=== PATIENT | female | born 1945 | race Caucasian/White ===

== ENCOUNTER 2021-03-10 14:08 | Outpatient (CLI) | payer MEDICARE, SELFPAY | END 2021-03-10 14:09 | disposition home or self-care (01) | LOC: ANHCOVIDVC 14:08 | PROVIDERS: PCP Family Medicine | DX: Z23 Encounter for immunization (principal) | CPT/HCPCS: 0001A; 91300 ==

== ENCOUNTER 2021-03-31 13:50 | Outpatient (CLI) | payer MEDICARE, SELFPAY | END 2021-03-31 13:51 | disposition home or self-care (01) | LOC: ANHCOVIDVC 13:50 | PROVIDERS: PCP Family Medicine | DX: Z23 Encounter for immunization (principal) | CPT/HCPCS: 0002A; 91300 ==

== ENCOUNTER 2021-06-11 07:30 | Outpatient (RCR) | payer MEDICARE, SELFPAY ==
--- NOTE | 2021-03-08 09:16 | PCWOUND ---
Wocn NOte Left messages on three separate days no answer from patient, left message with provider unable to schedule patent at this time.
[2021-04-09 13:43] VITALS: BMI 31.7
--- NOTE | 2021-05-07 12:21 | PCWOUND ---
WOCN NOTE patient unable to make appointment due to no transportation. Rescheduled for next Monday05/14/21 at 1300.
== END 2021-06-28 08:16 | disposition home or self-care (01) ==
LOC: ANHWOC 07:30
PROVIDERS: PCP Nurse Practitioner; Visit Provider Plastic Surgery
DX: L02.211 Cutaneous abscess of abdominal wall (principal)
CPT/HCPCS: 99211; 99212; G0463

== ENCOUNTER 2021-07-11 13:20 | Emergency (ER) | payer MEDICARE, SELFPAY ==
--- NOTE | ~2021-07-11 | CT_ITS ---
EXAMINATION: CT abdomen pelvis wo con DATE: 07/11/2021 14:33 INDICATION: Right flank pain TECHNIQUE: Computed tomography (CT) of the abdomen and pelvis was performed without intravenous contr ast. Automated exposure control and iterative reconstruction technique were employed. The dose-length product was 362.95 mGy-cm. COMPARISON: None FINDINGS: Lung bases are clear. Visualized inferior heart is normal. Atherosclerotic coronary artery calcific l esion. No pericardial or pleural effusion. There are few prominent paraesophageal lymph nodes near th e thoracic hiatus the largest measuring 8 mm in maximal short axis diameter. Cholecystectomy clips th e gallbladder fossa. Liver, spleen, pancreas and bilateral adrenal glands are normal. 1 mm nonobstruc ting stones at the lower pole of the left kidney and at the interpolar region of the right kidney. Un changed pattern of phleboliths and atherosclerotic calcific lesions the pelvis. No ureteral stones or hydronephrosis. Bowels including the appendix are normal. The uterus and bilateral ovaries are not i dentified and have likely been surgically resected a few surgical clips in the left and right pelvis which could be related to associated lymph node dissections. No free intraperitoneal gas or fluid. No pathologically enlarged abdominal or pelvic lymphadenopathy. Moderate to severe lower lumbar spondyl osis. IMPRESSION: 1. A couple bilateral obstructing 1 mm renal stones. No ureteral stones or hydronephrosis. Reviewed, dictated and finalized at location A. IMPRESSION: 1. A couple bilateral obstructing 1 mm renal stones. No ureteral stones or hydr onephrosis.
[2021-07-11 13:22] VITALS: BP 167/71; PULSE 78; RESP 17; TEMP 36.7; O2SAT 99
[2021-07-11 14:05] LABS: Basophils Percent Auto 0.4 % (0.2-1.2); Eosinophils Absolute Auto 0.1 K/mm3 (0-0.3); Eosinophils Percent Auto 0.9 % (0-4.4); Hematocrit 40.9 % (37.0-47.0); Hemoglobin 13.7 g/dL (12.0-15.0); Immature Granulocyte Absolute 0.04 K/mm3 (0.00-0.031); Immature Granulocyte Percent A 0.5 % (0-0.5); Lymphocytes Absolute Auto 0.92 K/mm3 (0.9-3.2); Lymphocytes Percent Auto 10.8 % (18.3-44.2); Mean Corpuscular HGB Conc 33.5 g/dl (32-36); Mean Corpuscular Volume 86.5 fl (80-100); Mean Platelet Volume 9.5 fl (7.4-10.4); Monocytes Absolute Auto 0.5 K/mm3 (0.1-0.6); Monocytes Percent Auto 6.1 % (2.6-8.5); Neutrophils Absolute Auto 6.9 K/mm3 (1.3-6.7); Neutrophils Percent Auto 81.3 % (45.5-73.1); Platelet Count Result 268 k/mm3 (150-375); Red Blood Count 4.73 M/mm3 (4.2-5.4); Red Cell Distribution Width 12.9 % (11.5-14.5); White Blood Count 8.5 K/mm3 (4.5-10.0)
[2021-07-11 14:14] LABS: Anion Gap 4 mmol/L (8-16); Blood Urea Nitrogen 16 mg/dL (7-17); Calcium 9.5 mg/dL (8.4-10.2); Carbon Dioxide 28 mmol/L (22-30); Chloride 102 mmol/L (98-107); Estimated CRCL calculation 71 ml/min; Estimated Glomerular Filt Rate > 60; Glucose 269 mg/dL (65-110); Potassium 4.1 mmol/L (3.4-5.0); Sodium 134 mmol/L (137-145)
[2021-07-11 16:08] VITALS: BP 145/73; PULSE 82; RESP 18; TEMP 36.9; O2SAT 99
--- NOTE | 2021-07-11 19:31 | ED.GENADULT ---
HPI - General Adult General Chief complaint: Urogenital-Female Stated complaint: right flank pain/ abd pain Time Seen by Provider: 07/11/21 18:19 Source: patient Mode of arrival: ambulatory Limitations: no limitations History of Present Illness HPI narrative: Patient presents for evaluation of right-sided abdominal pain intermittently for the last 2 days. Pain has been intermittent, occurring approximately 4 times per day lasting up to 8 hours at a time, although duration of episodes is variable. She states the pain is sharp, rated 6 out of 10 in severity. She has experienced nausea without vomiting. No fever, chills, change in bowel pattern. Last bowel movement was yesterday, solid, without the presence of blood or mucus in the stool. She denies any urinary symptoms on my initial interview but later states she has not urinated since last night. Surgical history positive for total hysterectomy. She does not consume ETOH. Denies additional complaints or concerns. Related Data Home Medications Medication Instructions Recorded Confirmed ferrous sulfate 325 mg (65 mg 325 mg PO DAILY 10/11/19 04/09/21 iron) tablet Allergies Allergy/AdvReac Type Severity Reaction Status Date / Time insulin glargine Allergy Unknown Unknown Verified 03/01/21 15:19 morphine Allergy Unknown Unknown Verified 03/01/21 15:19 Review of Systems Review of Systems: CONSTITUTIONAL: Denies fever, chills, or sweats. EYES: Denies visual changes, redness, or discharge. ENT: Denies rhinorrhea, congestion, sore throat, or otalgia. CARDIOVASCULAR: Denies chest pain, palpitations, or edema. RESPIRATORY: Denies cough or dyspnea. GASTROINTESTINAL: Reports right-sided abdominal pain with nausea but no vomiting. Denies constipation or diarrhea GENITOURINARY: Denies urinary frequency, dysuria, hematuria SKIN: Denies rash or itching. MUSCULOSKELETAL: Denies back pain, joint pain, or myalgia. NEUROLOGIC: Denies headache, numbness, dizziness, or weakness. PSYCHIATRIC: Denies anxiety or depression. [facility] Past Medical History Medical History (Updated 07/11/21 @ 20:31 by Efren Rider, [facility], ) CVA, old, hemiparesis Essential (primary) hypertension Hyperlipidemia, unspecified Major depressive disorder, single episode, unspecified Type 2 diabetes, uncontrolled, with neuropathy Surgical History Surgical History History of hysterectomy Family History Family History Father Family history of malignant neoplasm Hypertension Carcinoma of colon Family history of diabetes mellitus in first degree relative Mother Hypertension Cerebrovascular accident Sibling Hypertension Family history of diabetes mellitus in first degree relative Other Diabetes mellitus Family history of cardiovascular disease Social History Social History Smoking status: Never smoker Alcohol intake: never Gender identity (if verbalized by the patient): Female Exam Narrative: GENERAL: Well-appearing, well-nourished, and in no acute distress. HEAD: Normocephalic, atraumatic. EYES: PERRLA and EOMI. ENT: Nares clear, no rhinorrhea or epistaxis. Mucous membranes moist. Oropharynx without tonsillar hypertrophy exudate or other lesions. Bilateral TMs pearly márquez nonbulging NECK: Supple. No adenopathy or masses. No carotid bruits or JVD CHEST: Clear to auscultation. No respiratory distress. No wheezes rales or rhonchi HEART: Regular rate and rhythm. No murmur heard. Normal peripheral pulses. ABDOMEN: Soft, tender to right upper quadrant right lower quadrant and suprapubic region without rebound or guarding. Abdomen is nondistended, normal active bowel sounds. EXTREMITIES: Normal range of motion. No edema. SKIN: Warm, dry, no rash. NEURO: No focal deficits. Alert and oriented x3. PSYCH: No
[2021-07-11 20:03] LABS: Add Urine Microscopic? YES; Appearance Urine Clear (Clear); Bacteria Urine Trace /hpf; Bilirubin Urine Negative (Negative); Blood Urine 1+ (Negative); Color Urine Yellow (Yellow); Glucose Urine UA 3+ mg/dL (Negative); Ketones Urine Trace mg/dL (Negative); Leukocyte Esterase Ur Trace LEU/UL (Negative); Mucus Urine Rare /lpf; Nitrate Urine Negative (Negative); Protein Urine 2+ mg/dL (Negative); RBC Urine 0-2 /hpf (0-2); Specific Grav Ur 1.018 (1.001-1.035); Squamous Epithelial Cell Urine Few /hpf (Few); WBC Urine 0-3 /hpf
[2021-07-11] MEDS: KETOROLAC 30 MG/ML VIAL (*BKC) IM (20:16)
[2021-07-11 20:19] VITALS: BP 174/82; PULSE 73; RESP 22; O2SAT 100
[2021-07-11 20:55] LABS: Alanine Aminotransferase 22 U/L (4-35); Albumin Level 4.1 g/dL (3.5-5.1); Alkaline Phosphatase 69 U/L (38-126); Aspartate Amino Transferase 45 U/L (14-36); Bilirubin,Total 0.8 mg/dL (0.2-1.3); Lipase 141 U/L (23-300)
[2021-07-11 21:55] VITALS: BP 149/86; PULSE 84; RESP 17; O2SAT 97
== END 2021-07-11 21:56 | disposition home or self-care (01) ==
PROVIDERS: Emergency Medicine; Emergency Provider Nurse Practitioner; PCP Nurse Practitioner
DX: N20.0 Calculus of kidney (principal); I25.2 Old myocardial infarction; I10 Essential (primary) hypertension; E78.5 Hyperlipidemia, unspecified; F32.9 Major depressive disorder, single episode, unspecified; E11.9 Type 2 diabetes mellitus without complications
CPT/HCPCS: 36415; 74176; 80048; 80076; 81001; 83690; 85025; 96372; 99284; J1885

== ENCOUNTER 2022-01-26 17:30 | Outpatient (CLI) | payer MEDICARE, SELFPAY ==
--- NOTE | ~2022-01-26 | XR_ITS ---
XR hip LT min 3V w AP pelvis 01/26/2022 18:26 Indication: Left hip pain Procedure: AP pelvis and 3 views left Comparison: No prior studies for comparison. Findings: There is anatomic alignment. Pelvic rings are intact. No acute fracture or traumatic malali gnment. No significant soft tissue abnormality. No foreign bodies. There is lower lumbar spondylosis. Impression: 1: No acute bone or joint abnormality. Reviewed, dictated and finalized at location A. ORK STRATEGIST Impression: 1: No acute bone or joint abnormality.
--- NOTE | ~2022-01-26 | XR_ITS ---
XR knee RT 3V 01/26/2022 18:26 Indication: Right knee pain Procedure: 3 views right knee Comparison: 08/31/2010 Findings: There is a right total knee arthroplasty. There is a joint effusion. Prosthesis well seated . No fracture, subluxation or dislocation. There are loose bodies adjacent to the joint space. Impression: 1: No acute fracture. 2: Small joint effusion. Reviewed, dictated and finalized at location A. LE LIP TURNER Impression: 1: No acute fracture. 2: Small joint effusion.
== END 2022-01-26 17:31 | disposition home or self-care (01) ==
PROVIDERS: PCP Nurse Practitioner; Visit Provider Nurse Practitioner
DX: M25.561 Pain in right knee (principal); M25.559 Pain in unspecified hip; R26.81 Unsteadiness on feet; M25.461 Effusion, right knee
CPT/HCPCS: 73502; 73562

== ENCOUNTER 2022-01-26 18:19 | Emergency (ER) | payer MEDICARE, SELFPAY ==
[2022-01-26 18:28] VITALS: BP 146/67; PULSE 83; RESP 16; TEMP 36.6; O2SAT 100
--- NOTE | 2022-01-26 18:33 | ECG_ITS ---
Measurements Intervals [place] Rate: 73 P: 32 CT: 128 QRS: 15 QRSD: 84 T: 64 QT: 378 QTc: 418 Interpretive Statements SINUS RHYTHM NONSPECIFIC ST & T-WAVE ABNORMALITY ABNORMAL ECG NO PREVIOUS ECG AVAILABLE FOR COMPARISON Electronically Signed On 01-27-2022 9:45:20 LINEN ROOM ATTENDANT by Efren Sellers M.D.
[2022-01-26 18:56] LABS: Basophils Absolute Auto 0.1 K/mm3 (0.0-0.1); Basophils Percent Auto 0.5 % (0.2-1.2); Eosinophils Absolute Auto 0.1 K/mm3 (0-0.3); Eosinophils Percent Auto 0.6 % (0-4.4); Hematocrit 40.9 % (37.0-47.0); Hemoglobin 13.6 g/dL (12.0-15.0); Immature Granulocyte Absolute 0.05 K/mm3 (0.00-0.031); Immature Granulocyte Percent A 0.5 % (0-0.5); Lymphocytes Absolute Auto 1.73 K/mm3 (0.9-3.2); Lymphocytes Percent Auto 16.3 % (18.3-44.2); Mean Corpuscular HGB Conc 33.3 g/dl (32-36); Mean Corpuscular Hemoglobin 29.6 pg (26-34); Mean Corpuscular Volume 88.9 fl (80-100); Mean Platelet Volume 9.5 fl (7.4-10.4); Monocytes Absolute Auto 0.6 K/mm3 (0.1-0.6); Neutrophils Absolute Auto 8.1 K/mm3 (1.3-6.7); Neutrophils Percent Auto 76.1 % (45.5-73.1); Platelet Count Result 269 k/mm3 (150-375); White Blood Count 10.6 K/mm3 (4.5-10.0)
[2022-01-26 19:05] LABS: Alanine Aminotransferase 21 U/L (4-35); Albumin Level 4.4 g/dL (3.5-5.1); Alkaline Phosphatase 96 U/L (38-126); Anion Gap 9 mmol/L (8-16); Aspartate Amino Transferase 51 U/L (14-36); Bilirubin,Total 0.5 mg/dL (0.2-1.3); Blood Urea Nitrogen 15 mg/dL (7-17); Calcium 9.6 mg/dL (8.4-10.2); Carbon Dioxide 26 mmol/L (22-30); Chloride 105 mmol/L (98-107); Estimated CRCL calculation 64 ml/min; Estimated Glomerular Filt Rate > 60; Glucose 162 mg/dL (65-110); Potassium 4.3 mmol/L (3.4-5.0); Sodium 140 mmol/L (137-145)
[2022-01-26] MEDS: MECLIZINE HCL 25 MG TABLET PO (19:08)
--- NOTE | 2022-01-26 19:40 | ED.GENADULT ---
HPI - General Adult General Chief complaint: Recheck/Abnormal Lab/Rx Stated complaint: HTN, NAUSEA/DIZZY Time Seen by Provider: 01/26/22 18:40 History of Present Illness HPI narrative: Patient is a 76-year-old female who presents ER with complaint of high blood pressure. Patient saw her PCP today for myriad of issues. She was in outpatient imaging when she got dizzy. It was then found that her systolic blood pressure was in the 200s. Patient reports has been having intermittent dizziness for 2 weeks. Worse with leaning forward and turning her head. Occasionally associated with nausea but no vomiting. Has history of vertigo but does not take medication for it. No chest pain or chest pressure. No focal weakness in arm or leg. No slurred speech. Related Data Home Medications Medication Instructions Recorded Confirmed ferrous sulfate 325 mg (65 mg 325 mg PO DAILY 10/11/19 01/26/22 iron) tablet [id number]-tfj-zcvp-FA-lutein 1 tablet PO DAILY 11/25/21 01/26/22 [Centrum Silver Women] aspirin [Adult Low Dose Aspirin] 81 mg PO DAILY 12/16/21 01/26/22 Allergies Allergy/AdvReac Type Severity Reaction Status Date / Time morphine AdvReac Unknown Nausea and Verified 01/26/22 20:02 Vomiting Review of Systems Review of Systems: All systems reviewed & are unremarkable except as noted in HPI and below Constitutional: Constitutional: Denies chills, Denies fever(s) and Denies weakness ENT: Reports dizziness, Denies nasal congestion and Denies sore throat Cardiovascular: Cardiovascular: Denies chest pain, Denies rapid heart rate and Denies radiating jaw, neck or arm pain Respiratory: Respiratory: Denies cough, Denies dyspnea and Denies wheezing Gastrointestinal: Gastrointestinal: Denies abdominal pain, Reports nausea and Denies vomiting Comments: Dark stools PMFSH Past Medical History Medical History CVA, old, hemiparesis Essential (primary) hypertension Hyperlipidemia, unspecified Major depressive disorder, single episode, unspecified Renal and ureteric calculus (06/2021) Type 2 diabetes, uncontrolled, with neuropathy Surgical History Surgical History History of hysterectomy Family History Family History Father Family history of malignant neoplasm Hypertension Carcinoma of colon Family history of diabetes mellitus in first degree relative Mother Hypertension Cerebrovascular accident Sibling Hypertension Family history of diabetes mellitus in first degree relative Other Diabetes mellitus Family history of cardiovascular disease Social History Social History Smoking status: Never smoker Alcohol intake: never Substance use: never Substance use type: does not use Gender identity (if verbalized by the patient): Female Sexual Orientation (if Verbalized by the Patient): Straight or Heterosexual Spiritual care concerns: No Exam Narrative: GENERAL: Well-appearing, well-nourished, and in no acute distress. HEAD: Normocephalic, atraumatic. EYES: PERRL and EOMI. left gaze nystagmus. ENT: Mucous membranes moist. CHEST: Clear to auscultation. No respiratory distress. HEART: Regular rate and rhythm. Normal peripheral pulses. ABDOMEN: Soft, nontender, nondistended. EXTREMITIES: Chronic left sided weakness. Right side with normal strength. No deformity. SKIN: Warm, dry, no rash. NEURO: Chronic weakness left sided extremity from previous stroke. Otherwise no acute neurologic deficit. Alert and oriented x3. PSYCH: Normal mood and affect. Course Course Emergency Course: Patient's dizziness improved with meclizine. Discharge home. Vital Signs Vital signs: Vital Signs Temperature 97.8 F 01/26/22 18:28 Pulse Rate 83 01/26/22 18:28 Respiratory Rate 16 01/26/22 18:28
[2022-01-26] MEDS: SODIUM CHLORIDE 0.9% IV 500 ML 999 ML IV CONT (20:02)
[2022-01-26] MEDS: ONDANSETRON INJ 4 MG/2 ML VIAL IV PUSH (20:06)
--- NOTE | 2022-01-26 21:45 | PC.NURSE ---
Patient still experiencing symptoms of dizziness and Nausea. EDP aware. Patient was a 2 assist to the car and was extremely dizzy while transferring to the car.
[2022-01-26 21:52] VITALS: BP 150/75; PULSE 78; RESP 18; O2SAT 99
== END 2022-01-26 21:57 | disposition home or self-care (01) ==
PROVIDERS: Emergency Provider Emergency Medicine; PCP Nurse Practitioner
DX: H81.10 Benign paroxysmal vertigo, unspecified ear (principal); I10 Essential (primary) hypertension; E78.5 Hyperlipidemia, unspecified; E11.40 Type 2 diabetes mellitus with diabetic neuropathy, unspecified; I69.959 Hemiplegia and hemiparesis following unspecified cerebrovascular disease affecting unspecified side; F32.9 Major depressive disorder, single episode, unspecified; Z87.442 Personal history of urinary calculi; Z79.82 Long term (current) use of aspirin; Z79.4 Long term (current) use of insulin; R94.31 Abnormal electrocardiogram [ECG] [EKG]
CPT/HCPCS: 36415; 73502; 73562; 80053; 85025; 93005; 96361; 96374; 99284; A9270; J2405; J7040

== ENCOUNTER 2022-02-01 14:30 | Outpatient (CLI) | payer MEDICARE, SELFPAY ==
--- NOTE | ~2022-02-01 | US_ITS ---
EXAMINATION: US carotid duplex BI EXAM DATE: 02/01/2022 15:41 INDICATION: R42 - Dizziness and giddiness. TECHNIQUE: Grayscale, color and pulsed Doppler images of the cervical carotid arteries were obtained . The degree of vessel stenosis is placed in one of the following categories: normal, <50% stenosis, 50-69% stenosis, >=70% stenosis but less than near-occlusion, near-occlusion, or occlusion. Note that percent stenosis relative to normal distal artery lumen diameter is indirectly measured from velocit y measurements as described by Jose Martin, et al. Radiology 2003; [id number]:[id number]. Comparison is made to prior examination from 01/24/2018. FINDINGS: RIGHT SIDE: Right common carotid artery peak systolic velocity (PSV in cm/s): 85 Right bulb/internal carotid artery peak systolic velocity (PSV in cm/s): 100 Right internal carotid artery end diastolic velocity (EDV in cm/s): 18 Right ICA/CCA peak systolic ratio: 1.2 Right external carotid artery peak systolic velocity (PSV in cm/s): 53 Right vertebral artery antegrade flow: yes There is mild carotid bulb plaque. Velocity and Doppler waveforms in the common and internal carotid arteries is normal. LEFT SIDE: Left common carotid artery peak systolic velocity (PSV in cm/s): 87 Left bulb/internal carotid artery peak systolic velocity (PSV in cm/s): 45 Left internal carotid artery end diastolic velocity (EDV in cm/s): 13.5 Left ICA/CCA peak systolic ratio: 0.5 Left external carotid artery peak systolic velocity (PSV in cm/s): 45 Left vertebral artery antegrade flow: yes There is mild carotid bulb plaque. Velocity and Doppler waveforms in the common and internal carotid arteries is normal. IMPRESSION: 1. Less than 50 percent stenosis in the right internal carotid artery. 2. Less than 50 percent stenosis in the left internal carotid artery. > Reviewed, dictated and finalized at location A. [facility]
== END 2022-02-01 14:31 | disposition home or self-care (01) ==
LOC: ANHIMG 14:31
PROVIDERS: PCP Nurse Practitioner; Visit Provider Nurse Practitioner
DX: I65.23 Occlusion and stenosis of bilateral carotid arteries (principal); R42 Dizziness and giddiness; R06.02 Shortness of breath
CPT/HCPCS: 93880

== ENCOUNTER 2022-11-02 14:34 | Outpatient (NON) | payer MEDICARE, SELFPAY ==
[2022-11-02 19:51] LABS: Creatinine Urine 70.2 mg/dL
[2022-11-02 19:56] LABS: MALB Creatinine Ratio 121.7 mg/g (0-30); Microalbumin Urine Random 85.4 mg/L (0-16.7)
== END 2022-11-02 14:35 | disposition home or self-care (01) ==
LOC: ANHGOSHLAB 14:38
PROVIDERS: PCP Family Medicine; Visit Provider Nurse Practitioner
DX: E11.9 Type 2 diabetes mellitus without complications (principal)
CPT/HCPCS: 82043

== ENCOUNTER 2022-11-03 10:38 | Outpatient (CLI) | payer MEDICARE, SELFPAY ==
[2022-11-03 19:17] LABS: Basophils Percent Auto 0.3 % (0.2-1.2); Eosinophils Absolute Auto 0.1 K/mm3 (0-0.3); Eosinophils Percent Auto 1.2 % (0-4.4); Hematocrit 41.1 % (37.0-47.0); Hemoglobin 12.9 g/dL (12.0-15.0); Immature Granulocyte Absolute 0.04 K/mm3 (0.00-0.031); Immature Granulocyte Percent A 0.4 % (0-0.5); Lymphocytes Absolute Auto 1.41 K/mm3 (0.9-3.2); Lymphocytes Percent Auto 13.4 % (18.3-44.2); Mean Corpuscular HGB Conc 31.4 g/dl (32-36); Mean Corpuscular Volume 92.4 fl (80-100); Mean Platelet Volume 10.1 fl (7.4-10.4); Monocytes Absolute Auto 0.7 K/mm3 (0.1-0.6); Monocytes Percent Auto 6.5 % (2.6-8.5); Neutrophils Absolute Auto 8.3 K/mm3 (1.3-6.7); Neutrophils Percent Auto 78.2 % (45.5-73.1); Platelet Count Result 306 k/mm3 (150-375); Red Blood Count 4.45 M/mm3 (4.2-5.4); Red Cell Distribution Width 13.8 % (11.5-14.5); White Blood Count 10.6 K/mm3 (4.5-10.0)
[2022-11-03 19:47] LABS: Hemoglobin A1C 7.7 % (<5.7)
[2022-11-03 20:09] LABS: Alanine Aminotransferase 31 U/L (6-35); Albumin Level 4.4 g/dL (3.5-5.1); Alkaline Phosphatase 92 U/L (38-126); Anion Gap 7 mmol/L (8-16); Aspartate Amino Transferase 54 U/L (14-36); Bilirubin,Total 0.4 mg/dL (0.2-1.3); Blood Urea Nitrogen 18 mg/dL (7-17); Calcium 9.3 mg/dL (8.4-10.2); Carbon Dioxide 28 mmol/L (22-30); Chloride 108 mmol/L (98-107); Cholesterol 154 mg/dL (0-200); Estimated Glomerular Filt Rate > 60; Glucose 147 mg/dL (65-110); HDL Direct 49 mg/dL; Potassium 4.6 mmol/L (3.4-5.0); Sodium 143 mmol/L (137-145); Triglycerides 101 mg/dL (<150)
[2022-11-03 20:20] LABS: LDL Cholesterol Direct 76 mg/dL
== END 2022-11-03 10:39 | disposition home or self-care (01) ==
LOC: ANHGOSHLAB 10:41
PROVIDERS: PCP Family Medicine; Visit Provider Nurse Practitioner
DX: E78.5 Hyperlipidemia, unspecified (principal); I10 Essential (primary) hypertension; E11.9 Type 2 diabetes mellitus without complications
CPT/HCPCS: 36415; 80053; 80061; 83036; 85025

== ENCOUNTER 2023-05-22 14:54 | Outpatient (CLI) | payer MEDICARE, SELFPAY ==
[2023-05-22 19:19] LABS: Alanine Aminotransferase 31 U/L (6-35); Albumin Level 4.2 g/dL (3.5-5.1); Alkaline Phosphatase 72 U/L (38-126); Anion Gap 7 mmol/L (8-16); Aspartate Amino Transferase 55 U/L (14-36); Bilirubin,Total 0.7 mg/dL (0.2-1.3); Blood Urea Nitrogen 19 mg/dL (7-17); Calcium 9.6 mg/dL (8.4-10.2); Carbon Dioxide 31 mmol/L (22-30); Chloride 103 mmol/L (98-107); Estimated Glomerular Filt Rate > 60; Glucose 149 mg/dL (65-110); Potassium 4.5 mmol/L (3.4-5.0); Sodium 141 mmol/L (137-145)
[2023-05-22 19:37] LABS: Vitamin D 25 Hydroxy 29.9 ng/mL
== END 2023-05-22 14:55 | disposition home or self-care (01) ==
LOC: ANHGOSHLAB 14:55
PROVIDERS: PCP Family Medicine; Visit Provider Family Medicine
DX: E11.9 Type 2 diabetes mellitus without complications (principal); I10 Essential (primary) hypertension; E78.5 Hyperlipidemia, unspecified; E55.9 Vitamin D deficiency, unspecified
CPT/HCPCS: 36415; 80053; 82306; 83036; 84443

== ENCOUNTER 2023-09-26 15:52 | Outpatient (CLI) | payer MEDICARE, SELFPAY ==
[2023-09-26 18:46] LABS: Alanine Aminotransferase 38 U/L (6-35); Albumin Level 4.7 g/dL (3.5-5.1); Alkaline Phosphatase 79 U/L (38-126); Anion Gap 7 mmol/L (8-16); Aspartate Amino Transferase 54 U/L (14-36); Bilirubin,Total 0.6 mg/dL (0.2-1.3); Blood Urea Nitrogen 22 mg/dL (7-17); Calcium 10.2 mg/dL (8.4-10.2); Carbon Dioxide 31 mmol/L (22-30); Chloride 101 mmol/L (98-107); Cholesterol 197 mg/dL (0-200); Estimated Glomerular Filt Rate > 60; Glucose 152 mg/dL (65-110); HDL Direct 54 mg/dL; Potassium 4.3 mmol/L (3.4-5.0); Sodium 139 mmol/L (137-145); Triglycerides 91 mg/dL (<150)
[2023-09-26 18:58] LABS: LDL Cholesterol Direct 107 mg/dL
[2023-09-26 19:04] LABS: Creatinine Urine 46.5 mg/dL
[2023-09-26 19:34] LABS: Vitamin D 25 Hydroxy 61.9 ng/mL
[2023-09-26 19:56] LABS: Basophils Percent Auto 0.4 % (0.2-1.2); Eosinophils Absolute Auto 0.2 K/mm3 (0-0.3); Hematocrit 42.9 % (37.0-47.0); Hemoglobin 13.8 g/dL (12.0-15.0); Immature Granulocyte Absolute 0.06 K/mm3 (0.00-0.031); Immature Granulocyte Percent A 0.6 % (0-0.5); Lymphocytes Absolute Auto 1.77 K/mm3 (0.9-3.2); Lymphocytes Percent Auto 17.3 % (18.3-44.2); Mean Corpuscular HGB Conc 32.2 g/dl (32-36); Mean Corpuscular Hemoglobin 29.6 pg (26-34); Mean Corpuscular Volume 91.9 fl (80-100); Mean Platelet Volume 10.5 fl (7.4-10.4); Monocytes Absolute Auto 0.8 K/mm3 (0.1-0.6); Monocytes Percent Auto 7.4 % (2.6-8.5); Neutrophils Absolute Auto 7.4 K/mm3 (1.3-6.7); Neutrophils Percent Auto 72.3 % (45.5-73.1); Platelet Count Result 269 k/mm3 (150-375); Red Blood Count 4.67 M/mm3 (4.2-5.4); Red Cell Distribution Width 13.8 % (11.5-14.5); White Blood Count 10.2 K/mm3 (4.5-10.0)
[2023-09-27] LABS: Hemoglobin A1C 8.1 % (<5.7)
== END 2023-09-26 15:53 | disposition home or self-care (01) ==
LOC: ANHGOSHLAB 15:54
PROVIDERS: PCP Family Medicine; Visit Provider Family Medicine
DX: F32.0 Major depressive disorder, single episode, mild (principal); E11.9 Type 2 diabetes mellitus without complications; E55.9 Vitamin D deficiency, unspecified; I10 Essential (primary) hypertension; E53.8 Deficiency of other specified B group vitamins; E78.5 Hyperlipidemia, unspecified
CPT/HCPCS: 36415; 80053; 80061; 82043; 82306; 82607; 83036; 84443; 85025

== ENCOUNTER 2024-04-02 16:39 | Inpatient (IN) | payer MEDICARE, SELFPAY ==
[2024-04-02] VITALS (29 sets, daily range): BP systolic 100–135; BP diastolic 35–84; PULSE 68–87; RESP 13–30; TEMP 35.8–36.8; O2SAT 96–100
--- NOTE | ~2024-04-02 | XR_ITS ---
EXAMINATION: XR chest 1V portable Exam Date/Time: 04/02/2024 20:45 CDT HISTORY: sepsis w/u Comparison: 01/23/2018. RESULT: Lines, tubes, and devices: Cholecystectomy clips. Lungs and pleura: Clear. Cardiomediastinal silhouette: Stable. Other: No acute osseous or upper abdominal finding. IMPRESSION: No acute cardiopulmonary process. Reviewed, dictated and finalized at location K.
--- NOTE | ~2024-04-02 | CT_ITS ---
EXAMINATION: CT abdomen pelvis wo con DATE: 04/02/2024 20:04 INDICATION: n/v/d, melena, gib TECHNIQUE: Computed tomography (CT) of the abdomen and pelvis was performed without intravenous contr ast. Automated exposure control and iterative reconstruction technique were employed. The dose-length product was 512.71 mGy-cm. COMPARISON: 07/11/2021. FINDINGS: Motion limited examination. Lower thorax: Coronary artery calcifications. Liver: Normal. Biliary/Gallbladder: Gallbladder is absent. No bile duct dilation. Pancreas: No mass or duct dilation. Spleen: Normal. Adrenals:No mass. Kidneys: No suspicious mass, obstructing stone, or hydronephrosis. Punctate nonobstructing bilateral calculi. GI tract: No small or large bowel dilation. Normal appendix. Mesentery/Peritoneum: No ascites, mass, or free air. Retroperitoneum: No mass. Atherosclerotic abdominal aortic and/or arterial calcifications. Pelvis: Normal urinary bladder. Absent uterus. Bilateral ovaries not visualized. Suggestion of an ankur/rectal mass measuring 4.7 cm. Soft Tissues: Soft tissues and body wall unremarkable. Bones: No acute osseous finding. IMPRESSION: 4.7 cm anal/rectal mass, correlate with physical exam and RAMONE findings. Consider referral for proctos copy. Reviewed, dictated and finalized at location K. IMPRESSION: 4.7 cm anal/rectal mass, correlate with physical exam and RAMONE findings. Conside r referral for proctoscopy.
[2024-04-02] MEDS: SODIUM CHLORIDE 0.9% IV 1,000 ML 999 ML IV CONT ×2 (17:07→18:07)
--- NOTE | 2024-04-02 17:53 | ED.GIBLEED ---
HPI - GI Bleed General Chief complaint: GI Bleed Stated complaint: gi bleed Time Seen by Provider: 04/02/24 16:58 Source: patient and family Mode of arrival: EMS Limitations: no limitations History of Present Illness HPI Narrative: Patient is a 78 y/o female, with PMH of CVA, who presents to the ED via EMS with report of weakness, abdominal pain, possible GI bleeding. Patient is a poor historian. Family at bedside assisted in providing information. Patient reports she has been feeling ill, weak, and fatigued for the past 2 days. C/o N/V/D. Family noted patient to have profuse diarrhea today, that was dark in color. They state she was very lethargic and frail today so EMS was called. Patient reportedly had a large episode of dark brown emesis upon EMS's arrival. Patient also c/o mid abdominal pain. Denies fevers, cough, cold sx's, focal weakness, numbness. Patient is typically independent with ADLs/medications. Nephew lives downstairs and helps when needed. Did not take her insulin today. BG in the 400s per EMS. Patient does take naproxen several times per week. Related Data Home Medications Medication Instructions Recorded Confirmed ferrous sulfate 325 mg (65 mg 325 mg PO DAILY 10/11/19 09/26/23 iron) tablet hxgtimep-jusi-ahgy 8 mg-folic 400 1 tablet PO DAILY 11/25/21 09/26/23 mcg-K 50 mcg-lutein 300 mcg tablet (Centrum Silver Women) aspirin 81 mg tablet 81 mg PO DAILY 12/16/21 09/26/23 ascorbic acid (vitamin C) 1,000 mg 1 g PO DAILY 09/26/23 09/26/23 capsule Allergies Allergy/AdvReac Type Severity Reaction Status Date / Time morphine AdvReac Unknown Nausea and Verified 09/26/23 14:54 Vomiting Review of Systems Review of Systems: CONSTITUTIONAL: Denies fever, chills, or sweats. CARDIOVASCULAR: Denies chest pain. RESPIRATORY: Denies cough or dyspnea. GASTROINTESTINAL: See HPI. GENITOURINARY: Denies dysuria or hematuria. NEUROLOGIC: Denies headache, dizziness, numbness, or weakness. All systems reviewed & are unremarkable except as noted in HPI and below PMFSH Past Medical History Medical History Arthritis CVA, old, hemiparesis Essential (primary) hypertension Family history of colon cancer in father History of stroke with residual deficit (~01/2018) left sided weakness Hyperlipidemia, unspecified Major depressive disorder, single episode, unspecified Renal and ureteric calculus (06/2021) Type 2 diabetes, uncontrolled, with neuropathy Vertigo Vitamin D deficiency Surgical History Surgical History History of hysterectomy Family History Family History Father Family history of malignant neoplasm Hypertension Carcinoma of colon Family history of diabetes mellitus in first degree relative Mother Hypertension Cerebrovascular accident Sibling Hypertension Family history of diabetes mellitus in first degree relative Other Diabetes mellitus Family history of cardiovascular disease Social History Social History Smoking status: Never smoker Alcohol intake: never Substance use: never Substance use type: does not use Lack of Transportation: No Lack of Food: Never True Current Housing: I Have Housing Concerned About Future Housing: No Difficulty Paying Gas/Electric Bills: No Difficulty Paying for Meds: No Currently Unemployed: No Education: High School Diploma/GED Difficulty w/ Childcare or Family Care: No Living arrangements: with family Gender identity (if verbalized by the patient): Female Sexual Orientation (if Verbalized by the Patient): Straight or Heterosexual Spiritual care concerns: No Exam Narrative: GENERAL: Ill/pale-appearing, toxic, actively vomiting on exam. HEAD: Normocephalic, atraumati
[2024-04-02] MEDS: PANTOPRAZOLE SODIUM IV 40 MG VIAL IV PUSH (18:07)
[2024-04-02 18:16] LABS: Glucose Point of Care 382 mg/dl (65-105)
--- NOTE | 2024-04-02 18:36 | PC.NURSE ---
unable to get blood work on patient. Ama Heller Hannah, and Elizabeth attempted to get blood. phlebotomy was called for assistance. urine sample delayed while attempting to get blood samples
[2024-04-02] MEDS: ONDANSETRON INJ 4 MG/2 ML VIAL IV PUSH ×2 (19:08→21:54)
[2024-04-02 19:13] LABS: INR 1.3; Prothrombin Time 16.5 Seconds (11.1-14.7)
[2024-04-02 19:14] LABS: Partial Thromboplastin Time 24.2 Seconds (22.3-36.8)
[2024-04-02 19:26] LABS: Alanine Aminotransferase 27 U/L (6-35); Albumin Level 3.5 g/dL (3.5-5.1); Alkaline Phosphatase 73 U/L (38-126); Anion Gap 13 mmol/L (4-12); Aspartate Amino Transferase 40 U/L (14-36); Bilirubin,Total 0.5 mg/dL (0.2-1.3); Blood Urea Nitrogen 82 mg/dL (7-17); Calcium 8.8 mg/dL (8.4-10.2); Carbon Dioxide 16 mmol/L (22-30); Chloride 106 mmol/L (98-107); Estimated CRCL calculation 20 ml/min; Estimated Glomerular Filt Rate 26; Glucose 392 mg/dL (65-110); Lactic Acid Reflex 3.1 mmol/L (0.7-2.0); Potassium 5.8 mmol/L (3.4-5.0); Sodium 135 mmol/L (137-145)
--- NOTE | 2024-04-02 19:37 | ECG_ITS ---
SEE SCANNED COPY FOR CONFIRMED REPORT MTDD
[2024-04-02] MEDS: SODIUM BICARBONATE 8.4% 50 MEQ/50 ML SYRINGE IV PUSH (19:43)
[2024-04-02] MEDS: INSULIN HUMAN REGULAR (*BKC) 100 UNITS/ML 6 UNITS IV PUSH (19:43)
[2024-04-02 19:45] LABS: Alveolar/Arterial O2 Gradient 23.6 mmHg; Base Excess ABG -5.3 mEq/l (+/-2.0); Carboxyhemoglobin 0.1 % THb (0-2.0); Fractional Inspired Oxygen 21 %; HCO3 ABG 18.6 mEq/l (22.0-26.0); Methemoglobin ABG 0.5 %THb (0-1.5); Oxygen Content ABG 7.9 %vol (16.0-22.0); Oxygen Saturation ABG 97.3 % (95.0-100.0); Oxyhemoglobin 94.8 % THb (90.0-100.0); PCO2 ABG 28.8 mmHg (35.0-45.0); PO2 ABG 91.6 mmHg (80.0-100.0); PO2 FiO2 Ratio Arterial Blood 4.36 %; Reduced Hemoglobin 4.6 %THb (0-5.0); pH ABG 7.428 (7.350-7.450)
[2024-04-02 19:46] LABS: Device ROOM AIR; Modified Allen's Test Pass; Site Drawn RIGHT RADIAL; Total Hemoglobin 5.8 g/dL (12.0-18.0)
[2024-04-02 19:46] LABS: Basophils Absolute Auto 0.1 K/mm3 (0.0-0.1); Basophils Percent Auto 0.2 % (0.2-1.2); Immature Granulocyte Absolute 1.21 K/mm3 (0.00-0.031); Immature Granulocyte Percent A 4.1 % (0-0.5); Lymphocytes Absolute Auto 1.84 K/mm3 (0.9-3.2); Lymphocytes Percent Auto 6.3 % (18.3-44.2); Mean Corpuscular HGB Conc 30.9 g/dl (32-36); Mean Corpuscular Hemoglobin 27.9 pg (26-34); Mean Platelet Volume 10.1 fl (7.4-10.4); Monocytes Absolute Auto 0.9 K/mm3 (0.1-0.6); Monocytes Percent Auto 3.1 % (2.6-8.5); Neutrophils Absolute Auto 25.3 K/mm3 (1.3-6.7); Neutrophils Percent Auto 86.3 % (45.5-73.1); Platelet Count Result 443 k/mm3 (150-375); Red Blood Count 2.01 M/mm3 (4.2-5.4); Red Cell Distribution Width 14.8 % (11.5-14.5); White Blood Count 29.3 K/mm3 (4.5-10.0)
[2024-04-02 19:56] LABS: Hematocrit 18.1 % (37.0-47.0); Hemoglobin 5.6 g/dL (12.0-15.0)
[2024-04-02 20:05] LABS: Beta-Hydroxybutyrate/Acetoacetate 0.79 mmol/L (0.02-0.27)
[2024-04-02] MEDS: CALCIUM GLUC 1,000 MG/NS 50 ML 1,000 MG/50 ML BAG 100 MG IVPB (20:05)
[2024-04-02 20:07] LABS: Appearance Urine Turbid (Clear); Bacteria Urine 4+ /hpf; Bilirubin Urine Negative (Negative); Blood Urine 2+ (Negative); Color Urine Yellow (Yellow); Glucose Urine UA 1+ mg/dL (Negative); Ketones Urine Negative (Negative); Leukocyte Esterase Ur 3+ LEU/UL (Negative); Need Manual Microscopic Reviewed; Nitrate Urine Negative (Negative); Non Pathogenic Casts >20; Protein Urine 2+ mg/dL (Negative); RBC Urine 0-2 /hpf (0-2); Specific Grav Ur 1.012 (1.001-1.035); Squamous Epithelial Cell Urine Occasional /hpf (Few); WBC Urine >100 /hpf (0-3); pH Urine 5.5 (5.0-9.0)
[2024-04-02 20:08] LABS: Add Urine Microscopic? YES
[2024-04-02 20:25] LABS: CRP 2.8 mg/dL (<1.0)
[2024-04-02 20:37] LABS: Glucose Point of Care 304 mg/dl (65-105)
[2024-04-02 20:42] LABS: Procalcitonin 0.8 ng/mL
[2024-04-02] MEDS: CEFEPIME 2 GM/NS 50 ML 2 GM/50 ML BAG IVPB (20:59)
[2024-04-02] MEDS: VANCOMYCIN 1,000 MG/NS 250 ML 1,000 MG/250 ML BAG 250 MG IVPB (21:02)
[2024-04-02] MEDS: TUBING, BLOOD PLUM PUMP TUBING 1 EACH XX (21:04)
[2024-04-02] MEDS: TUBING, BLOOD SET 1 EACH XX (21:04)
[2024-04-02] MEDS: SODIUM CHLORIDE 0.9% IV 250 ML 30 ML IV CONT (21:13)
--- NOTE | 2024-04-02 21:18 | PC.NURSE ---
while changing patients depends, a bed sore on coccyx was noted in early stages. provider notified
[2024-04-02 21:32] LABS: Troponin I < 0.012 ng/mL (0.000-0.034)
[2024-04-02 21:58] LABS: Reflex Lactic Acid Yes or No Add Lactic
[2024-04-02 22:33] LABS: Lactic Acid 2.5 mmol/L (0.7-2.0)
[2024-04-02] MEDS: SODIUM CHLORIDE 0.9% IV 250 ML (23:08)
--- NOTE | 2024-04-02 23:08 | PC.NURSE ---
250ml NS 0.9% VORB for blood transfusions.
--- NOTE | 2024-04-02 23:09 | PC.NURSE ---
care and report given to TISHA Barrera. all questions answered.
[2024-04-03] VITALS (15 sets, daily range): BP systolic 87–143; BP diastolic 35–94; PULSE 66–85; RESP 15–20; TEMP 36.2–36.9; O2SAT 95–100; BMI 28.5
[2024-04-03 02:23] LABS: Hematocrit 25.7 % (37.0-47.0); Hemoglobin 8.4 g/dL (12.0-15.0)
[2024-04-03 02:35] LABS: Anion Gap 11 mmol/L (4-12); Blood Urea Nitrogen 72 mg/dL (7-17); Calcium 9.2 mg/dL (8.4-10.2); Carbon Dioxide 20 mmol/L (22-30); Chloride 108 mmol/L (98-107); Estimated CRCL calculation 23 ml/min; Estimated Glomerular Filt Rate 29; Glucose 309 mg/dL (65-110); Potassium 4.9 mmol/L (3.4-5.0); Sodium 139 mmol/L (137-145)
[2024-04-03 03:24] LABS: Glucose Point of Care 293 mg/dl (65-105)
[2024-04-03] MEDS: INSULIN ASPART (*BKC) 100 UNITS/ML SUB-Q ×3 (03:35→16:25)
--- NOTE | 2024-04-03 06:30 | ADMGEN ---
This patient, Florence Barba, was admitted to Intensive Care Unit-1. Patient/family oriented to hospital policies and general routines including ID bracelet, bed and alarms, visiting hours, pain management, procedures, bathroom and other care routines, personal items, smoking policy, room service/diet, and visiting hours. Information on how to activate the Rapid Response Team has been discussed. Patient/Family are encouraged to report perceived risks to care and to ask questions if they do not understand what they are told or what they should do.
--- NOTE | 2024-04-03 06:30 | PM.IMHP ---
H&P: HPI History of Present Illness Date/Time: 04/03/24 06:30 Chief Complaint: Vomiting coffee-ground, dark stools Narrative: 78-year-old female with a past medical history of essential hypertension, type 2 diabetes mellitus, hyperlipidemia, gastritis, chronic low back pain with naproxen use who presented to the ER with coffee-ground emesis and dark stools. In the ER rectal exam was performed which demonstrated frankly melenic stools. Patient is alert oriented to person place and time but is a poor historian. When asked how long she has been in the hospital she states that she has been in the hospital for 6 or 7 days. The patient had just been admitted just prior to midnight. The patient states that she has been taking naproxen on a daily basis just but every night due to headaches. She states that the naproxen does not really help her headaches. She does have frequent heartburn symptoms and indicates that she frequently has discomfort in her epigastric region. She denied actually having any vomiting but on exam patient has evidence of recent coffee-ground emesis on her mucous membranes. Patient denied having diarrheal stools but patient had already had 2 melenic stools in the ER and had another melenic stool on arrival to the ICU. She denies any chest pain or shortness of breath. She denied ever having prior GI bleed, colonoscopy or EGD. She does not have history of chronic kidney disease but creatinine in the ER was elevated to 1.9 from baseline of 0.6. BUN was elevated to 82. Hemoglobin was markedly low at 5.6. The patient usually has a relative elevated serum bicarb above 30 but is currently around 16. White count was also acutely elevated at 29,000. 2 units of packed red blood cells was ordered in the ER and GI was consulted. Patient was started on Protonix and admitted for evaluation of GI bleed. She reports symptoms of peripheral neuropathy. He has cloudy vision with cataracts noted. She does snore but has never been tested for sleep apnea. Review of Systems Review of Systems: 12 systems were reviewed with pertinent positives and negatives per HPI. Except as documented in the HPI, all other systems were reviewed and are negative. [facility] Past Medical History Medical History (Updated 04/03/24 @ 21:43 by Misty Clayton DO) Arthritis Diabetic peripheral neuropathy Essential (primary) hypertension Family history of colon cancer in father History of stroke with residual deficit (~01/2018) left sided weakness Hyperlipidemia, unspecified Major depressive disorder, single episode, unspecified NSAID long-term use Renal and ureteric calculus (06/2021) Type 2 diabetes, uncontrolled, with neuropathy With A1c 04/03/2024 7.5% Vertigo Vitamin D deficiency Surgical History Surgical History (Updated 04/03/24 @ 21:43 by Misty Clayton DO) History of hysterectomy History of total right knee replacement Family History Family History (Updated 04/03/24 @ 21:44 by Misty Clayton DO) Father Family history of malignant neoplasm Hypertension Carcinoma of colon Family history of diabetes mellitus in first degree relative Mother Hypertension Cerebrovascular accident Sibling Hypertension Diabetes mellitus Cerebrovascular accident Other Family history of cardiovascular disease Social History Social History (Updated 04/03/24 @ 21:46 by Misty Clayton DO) Social History: The patient lives at home with a nephew and his girlfriend. She is a lifelong nonsmoker and does not drink alcohol or use illicit substances. She had 1 son who an accidental . Code status: Full code Surrogate decision maker: Katie Rodriguez (sister) Smoking status: Never smoker Alcohol intake: never Substance use: never Substance use type: does not use Do You Feel Safe in your Home?: Yes Lack of Transportation: No Lack of Food: Never True Current Housing: I Have Housing Concerned About Future H
[2024-04-03 06:45] LABS: Glucose Point of Care 267 mg/dl (65-105)
[2024-04-03] MEDS: PANTOPRAZOLE SODIUM IV 40 MG VIAL IV PUSH ×2 (08:20→20:53)
[2024-04-03] MEDS: SODIUM CHLORIDE 0.9% IV 1,000 ML 70 ML IV CONT (08:20)
[2024-04-03] MEDS: INSULIN GLARGINE (*BKC) 100 UNITS/ML 10 UNITS SUB-Q (08:20)
[2024-04-03 08:42] LABS: Basophils Absolute Auto 0.1 K/mm3 (0.0-0.1); Basophils Percent Auto 0.3 % (0.2-1.2); Hematocrit 27.1 % (37.0-47.0); Hemoglobin 8.6 g/dL (12.0-15.0); Lymphocytes Absolute Auto 1.49 K/mm3 (0.9-3.2); Lymphocytes Percent Auto 4.9 % (18.3-44.2); Mean Corpuscular HGB Conc 31.7 g/dl (32-36); Mean Corpuscular Hemoglobin 28.5 pg (26-34); Mean Corpuscular Volume 89.7 fl (80-100); Mean Platelet Volume 9.9 fl (7.4-10.4); Monocytes Absolute Auto 1.3 K/mm3 (0.1-0.6); Monocytes Percent Auto 4.3 % (2.6-8.5); Neutrophils Absolute Auto 26.1 K/mm3 (1.3-6.7); Neutrophils Percent Auto 86.5 % (45.5-73.1); Platelet Count Result 420 k/mm3 (150-375); Red Blood Count 3.02 M/mm3 (4.2-5.4); Red Cell Distribution Width 15.2 % (11.5-14.5); White Blood Count 30.2 K/mm3 (4.5-10.0)
[2024-04-03 08:43] LABS: Hematocrit 26.6 % (37.0-47.0); Hemoglobin 8.7 g/dL (12.0-15.0)
[2024-04-03 09:43] LABS: Hemoglobin A1C 7.5 % (<5.7)
[2024-04-03] MEDS: ONDANSETRON INJ 4 MG/2 ML VIAL IV PUSH (11:09)
[2024-04-03 12:41] LABS: Glucose Point of Care 180 mg/dl (65-105)
--- NOTE | 2024-04-03 13:50 | PC.NURSE ---
To GI Lab per [keyurer ], IV [ fluids paused by GI nurse]. Report given to [TISHA Quick ].
[2024-04-03] MEDS: LACTATED RINGERS 1,000 ML 150 ML IV CONT (14:02)
[2024-04-03 14:04] LABS: Glucose Point of Care 187 mg/dl (65-105)
[2024-04-03] MEDS: metroNIDAZOLE 500 MG/ISO 100ML 500 MG/100 ML BAG 100 MG IVPB (14:15)
[2024-04-03 14:18] LABS: Hemoglobin 8.9 g/dL (12.0-15.0)
--- NOTE | 2024-04-03 14:22 | WPDANESEPPF ---
Anes - Initial Pre Proc Eval Procedure: Operation Date: 04/03/24 15:45 Proposed Procedures p Esophagogastroduodenoscopy - Pedro Austin MD Date/Time: 04/03/24 14:22 Surgeon: Misty Clayton DO Pre Op Diagnosis: UGIB, Anemia, UTI, Sepsis, ARF, Hyperkalemia Patient Data Age: 78 Gender: F Height: 1.61 m Weight: 74.3 kg Last Vital Signs Temp 97.1 F L 04/03/24 13:55 Pulse 80 04/03/24 13:55 Resp 18 04/03/24 13:55 BP 137/56 L 04/03/24 13:55 Pulse Ox 100 04/03/24 13:55 O2 Del Method Room Air 04/03/24 13:55 Allergies Allergy/AdvReac Type Severity Reaction Status Date / Time morphine AdvReac Unknown Nausea and Verified 04/03/24 13:52 Vomiting Home Medications Medication Instructions Recorded Confirmed Type ferrous sulfate 325 mg (65 mg 325 mg PO DAILY 10/11/19 04/03/24 History iron) tablet iykhzlwe-[id number]-[id number] 8 mg-folic 400 1 tablet PO DAILY 11/25/21 04/03/24 History mcg-K 50 mcg-lutein 300 mcg tablet (Centrum Silver Women) aspirin 81 mg tablet 81 mg PO DAILY 12/16/21 04/03/24 History ascorbic acid (vitamin C) 1,000 mg 1 g PO DAILY 09/26/23 04/03/24 History capsule hydroxyzine HCl 10 mg tablet 10 mg PO QHS PRN insomnia #30 tabs 09/26/23 04/03/24 Rx atorvastatin 40 mg tablet 40 mg PO QHS #90 tabs 11/02/23 04/03/24 Rx lisinopril 40 mg tablet 40 mg PO DAILY #90 tabs 11/02/23 04/03/24 Rx insulin lispro 100 unit/mL 5 unit (0.05 mL) subcut TIDWMEAL 11/30/23 04/03/24 Rx subcutaneous pen (Humalog KwikPen #15 mL (U-100) Insulin) fluoxetine 20 mg capsule 20 mg PO DAILY #90 caps 03/20/24 04/03/24 Rx fluoxetine 40 mg capsule 40 mg PO DAILY #90 caps 04/24/24 05/08/24 Rx amlodipine 10 mg tablet 10 mg PO DAILY #90 tabs 03/27/24 04/03/24 Rx cholecalciferol (vitamin D3) 125 125 mcg PO DAILY 04/03/24 04/03/24 History mcg (5,000 unit) capsule insulin degludec 100 unit/mL (3 15 unit subcut Q12H 04/03/24 04/03/24 History mL) subcutaneous pen (Tresiba FlexTouch U-100 insulin) insulin glargine 100 unit/mL (3 15 unit subcut HS 04/03/24 04/03/24 History mL) subcutaneous pen (Basaglar KwikPen U-100 Insulin) naproxen sodium 220 mg capsule 220 mg PO Q8H PRN Pain 04/03/24 04/03/24 History (Aleve) Laboratory Tests 04/02/24 04/02/24 04/02/24 18:11 18:37 18:49 WBC RBC Hgb Hct MCV MCH MCHC RDW Plt Count MPV Immature Gran % (Auto) Neut % (Auto) Lymph % (Auto) [place] % (Auto) Eos % (Auto) Baso % (Auto) Lymph # (Auto) [place] # (Auto) Eos # (Auto) Baso # (Auto) Abs Immat Gran (auto) Absolute Neuts (auto) Absolute Nucleated RBC Nucleated RBC % PT 16.5 H Seconds (11.1-14.7) INR 1.3 APTT 24.2 Seconds (22.3-36.8) Puncture Site ABG pH ABG pCO2 ABG pO2 ABG PO2/FiO2 Ratio ABG HCO3 ABG O2 Saturation ABG O2 Content ABG Base Excess A-a Gradient Oxyhemoglobin Carboxyhemoglobin Methemoglobin Reduced Hemoglobin Total Hemoglobin O2 Delivery Device O2 Liters/Min FiO2 Sodium 135 L mmol/L (137-145) Potassium 5.8 H mmol/L (3.4-5.0) Chloride 106 mmol/L (98-107) Carbon Dioxide 16 L mmol/L (22-30) Anion Gap 13 H mmol/L (4-12) BUN 82 H D mg/dL (7-17) Creatinine 1.90 H mg/dL (0.7-1.0) Estim Creat Clear Calc 20 ml/min Estimated GFR 26 L (59 - ) Glucose 392 H mg/dL (65-110) POC Capillary Glucose 382 H mg/dl
--- NOTE | 2024-04-03 14:28 | WPDGICN ---
Assessment and Plan Assessment and plan (1) Acute upper GI bleed: Code(s): K92.2 - Gastrointestinal hemorrhage, unspecified Status: Acute Assessment and Plan: will proceed with urgent EGD, it seems that if upper gi source (melena, elevated bun, patient required blood transfusion) possible ulcer iv protonix stop using nsaid's (noted naproxen as home medication) (2) ARF (acute renal failure): Qualifiers: Acute renal failure type: unspecified Qualified Code(s): N17.9 - Acute kidney failure, unspecified Code(s): N17.9 - Acute kidney failure, unspecified Status: Acute Assessment and Plan: on treatment (3) Acute blood loss anemia: Code(s): D62 - Acute posthemorrhagic anemia Status: Acute Assessment and Plan: keep hgb>7 s/p blood tranfusion (4) Sepsis: Qualifiers: Sepsis acute organ dysfunction status: unspecified Sepsis type: sepsis due to unspecified organism Qualified Code(s): A41.9 - Sepsis, unspecified organism Code(s): A41.9 - Sepsis, unspecified organism Status: Acute Assessment and Plan: high wbc, on iv abx, cultures pending (5) Abnormal CT scan, colon: Code(s): R93.3 - Abnormal findings on diagnostic imaging of other parts of digestive tract Status: Acute Assessment and Plan: will also proceed with sigmoidoscopy to assess if mass (CT scan reviewed, ? 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) use of non-steroidal anti-inflammatories (NSAID) Status: Acute GI Consult Note Consult date/time: 04/03/24 14:28 Reason for consult: melena, acute blood loss anemia HPI: Florence Barba is a 78 year old female with past medical history of essential hypertension, type 2 diabetes mellitus, chronic low back pain with naproxen use, cva who presented to the ER with coffee-ground emesis and dark stools.?Patient is a poor historian (she told me that she is confused right now), family earlier talked to other medical staff and related that patient has been feeling ill, weak, and fatigued for the past 2 days. They noted dark tarry stool and also had coffee ground emesis. In the ER rectal exam was performed which demonstrated frankly melenic stools. CT scan reviewed and showed 4.7 cm anal/rectal mass. She presented with acute anemia hgb 5.6 and required blood transfusion repeat 8.5, BUN 80, also renal failure and admitted to ICU, given iv protonix. She is hemodynamically stable now. Review of Systems Constitutional: Constitutional: Reports fatigue and Reports weakness Eyes: Eyes: Denies blurry vision ENT: Reports Normal hearing present Cardiovascular: Cardiovascular: Reports palpitations Respiratory: Respiratory: Reports dyspnea on exertion Gastrointestinal: Gastrointestinal: Reports melena and Reports diarrhea Genitourinary: Genitourinary: Denies dysuria Musculoskeletal: Musculoskeletal: Denies neck pain Integumentary/Breasts: Skin/Breast: Denies rash Neurologic: Reports confusion Psychiatric: Psychiatric: Denies behavioral changes [facility] Past Medical History Medical History (Updated 04/03/24 @ 15:23 by Pedro Austin MD) Abnormal CT scan, colon Acute blood loss anemia Arthritis CVA, old, hemiparesis Essential (primary) hypertension Family history of colon cancer in father History of stroke with residual deficit (~01/2018) left sided weakness Hyperlipidemia, unspecified Leukocytosis Major depressive disorder, single episode, unspecified NSAID long-term use Renal and ureteric calculus (06/2021) Type 2 diabetes, u
--- NOTE | 2024-04-03 15:20 | SUR.OPER ---
EGD START 1459, END 1502 FLEX SIGMOIDOSCOPY START 1507, END 1511
[2024-04-03 15:38] LABS: Glucose Point of Care 190 mg/dl (65-105)
--- NOTE | 2024-04-03 15:53 | PC.NURSE ---
Returned from GI Lab.
--- NOTE | 2024-04-03 15:56 | PM.IMPN ---
Progress Note: A&P Assessment and Plan (1) Acute upper GI bleed: Code(s): K92.2 - Gastrointestinal hemorrhage, unspecified Status: Acute Assessment and Plan: Patient presents with complaints of coffee-ground emesis and dark stools. She had frankly melanotic stools in the emergency room. Hemoglobin 5.6. She was transfused 2 units of packed red blood cells and hemoglobin has climbed to the 8 range. Hemoglobin remaining stable. GI consulted and EGD performed showing reflux esophagitis grade 1, two cratered benign gastric ulcers, and mild patchy gastritis. It was felt that the upper GI bleed will was related to gastric ulcers. Continue Protonix. Avoid NSAIDs. Follow H&H. Transfuse as necessary (2) Acute blood loss anemia: Code(s): D62 - Acute posthemorrhagic anemia Status: Acute Assessment and Plan: Patient with acute blood loss anemia with hemoglobin of 5.6. She received 2 units of packed red blood cells tolerated this well. Serial hemoglobin now in the 8 range and stable. Patient has a normal baseline hemoglobin. Continue to follow and transfuse as necessary. (3) Gastric ulcer: Code(s): K25.9 - Gastric ulcer, unspecified as acute or chronic, without hemorrhage or perforation Status: Acute Assessment and Plan: Patient was found to have 2 benign-appearing gastric ulcers. There were clean based without signs of bleeding so no intervention was performed. Continue PPI therapy. (4) Sepsis: Qualifiers: Sepsis acute organ dysfunction status: unspecified Sepsis type: sepsis due to unspecified organism Qualified Code(s): A41.9 - Sepsis, unspecified organism Code(s): A41.9 - Sepsis, unspecified organism Status: Acute Assessment and Plan: Patient presents with nausea, vomiting with evidence of upper GI bleed. Also noted to have sepsis with acute kidney injury, a lactic acidosis of 3.1 and leukocytosis the 30 K. Urinalysis collected and was consistent with UTI. Urine culture pending. Blood cultures collected on are no growth to date. She was started on broad-spectrum IV antibiotics. Flagyl was added given the evidence of a possible rectal mass. Follow-up on culture results. Narrow antibiotics when able. Monitor WBC (5) ARF (acute renal failure): Qualifiers: Acute renal failure type: unspecified Qualified Code(s): N17.9 - Acute kidney failure, unspecified Code(s): N17.9 - Acute kidney failure, unspecified Status: Acute Assessment and Plan: Patient has a normal baseline creatinine. Creatinine on admission however was 1.9. Suspect acute kidney injury related to the anemia and sepsis. Creatinine is better today 1.7. Urine output is not been calculated. Potassium is better. Metabolic acidosis also improved Monitor urine output. Monitor renal function. Contnue IV fluids (6) Hyperkalemia: Code(s): E87.5 - Hyperkalemia Status: Acute Assessment and Plan: Potassium was 5.8 on admission and this was treated appropriately. Hyperkalemia related to acute kidney injury. Repeat potassium normal now. Continue to follow. (7) UTI (urinary tract infection): Qualifiers: Hematuria presence: without hematuria Urinary tract infection type: acute cystitis Qualified Code(s): N30.00 - Acute cystitis without hematuria Code(s): N39.0 - Urinary tract infection, site not specified Status: Acute Assessment and Plan: UA is consistent with UTI. UCx collected. Antibiotics started. UCx pending. Follow up on UCx results. (8) Abnormal CT scan, colon: Code(s): R93.3 - Abnormal findings on diagnostic imaging of other parts of digestive tract Status: Acute Assessment and Plan: CT of the abdomen and pelvis showed a 4.7 cm anal/rectal mass. Sigmoidoscopy to 25 cm from the anal verge showed normal colonic mucosa and no lesions. It was a poor prep overal
--- NOTE | 2024-04-03 16:04 | SUR.PHASEII ---
DR. Andrews notified of positive H pylori result
[2024-04-03 16:27] LABS: Glucose Point of Care 202 mg/dl (65-105)
[2024-04-03] MEDS: CEFEPIME 2 GM/NS 50 ML 2 GM/50 ML BAG IVPB (20:52)
[2024-04-03] MEDS: AMOXICILLIN 500 MG CAPSULE PO (20:54)
[2024-04-03 21:09] LABS: Glucose Point of Care 144 mg/dl (65-105)
[2024-04-03 21:16] LABS: Hematocrit 23.2 % (37.0-47.0); Hemoglobin 7.6 g/dL (12.0-15.0)
[2024-04-04] VITALS (12 sets, daily range): BP systolic 127–140; BP diastolic 55–77; PULSE 53–77; RESP 13–20; TEMP 32.2–37.1; O2SAT 91–99; BMI 28.9
[2024-04-04] MEDS: SODIUM CHLORIDE 0.9% IV 1,000 ML 70 ML IV CONT ×2 (00:46→15:50)
[2024-04-04 06:42] LABS: Basophils Absolute Auto 0.1 K/mm3 (0.0-0.1); Basophils Percent Auto 0.2 % (0.2-1.2); Hematocrit 26.6 % (37.0-47.0); Hemoglobin 8.4 g/dL (12.0-15.0); Immature Granulocyte Absolute 0.89 K/mm3 (0.00-0.031); Immature Granulocyte Percent A 4.2 % (0-0.5); Lymphocytes Absolute Auto 1.54 K/mm3 (0.9-3.2); Lymphocytes Percent Auto 7.3 % (18.3-44.2); Mean Corpuscular HGB Conc 31.6 g/dl (32-36); Mean Corpuscular Hemoglobin 28.7 pg (26-34); Mean Corpuscular Volume 90.8 fl (80-100); Mean Platelet Volume 9.2 fl (7.4-10.4); Monocytes Absolute Auto 1.1 K/mm3 (0.1-0.6); Neutrophils Absolute Auto 17.7 K/mm3 (1.3-6.7); Neutrophils Percent Auto 83.3 % (45.5-73.1); Nucleated Red Blood Cells Perc 0.1 % (0.0-0.2); Platelet Count Result 377 k/mm3 (150-375); Red Blood Count 2.93 M/mm3 (4.2-5.4); Red Cell Distribution Width 15.6 % (11.5-14.5); White Blood Count 21.2 K/mm3 (4.5-10.0)
[2024-04-04 06:57] LABS: Alanine Aminotransferase 25 U/L (6-35); Albumin Level 3.4 g/dL (3.5-5.1); Alkaline Phosphatase 69 U/L (38-126); Anion Gap 5 mmol/L (4-12); Aspartate Amino Transferase 38 U/L (14-36); Bilirubin,Total 0.5 mg/dL (0.2-1.3); Blood Urea Nitrogen 36 mg/dL (7-17); Calcium 8.9 mg/dL (8.4-10.2); Carbon Dioxide 27 mmol/L (22-30); Chloride 105 mmol/L (98-107); Estimated CRCL calculation 32 ml/min; Estimated Glomerular Filt Rate 40; Glucose 124 mg/dL (65-110); Potassium 4.4 mmol/L (3.4-5.0); Sodium 137 mmol/L (137-145)
[2024-04-04 07:53] LABS: Glucose Point of Care 108 mg/dl (65-105)
[2024-04-04] MEDS: INSULIN GLARGINE (*BKC) 100 UNITS/ML 10 UNITS SUB-Q (08:32)
[2024-04-04] MEDS: FLUoxetine HCL 20 MG CAPSULE 60 MG PO (08:33)
[2024-04-04] MEDS: ASCORBIC ACID 500 MG TABLET PO (08:34)
[2024-04-04] MEDS: FERROUS SULFATE 325 MG TABLET DR BY MOUTH (08:34)
[2024-04-04] MEDS: THERAPEUTIC MULTIVITAMINS/MINERALS TAB (*BKC) 1 TABLET PO (08:34)
[2024-04-04] MEDS: AMOXICILLIN 500 MG CAPSULE PO ×2 (08:35→20:08)
[2024-04-04] MEDS: CHOLECALCIFEROL 1,000 UNITS TABLET 5000 UNITS PO (08:35)
[2024-04-04] MEDS: PANTOPRAZOLE SODIUM IV 40 MG VIAL IV PUSH ×2 (08:35→20:08)
[2024-04-04 11:29] LABS: Glucose Point of Care 181 mg/dl (65-105)
--- NOTE | 2024-04-04 12:35 | WPDANESPN ---
Anes - Prog Note Post-Op Date/Time: 04/04/24 12:35 Cardiovascular status: other (anemia) Respiratory status: normal Airway patency: baseline Mental status: baseline Post-Op hydration status: normal Vital Signs: Last Vital Signs Temp 97.4 F L 04/04/24 12:00 Pulse 65 04/04/24 12:00 Resp 13 04/04/24 12:00 BP 127/59 L 04/04/24 12:00 Pulse Ox 99 04/04/24 12:00 O2 Del Method Room Air 04/04/24 12:00 Pain Score (VAS): 0/10 I/O: Intake & Output 04/03/24 04/04/24 04/04/24 23:59 07:59 15:59 Intake Total 840 1465 240 Output Total 1000 800 Balance -160 665 240 Laboratory Tests 04/04/24 06:38 04/04/24 06:38 04/03/24 04/03/24 04/03/24 12:01 14:00 14:09 WBC RBC Hgb 8.9 L Hct 28.0 L MCV MCH MCHC RDW Plt Count MPV Immature Gran % (Auto) Neut % (Auto) Lymph % (Auto) [place] % (Auto) Eos % (Auto) Baso % (Auto) Lymph # (Auto) [place] # (Auto) Eos # (Auto) Baso # (Auto) Abs Immat Gran (auto) Absolute Neuts (auto) Absolute Nucleated RBC Nucleated RBC % Sodium Potassium Chloride Carbon Dioxide Anion Gap BUN Creatinine Estim Creat Clear Calc Estimated GFR Glucose POC Capillary Glucose 180 H 187 H Calcium Magnesium Total Bilirubin AST ALT Alkaline Phosphatase Total Protein Albumin 04/03/24 04/03/24 04/03/24 15:34 16:08 20:36 WBC RBC Hgb 7.6 L Hct 23.2 L MCV MCH MCHC RDW Plt Count MPV Immature Gran % (Auto) Neut % (Auto) Lymph % (Auto) [place] % (Auto) Eos % (Auto) Baso % (Auto) Lymph # (Auto) [place] # (Auto) Eos # (Auto) Baso # (Auto) Abs Immat Gran (auto) Absolute Neuts (auto) Absolute Nucleated RBC Nucleated RBC % Sodium Potassium Chloride Carbon Dioxide Anion Gap BUN Creatinine Estim Creat Clear Calc Estimated GFR Glucose POC Capillary Glucose 190 H 202 H Calcium Magnesium Total Bilirubin AST ALT Alkaline Phosphatase Total Protein Albumin 04/03/24 04/04/24 04/04/24 21:05 06:38 07:27 WBC 21.2 H RBC 2.93 L Hgb 8.4 L Hct 26.6 L MCV 90.8 MCH 28.7 MCHC 31.6 L RDW 15.6 H Plt Count 377 H MPV 9.2 Immature Gran % (Auto) 4.2 H Neut % (Auto) 83.3 H Lymph % (Auto) 7.3 L [place] % (Auto) 5.0 Eos % (Auto) 0.0 Baso % (Auto) 0.2 Lymph # (Auto) 1.54 [place] # (Auto) 1.1 H Eos # (Auto) 0.0 Baso # (Auto) 0.1 Abs Immat Gran (auto) 0.89 H Absolute Neuts (auto) 17.7 H Absolute Nucleated RBC 0.020 H Nucleated RBC % 0.1 Sodium 137 Potassium 4.4 Chloride 105 Carbon Dioxide 27 Anion Gap 5 BUN 36 H D Creatinine 1.30 H Estim Creat Clear Calc 32 Estimated GFR 40 L Glucose 124 H POC Capillary Glucose 144 H 108 H Calcium 8.9 Magnesium 2.0 Total Bilirubin 0.5 AST 38 H ALT 25 Alkaline Phosphatase 69 Total Protein 7.0 Albumin 3.4 L 04/04/24 11:13 WBC RBC Hgb Hct MCV MCH MCHC RDW Plt Count MPV Immature Gran % (Auto) Neut % (Auto) Lymph % (Auto) [place] % (Auto) Eos % (Auto) Baso % (Auto) Lymph # (Auto) [place] # (Auto) Eos # (Auto) Baso # (Auto) Abs Immat Gran (auto) Absolute Neuts (auto) Absolute Nucleated RBC Nucleated RBC % Sodium Potassium Chloride Carbon Dioxide Anion Gap BUN Creatinine Estim Creat Clear Calc Estimated GFR Glucose POC Capillary Glucose 181 H Calcium Magnesium Total Bilirubin AST ALT Alkaline Phosphatase Total Protein Albumin Microbiology 04/02/24 19:29 Urine Clean Catch Urine Culture - Preliminary Gram negative bacilli isolated 04/02/24 20:43 Blood Blood Culture - Preliminary 04/02/24 20:43 Blood Blood Culture - Preliminary Post-proced
--- NOTE | 2024-04-04 13:41 | PM.IMPN ---
Progress Note: A&P Assessment and Plan (1) Acute upper GI bleed: Code(s): K92.2 - Gastrointestinal hemorrhage, unspecified Status: Acute Assessment and Plan: Patient presents with complaints of coffee-ground emesis and dark stools. She had frankly melanotic stools in the emergency room. Hemoglobin 5.6. She was transfused 2 units of packed red blood cells and hemoglobin has climbed to the 8 range. Hemoglobin remaining stable. GI consulted and EGD performed showing reflux esophagitis grade 1, two cratered benign gastric ulcers, and mild patchy gastritis. It was felt that the upper GI bleed was related to gastric ulcers. Continue Protonix. Avoid NSAIDs. Follow H&H. Transfuse as necessary (2) Acute blood loss anemia: Code(s): D62 - Acute posthemorrhagic anemia Status: Acute Assessment and Plan: Patient with acute blood loss anemia with hemoglobin of 5.6. She received 2 units of packed red blood cells tolerated this well. Serial hemoglobin now in the 8 range and stable. Patient has a normal baseline hemoglobin. Continue to follow and transfuse as necessary. (3) Gastric ulcer: Code(s): K25.9 - Gastric ulcer, unspecified as acute or chronic, without hemorrhage or perforation Status: Acute Assessment and Plan: Patient was found to have 2 benign-appearing gastric ulcers. There were clean based without signs of bleeding so no intervention was performed. Patient started on Amox and Biaxin for Hpylori Continue PPI therapy. (4) Helicobacter pylori gastritis: Code(s): K29.70 - Gastritis, unspecified, without bleeding; B96.81 - Helicobacter pylori [H. pylori] as the cause of diseases classified elsewhere Status: Acute Assessment and Plan: As above (5) Sepsis: Qualifiers: Sepsis acute organ dysfunction status: unspecified Sepsis type: sepsis due to unspecified organism Qualified Code(s): A41.9 - Sepsis, unspecified organism Code(s): A41.9 - Sepsis, unspecified organism Status: Acute Assessment and Plan: Patient presents with nausea, vomiting with evidence of upper GI bleed. Also noted to have sepsis with acute kidney injury, a lactic acidosis of 3.1 and leukocytosis the 30 K. Urinalysis collected and was consistent with UTI. Urine culture growing GNB. Blood cultures no growth to date. She was started on broad-spectrum IV antibiotics. Flagyl was added given the evidence of a possible rectal mass but now stopped (see below). WBC trending down Follow-up on culture results. Narrow antibiotics when able. Monitor WBC (6) ARF (acute renal failure): Qualifiers: Acute renal failure type: unspecified Qualified Code(s): N17.9 - Acute kidney failure, unspecified Code(s): N17.9 - Acute kidney failure, unspecified Status: Acute Assessment and Plan: Patient has a normal baseline creatinine. Creatinine on admission however was 1.9. Suspect acute kidney injury related to the anemia and sepsis. Creatinine is better today 1.3. Urine output is not been calculated. Potassium is normal. Metabolic acidosis resolved Monitor urine output. Monitor renal function. Stop IV fluids (7) Hyperkalemia: Code(s): E87.5 - Hyperkalemia Status: Acute Assessment and Plan: Potassium was 5.8 on admission and this was treated appropriately. Hyperkalemia related to acute kidney injury. Repeat potassium normal now. Continue to follow. (8) UTI (urinary tract infection): Qualifiers: Hematuria presence: without hematuria Urinary tract infection type: acute cystitis Qualified Code(s): N30.00 - Acute cystitis without hematuria Code(s): N39.0 - Urinary tract infection, site not specified Status: Acute Assessment and Plan: UA is consistent with UTI. UCx collected. Antibiotics started. UCx growing GNB. Follow up on UCx results. (9) Abnormal CT scan, co
--- NOTE | 2024-04-04 15:14 | WPDGIPROGNO ---
Progress Note: A&P Assessment and Plan (1) Gastric ulcer: Code(s): K25.9 - Gastric ulcer, unspecified as acute or chronic, without hemorrhage or perforation Status: Acute Assessment and Plan: H pylori positive started on treatment no more bleeding continue with ppi (2) Helicobacter pylori gastritis: Code(s): K29.70 - Gastritis, unspecified, without bleeding; B96.81 - Helicobacter pylori [H. 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 non-steroidal anti-inflammatories (NSAID) Status: Acute Assessment and Plan: nsaid's also discontinued (5) Leukocytosis: Code(s): D72.829 - Elevated white blood cell count, unspecified Status: Acute Assessment and Plan: trending down uti on treatment (6) Sepsis: Qualifiers: Sepsis acute organ dysfunction status: unspecified Sepsis type: sepsis due to unspecified organism Qualified Code(s): A41.9 - Sepsis, unspecified organism Code(s): A41.9 - Sepsis, unspecified organism Status: Acute (7) UTI (urinary tract infection): Qualifiers: Hematuria presence: without hematuria Urinary tract infection type: acute cystitis Qualified Code(s): N30.00 - Acute cystitis without hematuria Code(s): N39.0 - Urinary tract infection, site not specified Status: Acute (8) ARF (acute renal failure): Qualifiers: Acute renal failure type: unspecified Qualified Code(s): N17.9 - Acute kidney failure, unspecified Code(s): N17.9 - Acute kidney failure, unspecified Status: Acute Assessment and Plan: improving (9) Type 2 diabetes mellitus with hyperglycemia, with long-term current use of insulin: Code(s): E11.65 - Type 2 diabetes mellitus with hyperglycemia; Z79.4 - penitentiary (current) use of insulin Status: Acute Subjective Date/time seen: 04/04/24 15:14 Interval history: no more bleeding, doing ok egd yesterday with gastric ulcers, + H pylori sigmoidoscopy without rectal mass Review of Systems Review of Systems: All systems reviewed & are unremarkable except as noted in HPI and below Exam Const: General: comfortable Other: pale HENMT: Face/Nose/Sinus: Normal nares present Eyes: Sclera: sclerae normal Neck: Neck: supple Resp: Effort & Inspection: normal respiratory effort Cardio: Rate: regular rate GI: GI Palp: Yes Soft to palpation and No Tenderness to palpation present (GI) Auscultation: normal bowel sounds Skin: General skin exam: no rashes or lesions noted Other: pallor Neuro: Speech: normal speech Other: awake and alert, residual weakness left side Extrem: General: normal to inspection Psych: Other: slightly confused Objective Data Vital Signs Vital Signs: Vital Signs - 24 hr 04/03/24 15:15 04/03/24 15:25 04/03/24 15:35 Temperature Pulse Rate 68 66 72 Respiratory Rate 15 16 16 Blood Pressure 87/35 L 129/49 L 143/56 H Pulse Oximetry 100 100 99 Oxygen Delivery Room Air Room Air Room Air 04/03/24 16:00 04/03/24 16:00 04/03/24 16:00 Temperature 97.5 F L Pulse Rate 72 81 Respiratory Rate 15 Blood Pressure 137/79 Pulse Oximetry 97 Oxygen Delivery Room Air 04/03/24 17:51 04/03/24 20:00 04/03/24 20:00 Temperature 97.9 F Pulse Rate 72 68 68 Respiratory Rate 20 Blood Pressure 114/55 L Pulse Oximetry 95 Oxygen Delivery 04/03/24 20:00 04/03/24 22:00 04/04/24 00:00 Temperature Pulse Rate 69 61 Respiratory Rate Blood Pressure Pulse Oximetry Oxygen Delivery Room Air 04/04/24 00:00 04/04/24 00:
[2024-04-04 16:11] LABS: Glucose Point of Care 118 mg/dl (65-105)
[2024-04-04] MEDS: ATORVASTATIN 40 MG TABLET PO (20:08)
[2024-04-04] MEDS: CEFEPIME 2 GM/NS 50 ML 2 GM/50 ML BAG IVPB (20:09)
[2024-04-05 03:52] LABS: Basophils Absolute Auto 0.1 K/mm3 (0.0-0.1); Basophils Percent Auto 0.5 % (0.2-1.2); Eosinophils Percent Auto 0.3 % (0-4.4); Hematocrit 26.7 % (37.0-47.0); Hemoglobin 8.2 g/dL (12.0-15.0); Immature Granulocyte Absolute 0.69 K/mm3 (0.00-0.031); Immature Granulocyte Percent A 5.3 % (0-0.5); Lymphocytes Absolute Auto 1.62 K/mm3 (0.9-3.2); Lymphocytes Percent Auto 12.5 % (18.3-44.2); Mean Corpuscular HGB Conc 30.7 g/dl (32-36); Mean Corpuscular Hemoglobin 28.5 pg (26-34); Mean Corpuscular Volume 92.7 fl (80-100); Mean Platelet Volume 9.4 fl (7.4-10.4); Monocytes Absolute Auto 0.8 K/mm3 (0.1-0.6); Monocytes Percent Auto 6.2 % (2.6-8.5); Neutrophils Absolute Auto 9.8 K/mm3 (1.3-6.7); Neutrophils Percent Auto 75.2 % (45.5-73.1); Platelet Count Result 368 k/mm3 (150-375); Red Blood Count 2.88 M/mm3 (4.2-5.4); Red Cell Distribution Width 15.7 % (11.5-14.5)
[2024-04-05 04:05] LABS: Albumin Level 3.1 g/dL (3.5-5.1); Anion Gap 4 mmol/L (4-12); Blood Urea Nitrogen 26 mg/dL (7-17); Carbon Dioxide 27 mmol/L (22-30); Chloride 110 mmol/L (98-107); Estimated CRCL calculation 32 ml/min; Estimated Glomerular Filt Rate 40; Glucose 81 mg/dL (65-110); Phosphorus 2.5 mg/dL (2.5-4.5); Potassium 4.1 mmol/L (3.4-5.0); Sodium 141 mmol/L (137-145)
[2024-04-05 05:00] VITALS: BP 120/67; PULSE 78; RESP 16; TEMP 36.6; O2SAT 97
--- NOTE | 2024-04-05 06:31 | PC.NURSE ---
Patient transferred from ICU1 this AM at 0600. Report received from Karsten GILES.
[2024-04-05 07:31] LABS: Glucose Point of Care 78 mg/dl (65-105)
[2024-04-05 08:00] VITALS: BP 137/49; PULSE 62; RESP 18; TEMP 36; O2SAT 99
[2024-04-05] MEDS: PANTOPRAZOLE SODIUM IV 40 MG VIAL IV PUSH ×2 (09:31→21:01)
[2024-04-05] MEDS: THERAPEUTIC MULTIVITAMINS/MINERALS TAB (*BKC) 1 TABLET PO (09:31)
[2024-04-05] MEDS: CHOLECALCIFEROL 1,000 UNITS TABLET 5000 UNITS PO (09:31)
[2024-04-05] MEDS: FLUoxetine HCL 20 MG CAPSULE 60 MG PO (09:31)
[2024-04-05] MEDS: FERROUS SULFATE 325 MG TABLET DR BY MOUTH (09:32)
[2024-04-05] MEDS: AMOXICILLIN 500 MG CAPSULE PO ×2 (09:32→21:00)
[2024-04-05] MEDS: INSULIN GLARGINE (*BKC) 100 UNITS/ML 7 UNITS SUB-Q (10:31)
[2024-04-05 11:11] LABS: Glucose Point of Care 164 mg/dl (65-105)
[2024-04-05] MEDS: ASCORBIC ACID 500 MG TABLET 1000 MG PO (12:23)
--- NOTE | 2024-04-05 15:45 | WPDGIPROGNO ---
Progress Note: A&P Assessment and Plan (1) Gastric ulcer: Code(s): K25.9 - Gastric ulcer, unspecified as acute or chronic, without hemorrhage or perforation Status: Acute Assessment and Plan: H pylori positive started on treatment no more bleeding continue with ppi (2) Helicobacter pylori gastritis: Code(s): K29.70 - Gastritis, unspecified, without bleeding; B96.81 - Helicobacter pylori [H. 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) use of non-steroidal anti-inflammatories (NSAID) Status: Acute Assessment and Plan: nsaid's also discontinued (5) Leukocytosis: Code(s): D72.829 - Elevated white blood cell count, unspecified Status: Acute Assessment and Plan: trending down uti on treatment (6) Sepsis: Qualifiers: Sepsis acute organ dysfunction status: unspecified Sepsis type: sepsis due to unspecified organism Qualified Code(s): A41.9 - Sepsis, unspecified organism Code(s): A41.9 - Sepsis, unspecified organism Status: Acute Assessment and Plan: resolved (7) UTI (urinary tract infection): Qualifiers: Hematuria presence: without hematuria Urinary tract infection type: acute cystitis Qualified Code(s): N30.00 - Acute cystitis without hematuria Code(s): N39.0 - Urinary tract infection, site not specified Status: Acute Subjective Date/time seen: 04/05/24 15:45 Interval history: doing better, she is now in regular floor no more signs of gib Review of Systems Review of Systems: All systems reviewed & are unremarkable except as noted in HPI and below Exam Const: General: comfortable Other: pale HENMT: Face/Nose/Sinus: Normal nares present Eyes: Sclera: sclerae normal Neck: Neck: supple Resp: Effort & Inspection: normal respiratory effort Cardio: Rate: regular rate GI: GI Palp: Yes Soft to palpation and No Tenderness to palpation present (GI) Auscultation: normal bowel sounds Skin: General skin exam: no rashes or lesions noted Neuro: Speech: normal speech Other: awake and alert, residual weakness left side Extrem: General: normal to inspection Psych: Other: slightly confused Objective Data Vital Signs Vital Signs: Vital Signs - 24 hr 04/04/24 16:00 04/04/24 19:48 04/04/24 23:54 Temperature 98.7 F Pulse Rate 60 60 68 Respiratory Rate 13 20 Blood Pressure 136/55 L Pulse Oximetry 97 97 Oxygen Delivery Room Air 04/04/24 21:20 04/05/24 05:00 04/05/24 08:00 Temperature 97.8 F 96.8 F L Pulse Rate 78 62 Respiratory Rate 16 18 Blood Pressure 120/67 137/49 L Pulse Oximetry 97 97 99 Oxygen Delivery Room Air 04/05/24 08:00 Temperature Pulse Rate Respiratory Rate Blood Pressure Pulse Oximetry Oxygen Delivery Room Air Intake/Output Intake/Output: Intake & Output 04/02/24 04/03/24 04/04/24 04/05/24 23:59 23:59 23:59 23:59 Intake Total 2700 2175 3804 200 Output Total 300 1000 2600 1000 Balance 2400 1175 1204 -800 Meds/Results Medications: Active Medications Generic Name Dose Route Start Last Admin Trade Name Freq PRN Reason Stop Dose Admin Acetaminophen 650 mg 04/02/24 21:25 Acetaminophen 325 Mg Tablet PO Q4H PRN Mild Pain (1-3) or Fever Amoxicillin 500 mg 04/03/24 21:00 04/05/24 09:32 Amoxicillin 500 Mg Capsule PO 04/17/24 20:59 500 mg Q12HR RYAN Administration Ascorbic Acid 1,000 mg 04/05/24 09:00 04/05/24 12:23 Ascorbic Acid 500 Mg Tablet PO 1,000 mg QAM RYAN Administration Atorvastatin Calcium 40 mg 04/04
[2024-04-05 16:00] VITALS: BP 140/64; PULSE 66; RESP 17; TEMP 36.6; O2SAT 98
--- NOTE | 2024-04-05 16:07 | PM.DS ---
DS: Admitting Diagnosis Discharge Date 04/05/24 Admitting Diagnosis Coffee-ground emesis and dark stools DS: Discharge Diagnosis Discharge Diagnosis (1) Acute upper GI bleed: Code(s): K92.2 - Gastrointestinal hemorrhage, unspecified Status: Acute (2) Acute blood loss anemia: Code(s): D62 - Acute posthemorrhagic anemia Status: Acute (3) Gastric ulcer: Code(s): K25.9 - Gastric ulcer, unspecified as acute or chronic, without hemorrhage or perforation Status: Acute (4) Helicobacter pylori gastritis: Code(s): K29.70 - Gastritis, unspecified, without bleeding; B96.81 - Helicobacter pylori [H. pylori] as the cause of diseases classified elsewhere Status: Acute (5) Sepsis: Qualifiers: Sepsis acute organ dysfunction status: unspecified Sepsis type: sepsis due to unspecified organism Qualified Code(s): A41.9 - Sepsis, unspecified organism Code(s): A41.9 - Sepsis, unspecified organism Status: Acute (6) ARF (acute renal failure): Qualifiers: Acute renal failure type: unspecified Qualified Code(s): N17.9 - Acute kidney failure, unspecified Code(s): N17.9 - Acute kidney failure, unspecified Status: Acute (7) Hyperkalemia: Code(s): E87.5 - Hyperkalemia Status: Acute (8) UTI (urinary tract infection): Qualifiers: Hematuria presence: without hematuria Urinary tract infection type: acute cystitis Qualified Code(s): N30.00 - Acute cystitis without hematuria Code(s): N39.0 - Urinary tract infection, site not specified Status: Acute (9) Abnormal CT scan, colon: Code(s): R93.3 - Abnormal findings on diagnostic imaging of other parts of digestive tract Status: Acute (10) NSAID long-term use: Code(s): Z79.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 In the ER rectal exam with frankly melenic stools. Please see H&P for details. Hospital Course: Patient presents with complaints of coffee-ground emesis and dark stools.? She had frankly melanotic stools in the emergency room.? Hemoglobin 5.6.? She was transfused 2 units of packed red blood cells and hemoglobin has climbed to the 8 range.? Hemoglobin remaining stable. GI was consulted and EGD performed showing reflux esophagitis grade 1, two cratered benign gastric ulcers, and mild patchy gastritis. There were clean based without signs of bleeding so no intervention was performed.?It was felt that the upper GI bleed was related to gastric ulcers. Patient also with Helicobacter pylori gastritis and started on Amoxicillin and Biaxin. She was started on Protonix and this was continued. Patient presented with nausea, vomiting with evidence of upper GI bleed.? Also noted to have sepsis with acute kidney injury, a lactic acidosis of 3.1 and leukocytosis the 30K. Urinalysis collected and was consistent with UTI.?Urine culture growing EColi that was faye-sensitive.? Blood cultures no growth to date.? She was started on broad-spectrum IV antibiotics and Flagyl was added given the evidence of a possible rectal mass but now stopped (see below). WBC trended down. Patient has a normal baseline creatinine.? Creatinine on admission however was 1.9.? Suspect acute kidney injury related to the anemia and sepsis. Creatinine is better today 1.3.? Potassium was 5.8 on admission and this was treated appropriately.? Hyperkalemia related to acute kidney injury. Metabolic acidosis resolved. CT of the a
[2024-04-05 16:28] LABS: Glucose Point of Care 151 mg/dl (65-105)
[2024-04-05] MEDS: ATORVASTATIN 40 MG TABLET PO (21:00)
[2024-04-05] MEDS: CEFEPIME 2 GM/NS 50 ML 2 GM/50 ML BAG IVPB (21:00)
== END 2024-04-05 16:40 | DRG 871 ==
LOC: ANHED 21:28 → ANHIMU 22:10 → ANHICU 04-03 05:18 → ANH3MEDSUR 04-05 06:01
PROVIDERS: Internal Medicine Gastroenterology; Student in an Organized Health Care Education/Training Program; Admitting Provider Internal Medicine; Emergency Provider Physician Assistant; PCP Family Medicine; Visit Provider Internal Medicine
PROC: 0DJ08ZZ Inspection of Upper Intestinal Tract, Via Natural or Artificial Opening Endoscopic (ICD-10-PCS; CPT 43235; principal; 2024-04-03 15:45)
PROC: 0DJD8ZZ Inspection of Lower Intestinal Tract, Via Natural or Artificial Opening Endoscopic (ICD-10-PCS; CPT 45330; 2024-04-03 15:45)
DX: A41.9 Sepsis, unspecified organism (principal); K25.4 Chronic or unspecified gastric ulcer with hemorrhage; D62 Acute posthemorrhagic anemia; I69.354 Hemiplegia and hemiparesis following cerebral infarction affecting left non-dominant side; N17.9 Acute kidney failure, unspecified; N39.0 Urinary tract infection, site not specified; K21.00 Gastro-esophageal reflux disease with esophagitis, without bleeding; K29.60 Other gastritis without bleeding; K64.8 Other hemorrhoids; I10 Essential (primary) hypertension; E78.5 Hyperlipidemia, unspecified; E55.9 Vitamin D deficiency, unspecified; E11.65 Type 2 diabetes mellitus with hyperglycemia; E11.40 Type 2 diabetes mellitus with diabetic neuropathy, unspecified; E87.5 Hyperkalemia; B96.20 Unspecified Escherichia coli [E. coli] as the cause of diseases classified elsewhere; B96.81 Helicobacter pylori [H. pylori] as the cause of diseases classified elsewhere; M19.90 Unspecified osteoarthritis, unspecified site; M54.50 Low back pain, unspecified; G89.29 Other chronic pain; F32.9 Major depressive disorder, single episode, unspecified; Z96.651 Presence of right artificial knee joint; Z79.4 Long term (current) use of insulin; Z79.82 Long term (current) use of aspirin; Z79.1 Long term (current) use of non-steroidal anti-inflammatories (NSAID); Z87.442 Personal history of urinary calculi; Z80.0 Family history of malignant neoplasm of digestive organs
CPT/HCPCS: 36415; 36430; 36600; 71045; 74176; 80048; 80053; 80069; 81001; 82010; 82375; 82805; 82948; 83036; 83050; 83605; 83735; 84145; 84484; 85014; 85018; 85025; 85610; 85730; 86140; 86850; 86900; 86901; 86920; 87040; 87077; 87081; 87086; 87088; 87186; 88305; 88342; 93005; 94762; 96361; 96365; 96367; 96375; 97110; 97161; 97166; 97530; 97535; 99285; A9270; C9113; J0612; J0692; J1815; J1836; J2405; J2704; J3370; J7030; J7050; J7120; P9016

== ENCOUNTER 2024-05-08 15:05 | Outpatient (CLI) | payer MEDICARE, SELFPAY ==
--- NOTE | ~2024-05-08 | US_ITS ---
EXAMINATION: US venous doppler [facility] DATE: 05/08/2024 15:57 INDICATION: Left lower limb pain TECHNIQUE: Grayscale ultrasound images without and with compression and Doppler ultrasound images of the left lower extremity veins were obtained. COMPARISON: None. FINDINGS: The visualized portions of left common femoral vein, profunda (deep) femoral vein, femoral vein, popl iteal vein, peroneal veins, posterior tibial veins and greater saphenous vein outflow are patent. IMPRESSION: 1. No deep venous thrombosis in the left lower limb. Reviewed, dictated and finalized at location A.
[2024-05-08 16:26] LABS: Hematocrit 36.8 % (37.0-47.0); Hemoglobin 12.1 g/dL (12.0-15.0); Mean Corpuscular HGB Conc 32.9 g/dl (32-36); Mean Corpuscular Hemoglobin 29.9 pg (26-34); Mean Corpuscular Volume 90.9 fl (80-100); Mean Platelet Volume 9.1 fl (7.4-10.4); Platelet Count Result 290 k/mm3 (150-375); Red Blood Count 4.05 M/mm3 (4.2-5.4); Red Cell Distribution Width 14.3 % (11.5-14.5); White Blood Count 10.6 K/mm3 (4.5-10.0)
[2024-05-08 16:37] LABS: Alanine Aminotransferase 22 U/L (6-35); Albumin Level 4.5 g/dL (3.5-5.1); Alkaline Phosphatase 80 U/L (38-126); Anion Gap 9 mmol/L (4-12); Aspartate Amino Transferase 46 U/L (14-36); Bilirubin,Total 0.7 mg/dL (0.2-1.3); Blood Urea Nitrogen 24 mg/dL (7-17); Calcium 9.7 mg/dL (8.4-10.2); Carbon Dioxide 26 mmol/L (22-30); Chloride 104 mmol/L (98-107); Estimated Glomerular Filt Rate 43; Glucose 149 mg/dL (65-110); Potassium 4.7 mmol/L (3.4-5.0); Sodium 139 mmol/L (137-145)
== END 2024-05-08 15:06 | disposition home or self-care (01) ==
LOC: ANHIMG 15:08
PROVIDERS: PCP Family Medicine; Visit Provider Nurse Practitioner
DX: D62 Acute posthemorrhagic anemia (principal); E08.40 Diabetes mellitus due to underlying condition with diabetic neuropathy, unspecified; M79.605 Pain in left leg
CPT/HCPCS: 36415; 80053; 85027; 93971

== ENCOUNTER 2024-09-05 09:38 | Outpatient (CLI) | payer MEDICARE, SELFPAY ==
[2024-09-05 14:51] LABS: Basophils Percent Auto 0.3 % (0.2-1.2); Eosinophils Absolute Auto 0.1 K/mm3 (0-0.3); Eosinophils Percent Auto 1.3 % (0-4.4); Hematocrit 41.8 % (37.0-47.0); Hemoglobin 13.2 g/dL (12.0-15.0); Immature Granulocyte Absolute 0.04 K/mm3 (0.00-0.031); Immature Granulocyte Percent A 0.4 % (0-0.5); Lymphocytes Absolute Auto 1.56 K/mm3 (0.9-3.2); Lymphocytes Percent Auto 15.6 % (18.3-44.2); Mean Corpuscular HGB Conc 31.6 g/dl (32-36); Mean Corpuscular Hemoglobin 28.9 pg (26-34); Mean Corpuscular Volume 91.5 fl (80-100); Mean Platelet Volume 10.3 fl (7.4-10.4); Monocytes Absolute Auto 0.5 K/mm3 (0.1-0.6); Monocytes Percent Auto 5.1 % (2.6-8.5); Neutrophils Absolute Auto 7.7 K/mm3 (1.3-6.7); Neutrophils Percent Auto 77.3 % (45.5-73.1); Platelet Count Result 341 k/mm3 (150-375); Red Blood Count 4.57 M/mm3 (4.2-5.4); Red Cell Distribution Width 15.3 % (11.5-14.5)
[2024-09-05 14:58] LABS: Hemoglobin A1C 7.1 % (<5.7)
[2024-09-05 17:51] LABS: Alanine Aminotransferase 29 U/L (6-35); Albumin Level 4.7 g/dL (3.5-5.1); Alkaline Phosphatase 93 U/L (38-126); Anion Gap 10 mmol/L (4-12); Aspartate Amino Transferase 66 U/L (14-36); Bilirubin,Total 0.4 mg/dL (0.2-1.3); Blood Urea Nitrogen 41 mg/dL (7-17); Calcium 9.7 mg/dL (8.4-10.2); Carbon Dioxide 25 mmol/L (22-30); Chloride 105 mmol/L (98-107); Cholesterol 161 mg/dL (0-200); Estimated Glomerular Filt Rate 48; Glucose 116 mg/dL (65-110); HDL Direct 48 mg/dL; Potassium 4.5 mmol/L (3.4-5.0); Sodium 140 mmol/L (137-145); Triglycerides 87 mg/dL (<150)
[2024-09-05 18:02] LABS: LDL Cholesterol Direct 75 mg/dL
[2024-09-05 19:46] LABS: Vitamin D 25 Hydroxy 47.5 ng/mL
[2024-09-05 22:49] LABS: Total Triiodothyronine (T3) 1.52 NG/ML (0.97-1.69)
== END 2024-09-05 09:39 | disposition home or self-care (01) ==
LOC: ANHGOSHLAB 09:40
PROVIDERS: PCP Family Medicine; Visit Provider Family Medicine
DX: E78.5 Hyperlipidemia, unspecified (principal); E11.9 Type 2 diabetes mellitus without complications; E53.8 Deficiency of other specified B group vitamins; E55.9 Vitamin D deficiency, unspecified; I10 Essential (primary) hypertension; R19.8 Other specified symptoms and signs involving the digestive system and abdomen
CPT/HCPCS: 36415; 80053; 80061; 82306; 82607; 83036; 84439; 84443; 84480; 85025

== ENCOUNTER 2024-10-09 07:50 | Inpatient (IN) | payer MEDICARE, SELFPAY ==
[2024-10-09] VITALS (15 sets, daily range): BP systolic 88–150; BP diastolic 43–71; PULSE 82–96; RESP 22–36; TEMP 36.4–36.8; O2SAT 94–100; BMI 27.1
--- NOTE | ~2024-10-09 | XR_ITS ---
INTRAOPERATIVE FLUOROSCOPY: CLINICAL HISTORY: 79 years old Female; BILATERAL RETROGRADES PROCEDURE COMMENTS: Limited intraoperative fluoroscopy of the lower abdomen and pelvis was performed. CUMULATIVE DOSE: 14 mGy FLUOROSCOPY TIME: 38 seconds FINDINGS/IMPRESSION: Intraoperative fluoroscopic views demonstrate contrast opacifying the bilateral ureters into the bila teral kidneys. No contrast is visualized distending the bladder. Please refer to operative note for further details. Reviewed, dictated and finalized at location A. ER SERVICE SUPERVISOR
--- NOTE | ~2024-10-09 | CT_ITS ---
CLINICAL INDICATION: Nausea and vomiting COMPARISON: 10/09/2024 and 04/02/2024. TECHNIQUE: Multiple contiguous axial images of the abdomen and pelvis were performed without the admi nistration of intravenous contrast The dose-length product (DLP) was 1187.87 mGy-cm. Automated exposure control and iterative reconstruction technique were employed. FINDINGS/OBSERVATIONS: Visualized lower thorax: Large left and small right-sided pleural effusion. Consolidation of the left lung base is noted. The heart remains U no internal enlarged, with a small pericardial effusion. Small hiatal hernia is present. Liver: The liver demonstrates homogeneous attenuation and is not enlarged measuring 15 cm in longitudinal di mension. Interval development of a small amount of perihepatic fluid. Gallbladder and biliary system: Surgically absent Pancreas: Limited evaluation of the pancreas secondary to the lack of intravenous contrast. Spleen: The spleen demonstrates homogeneous attenuation and is not enlarged measuring 7.3 cm in longitudinal dimension. Kidneys: Redemonstration of left-sided hydroureteronephrosis, increased from prior examination. Mild right-mare ed hydroureteronephrosis is now detected. Multiple nonobstructing stones within the bilateral kidneys. No obstructing ureteral calculus is detected bilaterally. Adrenal glands: The bilateral adrenal glands are thickened, unchanged from prior Gastrointestinal tract: Extraluminal air is identified within the deep pelvis, an interval change from previous examination d ated 10/09/2014. Free fluid is identified within the pelvis surrounding this area of extraluminal air, likely a contai joan perforation. This focus is intimately associated with the dome of the bladder (without a intervening fat plane) fo r which an enterovesicular fistula is suspected (likely the source of Escherichia coli in patient's u rine). This finding is best visualized on axial slices, images 147 through 153. Appendix: The air-filled appendix is of normal caliber (axial series, images 104-106) Vasculature: Densely calcified atherosclerotic disease Lymph nodes: Scattered lymph nodes are identified within the retroperitoneum, in the para-aortic position, and ext ending into the deep pelvis. Pelvic structures: The bladder contains a Clements catheter, with a significant amount of air as well as moderately thicken ed soni. The uterus is surgically absent. Body wall and musculoskeletal: Small fat-containing periumbilical hernia. Increased anasarca when compared with previous examination. Significant degenerative disease within the lower thoracic and lumbosacral spines with osteophyte for mation, disc space narrowing, endplate changes and vacuum phenomenon. This is most prominent at the l evels of L4/L5. IMPRESSION: Extraluminal air is identified within the deep pelvis, an interval change from previous examination. Free fluid is now identified within the pelvis surrounding this area of extraluminal air, for which a contained perforation is suspected. This focus is intimately associated with the dome of the bladder (without a intervening fat plane) for which an enterovesicular fistula is suspected (likely the sour ce of Escherichia coli in patient's urine). These findings were discussed with Dr. Brown at 4:55 PM on 10/14/2024 CT cystogram may elucidate these findings clearer, if the patient is clinically able. Reviewed, dictated and finalized at location A. LAY PLASTICIAN IMPRESSION: Extraluminal air is identified within the deep pelvis, an interval change from previous examination. Free fluid is now identified within the pelvis surrounding this area of extralu violeta air, for which a contained perforation is suspected. This focus is intima tely associated with the dome of the bladder (without a intervening fat plane) for which an enterovesicular fistula is suspected (likely the source of Escheri amaris coli in patient's urine). These findings were discussed with Dr. Brown at 4:55 PM on 10/14/2024 CT cystogram may elucidate these findings clearer, if the patient is clinically able.
--- NOTE | ~2024-10-09 | CT_ITS ---
CLINICAL INDICATION: Possible colovesicular fistula. COMPARISON: CT examination of the abdomen and pelvis performed most recently on 10/14/2024 and dating back to 10/09/2024.. TECHNIQUE: Computed tomography (CT) of the pelvis was performed without intravenous contrast. The dos e-length product was 482.84 mGy-cm. FINDINGS/OBSERVATIONS: Undiluted contrast distends the bladder from retrograde pyelogram performed 2 hours earlier, renderin g detection of a fistulous tract markedly limited. Streak artifact from the full strength contrast within the bladder precludes adequate evaluation of t he surrounding structures. Fecal stasis of increased attenuation is identified within the colon, although its origin is uncertai n. IMPRESSION: Fecal stasis of increased attenuation within the rectosigmoid colon. Streak artifact from the full strength contrast within the bladder precludes adequate evaluation of t he surrounding structures. Given retrograde pyelogram 2 hours earlier, likely direct visual inspection of the bladder for the pr esence or absence of an enterovesicular fistula was performed at that time. Reviewed, dictated and finalized at location A. R TENDER IMPRESSION: Fecal stasis of increased attenuation within the rectosigmoid colon. Streak artifact from the full strength contrast within the bladder precludes ad equate evaluation of the surrounding structures. Given retrograde pyelogram 2 hours earlier, likely direct visual inspection of the bladder for the presence or absence of an enterovesicular fistula was perfo rmed at that time.
--- NOTE | ~2024-10-09 | XR_ITS ---
EXAMINATION: XR chest 2V DATE: 10/09/2024 09:12 INDICATION: Shortness of breath and weakness TECHNIQUE: frontal and lateral views of the chest were obtained. COMPARISON: Chest radiograph and CT abdomen pelvis dated 04/02/2024 FINDINGS: Mild opacities at the left lung base including blunting at the left posterior sulcus consistent with a small left pleural effusion. Right lung is clear. No pneumothorax or right-sided pleural effusion. The cardiomediastinal silhouette is normal. Cholecystectomy clips in right upper quadrant. IMPRESSION: 1. Small left pleural effusion with mild left basilar opacities which could represent associated atel ectasis or pneumonia. Reviewed, dictated and finalized at location B. CAL REIMBURSEMENT SPECIALIST IMPRESSION: 1. Small left pleural effusion with mild left basilar opacities which could rep resent associated atelectasis or pneumonia.
--- NOTE | ~2024-10-09 | US_ITS ---
EXAMINATION: US renal BI DATE: 10/09/2024 14:26 INDICATION: Abdominal pain. Acute kidney injury. TECHNIQUE: Multiple ultrasound grayscale images of the kidneys were obtained. COMPARISON: CT abdomen and pelvis 04/05/2024 FINDINGS: The right kidney measures 9.5 x 4.8 x 4.8 cm. The left kidney measures 11.3 x 6.5 x 5.9 cm. The kidne ys demonstrate normal parenchymal echogenicity. There is mild left hydronephrosis. The bladder is nor mal. IMPRESSION: 1. Mild left hydronephrosis. Reviewed, dictated and finalized at location A. NCE AGENT
--- NOTE | ~2024-10-09 | CT_ITS ---
CLINICAL INDICATION: Diarrhea, lower abdominal pain and leukocytosis. COMPARISON: 04/02/2024 and 07/11/2021. TECHNIQUE: Multiple contiguous axial images of the abdomen and pelvis were performed without the admi nistration of intravenous contrast The dose-length product (DLP) was 857.51 mGy-cm. Automated exposure control and iterative reconstruction technique were employed. FINDINGS/OBSERVATIONS: Visualized lower thorax: Consolidation is identified within the left lung base with adjacent pleural effusion. Trace atelectas is within the right lung base. The heart is enlarged, without pericardial effusion. Liver: The liver demonstrates homogeneous attenuation and is not enlarged measuring 15 cm in longitudinal di mension. Gallbladder and biliary system: The gallbladder is surgically absent. Pancreas: Limited evaluation of the pancreas secondary to the lack of intravenous contrast. Spleen: The spleen demonstrates homogeneous attenuation and is not enlarged measuring 9 cm in longitudinal di mension. Kidneys: Redemonstration of left-sided hydroureteronephrosis The right kidney demonstrates mild hydronephrosis only, without hydroureter. As described on today's renal ultrasound examination (performed 6 hours earlier). No obstructing stone is identified along the course of the left ureter. Adrenal glands: Increased caliber globally of the bilateral adrenal glands. Gastrointestinal tract: Colonic diverticulosis without surrounding inflammatory change. Fecal stasis within the colon. Appendix: The air-filled appendix is of normal caliber (axial series, images 99-102). Vasculature: Unremarkable. Lymph nodes: No pathologically enlarged or morphologically suspicious lymph nodes within the retroperitoneum or at the root of the mesentery. Pelvic structures: The bladder is largely decompressed with a Clements catheter. Significantly thickened soni as well as gas detected in the bladder wall and lumen, findings consist ent with emphysematous cystitis. The uterus is surgically absent. Body wall and musculoskeletal: Moderate degenerative disease within the lower thoracic and lumbosacral spines with osteophyte format ion, disc space narrowing, endplate changes and vacuum phenomena. This is most prominent at the level of L4/L5. IMPRESSION: Left-sided hydroureteronephrosis without a clear source of obstruction. Additional findings consistent with emphysematous cystitis. Reviewed, dictated and finalized at location A. ING SUPERVISOR
--- NOTE | 2024-10-09 08:16 | ECG_ITS ---
Test Date: 2024-10-09 08:10:29 Measurements Intervals [place] Rate: 90 P: 47 GA: 118 QRS: 40 QRSD: 97 T: 62 QT: 324 QTc: 397 Interpretive Statements SINUS RHYTHM BASELINE ARTIFACT- I, II, III, AVR, AVF NORMAL ECG No previous ECG available for comparison Electronically Signed On 10-09-2024 09:36:06 TECHNICAL MARKETING ENGINEER by Stehpane Calderon D.O.
--- NOTE | 2024-10-09 08:40 | ED.GENADULT ---
HPI - General Adult General Chief complaint: Weakness Stated complaint: weak, nausea Time Seen by Provider: 10/09/24 08:17 History of Present Illness HPI narrative: 79-year-old female presented to the emergency department for evaluation for increased generalized weakness nausea vomiting and abdominal cramping. patient does have prior history of CVA. Patient does live at home and is cared for by her family members. Patient arrived to the emergency department unkempt with dried feces on her lower extremities. Related Data Home Medications Medication Instructions Recorded Confirmed ferrous sulfate 325 mg (65 mg 325 mg PO DAILY 10/11/19 10/09/24 iron) tablet [id number]-[id number] 8 mg-folic 400 1 tablet PO DAILY 11/25/21 10/09/24 mcg-K 50 mcg-lutein 300 mcg tablet (Centrum Silver Women) aspirin 81 mg tablet 81 mg PO DAILY 12/16/21 10/09/24 cholecalciferol (vitamin D3) 125 125 mcg PO DAILY 04/03/24 10/09/24 mcg (5,000 unit) capsule fluoxetine 40 mg capsule 40 mg PO DAILY 07/23/24 10/09/24 lisinopril 40 mg tablet 40 mg PO DAILY 07/23/24 10/09/24 insulin glargine 100 unit/mL (3 15 unit subcut QHS 10/09/24 10/09/24 mL) subcutaneous pen (Basaglar KwikPen U-100 Insulin) insulin lispro 100 unit/mL 3 unit subcut TIDWM 10/09/24 10/09/24 subcutaneous solution Allergies Allergy/AdvReac Type Severity Reaction Status Date / Time morphine AdvReac Unknown Nausea and Verified 07/23/24 14:51 Vomiting Review of Systems Review of Systems: All systems reviewed & are unremarkable except as noted in HPI and below [facility] Past Medical History Medical History Anxiety and depression Arthritis Debility Diabetic neuropathy associated with diabetes mellitus due to underlying condition with A1C 7.5% 04/03/2024 Diabetic peripheral neuropathy Endometrial cancer (2009) s/p hysterectomy and radiation Essential (primary) hypertension Family history of colon cancer in father Foot drop, left Gastric ulcer Helicobacter pylori gastritis History of stroke with residual deficit (~01/2018) left sided weakness Hyperlipidemia, unspecified Ileus, postoperative Major depressive disorder, single episode, unspecified NSAID long-term use Renal and ureteric calculus (06/2021) Type 2 diabetes, uncontrolled, with neuropathy With A1c 04/03/2024 7.5% Vertigo Vitamin D deficiency Surgical History Surgical History History of cholecystectomy History of hysterectomy History of total right knee replacement (2009) Family History Family History Father Family history of malignant neoplasm Hypertension Carcinoma of colon Family history of diabetes mellitus in first degree relative Mother Hypertension Cerebrovascular accident Sibling Hypertension Diabetes mellitus Cerebrovascular accident Other Family history of cardiovascular disease Social History Social History Social History: The patient lives at home with a nephew and his girlfriend. She is a lifelong nonsmoker and does not drink alcohol or use illicit substances. She had 1 son who an accidental . Code status: Full code Surrogate decision maker: Katiegill Rodriguez (sister) Smoking status: Never smoker Alcohol intake: never Substance use: never Substance use type: does not use Do You Feel Safe in your Home?: Yes Lack of Transportation: No Lack of Food: Never True Current Housing: I Have Housing Concerned About Future Housing: No Difficulty Paying Gas/Electric Bills: No Difficulty Paying for Meds: No Currently Unemployed: No Education: High School Diploma/GED Difficulty w/ Childcare or Family Care: No Living arrangements: with family Gender identity (if verbalized by the patient): Female Sexual Orientation (if Verbalized by the Patient): Straight or Heterosexual Spiritual care concerns: No Exam Narrative: APPEARANCE: Ill-appearing HEAD: normocephalic, atraumatic. EYES: PERRLA/EOMI, conjunctivae clear. NOSE: Normal no drainage EARS:TMS clear with good light reflex. THROAT: Pharynx clear, no exudate. NECK: Supple. No adenopathy, no masses. RESPIRATORY: Airway patent, respirations nonlabored. Clear to auscultation bilaterally, no rales, rhonchi, wheezing. CARDIOVASCULAR: Regular rate and rhythm without murmurs rubs or gallops. ABDOMINAL: diffuse abdominal tenderness to palpation MUSCULOSKELETAL: Moves all extremities. Strength/ROM intact, No edema, No calf tenderness. NEURO: Alert. 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 Normal Color Course Vital Signs Vital signs: Vital Signs Temperature 97.7 F 10/09/24 07:46 Pulse Rate 91 10/09/24 07:46 Respiratory Rate 28 H 10/09/24 07:46 Blood Pressure 88/43 L 10/09/24 07:46 Pulse Oximetry 95 10/09/24 07:46 Oxygen Delivery Room Air 10/09/24 07:46 Temperature 97.6 F 10/09/24 15:42 Pulse Rate 88 10/09/24 18:00 Respiratory Rate 36 H 10/09/24 15:42 Blood Pressure 137/65 10/09/24 15:42 Pulse Oximetry 97 10/09/24 15:42 Oxygen Delivery Room Air 10/09/24 07:46 Medical Decision Making MDM Narrative Medical decision making narrative: 71-year-old female presents emergency department for evaluation for nausea vomiting increased generalized weakness. patient was afebrile but does have a significantly elevated white blood cell count of 37.2 hemoglobin 11.9. Patient does have acute kidney injury with a creatinine of 3.5 with a typical baseline of 1.1. Patient's initial lactic acid was elevated at 2.2 and patient was treated adequate sepsis fluid bolus. Urinary analysis was significant for infection. Patient was negative for influenza RSV and for COVID. Differential Diagnosis Differential Diagnosis: Colitis, diverticulitis, influenza, RSV, pneumonia, UTI, failure to thrive Vital Signs Vital Signs: Vital Signs Temperature 97.7 F 10/09/24 07:46 Pulse Rate 91 10/09/24 07:46 Respiratory Rate 28 H 10/09/24 07:46 Blood Pressure 88/43 L 10/09/24 07:46 Pulse Oximetry 95 10/09/24 07:46 Oxygen Delivery Room Air 10/09/24 07:46 Temperature 97.6 F 10/09/24 15:42 Pulse Rate 88 10/09/24 18:00 Respiratory Rate 36 H 10/09/24 15:42 Blood Pressure 137/65 10/09/24 15:42 Pulse Oximetry 97 10/09/24 15:42 Oxygen Delivery Room Air 10/09/24 07:46 Lab Data Lab results reviewed: Yes I reviewed the patient's lab results. 10/09/24 08:33 10/09/24 08:33 Labs: Lab Results 10/09/24 10/09/24 Range/Units 08:33 12:14 WBC 37.2 H (4.5-10.0) K/mm3 RBC 3.97 L (4.2-5.4) M/mm3 Hgb 11.9 L (12.0-15.0) g/dL Hct 35.2 L (37.0-47.0) % MCV 88.7 (80-100) fl MCH 30.0 (26-34) pg MCHC 33.8 (32-36) g/dl RDW 15.6 H (11.5-14.5) % Plt Count 138 L D (150-375) k/mm3 MPV 11.2 H (7.4-10.4) fl Immature Gran % (Auto) Not Reportable Neut % (Auto) Not Reportable Lymph % (Auto) Not Reportable [place] % (Auto) Not Reportable Eos % (Auto) Not Reportable Baso % (Auto) Not Reportable Lymph # (Auto) Not Reportable [place] # (Auto) Not Reportable Eos # (Auto) Not Reportable Baso # (Auto) Not Reportable Abs Immat Gran (auto) Not Reportable Absolute Neuts (auto) Not Reportable Absolute Nucleated RBC Not Reportable Total Counted 100 Neutrophils % (Manual) 81 H (46-73) % Band Neutrophils % 11 H (0-6) % Lymphocytes % (Manual) 2.0 L (18-44) % Monocytes % (Manual) 6 (3-9) % Nucleated RBC % Not Reportable Abs Neuts (Manual) 34.22 H (1.7-7.2) K/mm3 Abs Lymphs (Manual) 0.74 L (1.1-4.5) K/mm3 Abs Monocytes (Manual) 2.23 H (0.1-0.90) K/mm3 Platelet Estimate Slightly decreased (Adequate) Schistocytes None seen PT 17.7 H (11.1-14.7) Seconds INR 1.4 APTT 31.4 (22.3-36.8) Seconds Sodium 138 (137-145) mmol/L Potassium 4.5 (3.4-5.0) mmol/L Chloride 102 (98-107) mmol/L Carbon Dioxide 17 L (22-30) mmol/L Anion Gap 19 H (4-12) mmol/L BUN 87 H D (7-17) mg/dL Creatinine 3.50 H (0.7-1.0) mg/dL Estim Creat Clear Calc 11 ml/min Estimated GFR 13 L (59 - ) Glucose 118 H (65-110) mg/dL Lactic Acid 3.4 H 2.2 H (0.7-2.0) mmol/L Calcium 9.2 (8.4-10.2) mg/dL Total Bilirubin 0.9 (0.2-1.3) mg/dL AST 140 H (14-36) U/L ALT 93 H (6-35) U/L Alkaline Phosphatase 101 (38-126) U/L C-Reactive Protein 41.9 H (<1.0) mg/dL Total Protein 7.0 (6.3-8.2) g/dL Albumin 3.7 (3.5-5.1) g/dL Urine Color Yellow (Yellow) Urine Appearance Turbid H (Clear) Urine pH 5.5 (5.0-9.0) Ur Specific [place] 1.013 (1.001-1.035) Urine Protein 2+ H (Negative) mg/dL Urine Glucose (UA) Negative (Negative) mg/dL Urine Ketones Negative (Negative) mg/dL Ur Blood (Man) 3+ H (Negative) Urine Nitrate Negative (Negative) Urine Bilirubin Negative (Negative) Urine Urobilinogen 0.2 (<2.0) mg/dL Add Ur Microanalysis Reviewed Leukocyte Esterase Rfl 3+ H (Negative) MITZI/UL Urine RBC 6-10 H (0-2) /hpf Urine WBC >100 H (0-3) /hpf Ur Squamous Epith Cells Moderate (Few) /hpf Urine Bacteria 4+ H /hpf Urine Casts >20 Influenza A (RT-PCR) Negative (Negative) Influenza B (RT-PCR) Negative (Negative) RSV (RT-PCR) Negative (Negative) SARS-CoV-2 RNA (RT-PCR) Negative (Negative) Imaging Data Radiologist's impression: Impressions Chest X-Ray 10/09/24 09:14 IMPRESSION: 1. Small left pleural effusion with mild left basilar opacities which could represent associated atelectasis or pneumonia. Discharge Plan Discharge Clinical Impression: JEFFERY (acute kidney injury), Acute UTI, Weakness Patient Disposition: Still a Patient Condition: Serious
[2024-10-09 08:47] LABS: Hematocrit 35.2 % (37.0-47.0); Hemoglobin 11.9 g/dL (12.0-15.0); Mean Corpuscular HGB Conc 33.8 g/dl (32-36); Mean Corpuscular Volume 88.7 fl (80-100); Mean Platelet Volume 11.2 fl (7.4-10.4); Platelet Count Result 138 k/mm3 (150-375); Red Blood Count 3.97 M/mm3 (4.2-5.4); Red Cell Distribution Width 15.6 % (11.5-14.5); White Blood Count 37.2 K/mm3 (4.5-10.0)
[2024-10-09 09:00] LABS: INR 1.4; Partial Thromboplastin Time 31.4 Seconds (22.3-36.8); Prothrombin Time 17.7 Seconds (11.1-14.7)
[2024-10-09 09:02] LABS: Lactic Acid Reflex 3.4 mmol/L (0.7-2.0)
--- NOTE | 2024-10-09 09:17 | PC.NURSE ---
pt receiving the rest of IV NS from ems per Dr. Montano. ALEKSEY. pt has received a total of 1L of NS.
[2024-10-09 09:22] LABS: Alanine Aminotransferase 93 U/L (6-35); Albumin Level 3.7 g/dL (3.5-5.1); Alkaline Phosphatase 101 U/L (38-126); Anion Gap 19 mmol/L (4-12); Aspartate Amino Transferase 140 U/L (14-36); Bilirubin,Total 0.9 mg/dL (0.2-1.3); Blood Urea Nitrogen 87 mg/dL (7-17); Calcium 9.2 mg/dL (8.4-10.2); Carbon Dioxide 17 mmol/L (22-30); Chloride 102 mmol/L (98-107); Estimated CRCL calculation 11 ml/min; Estimated Glomerular Filt Rate 13; Glucose 118 mg/dL (65-110); Potassium 4.5 mmol/L (3.4-5.0); Sodium 138 mmol/L (137-145)
[2024-10-09 09:28] LABS: Influenza A QL RT-PCR Negative (Negative); Influenza B QL RT-PCR Negative (Negative); RSV RNA, RT-PCR Negative (Negative); SARS-CoV-2 RNA PCR Negative (Negative)
[2024-10-09 09:33] LABS: Add Urine Microscopic? YES; Appearance Urine Turbid (Clear); Bacteria Urine 4+ /hpf; Bilirubin Urine Negative (Negative); Blood Urine 3+ (Negative); Color Urine Yellow (Yellow); Glucose Urine UA Negative (Negative); Ketones Urine Negative (Negative); Leukocyte Esterase Ur 3+ LEU/UL (Negative); Need Manual Microscopic Reviewed; Nitrate Urine Negative (Negative); Non Pathogenic Casts >20; Protein Urine 2+ mg/dL (Negative); Specific Grav Ur 1.013 (1.001-1.035); Squamous Epithelial Cell Urine Moderate /hpf (Few); Urobilinogen Urine 0.2 mg/dL (<2.0); WBC Urine >100 /hpf (0-3); pH Urine 5.5 (5.0-9.0)
[2024-10-09 09:37] LABS: CRP 41.9 mg/dL (<1.0)
[2024-10-09] MEDS: SODIUM CHLORIDE 0.9% IV 2,000 ML/1,000 ML BAG 999 ML IV CONT (10:14)
[2024-10-09] MEDS: AZITHROMYCIN 500 MG/NS 250 ML 500 MG/250 ML BAG 250 MG IVPB (10:15)
[2024-10-09 10:27] LABS: Band Neutrophils Percent 11 % (0-6); Lymphocytes Absolute Manual 0.74 K/mm3 (1.1-4.5); Monocytes Absolute Manual 2.23 K/mm3 (0.1-0.90); Monocytes Percent Manual 6 % (3-9); Neutrophils Absolute Manual 34.22 K/mm3 (1.7-7.2); Neutrophils Percent Manual 81 % (46-73); Total Cells Counted 100
[2024-10-09 10:28] LABS: Platelet Estimate Slightly Decreased (Adequate)
[2024-10-09 10:29] LABS: Schistocytes None Seen
[2024-10-09 11:44] LABS: Reflex Lactic Acid Yes or No Add Lactic
--- NOTE | 2024-10-09 12:08 | PC.NURSE ---
per Dr. Montano, pt to receive 3L of NS IV bolus per sepsis protocol. VORB. pt received 1L by ems and 1L in the ED. TISHA Crowley made aware on IMU.
[2024-10-09] MEDS: SODIUM CHLORIDE 0.9% IV 1,000 ML 999 ML IV CONT (12:28)
[2024-10-09 12:41] LABS: Lactic Acid 2.2 mmol/L (0.7-2.0)
--- NOTE | 2024-10-09 13:07 | P.HP_ITS ---
H&P: HPI History of Present Illness Date/Time: 10/09/24 13:07 Chief Complaint: Weakness Narrative: 79 y/o F presents here with weakness with PMH of CVA (residual left-sided deficits in 2018), HTN, MDD, kidney stones, type 2 diabetes, vertigo, and vitamin-D deficiency. The patient presents here from home for further evaluation of generalized weakness. She reports onset of generalized weakness approximately 4 days ago. Weakness is accompanied by nausea, vomiting, leg pain (bilateral) near groin, and lower abdominal pain. She describes the lower abdominal pain as dull, nonradiating, intermittent, aggravated by twisting motion, and no alleviating factors. Also reporting body aches, intermittent dry cough, shortness of breath (since resolved), urinary frequency, and diarrhea. Diarrhea has been ongoing for 5 days, approximates she is having 3-4 episodes per day. She denies fever, chills, melena or bright red blood per rectum, hematuria, or dysuria. Due to weakness preventing her from standing, her nephew called EMS. Upon their arrival the patient was 90% on room air, she was placed on 2L NC with increase in her O2 sat to 99%. No previous supplemental O2 requirement, never smoker. Initial BP also soft at 90/40, given 100 mL bolus by EMS, and arrived to the ED at 88/43. The patient currently lives at home with her nephew and his girlfriend. She reports at baseline that she cares for herself independently and prior to the generalized weakness, she had no issues and feels safe to return home. Reports last episode of kidney stones was 5-10 years ago, reports pain is not similar to her previous experiences. Initial VS at presentation: 97.7? F, HR 91, RR 28, 88/43, and 95% on RA. ED workup showed: WBC 37.2, hemoglobin 11.9 (previously 13.2 on 09/05/2024), INR 1.4, creatinine 3.5 and GFR 13 (previously 1.1 and GFR 48 on 09/05/2024), lactic 3.4, CRP 41.9, and UA consistent with UTI. Viral PCR negative. CXR showed a small left pleural effusion with mild left basilar opacities which could represent associated atelectasis versus pneumonia. Review of Systems Review of Systems: All systems reviewed & are unremarkable except as noted in HPI and below PMFSH Past Medical History Medical History Anxiety and depression Arthritis Debility Diabetic neuropathy associated with diabetes mellitus due to underlying condition with A1C 7.5% 04/03/2024 Diabetic peripheral neuropathy Endometrial cancer (2009) s/p hysterectomy and radiation Essential (primary) hypertension Family history of colon cancer in father Foot drop, left Gastric ulcer Helicobacter pylori gastritis History of stroke with residual deficit (~01/2018) left sided weakness Hyperlipidemia, unspecified Ileus, postoperative Major depressive disorder, single episode, unspecified NSAID long-term use Renal and ureteric calculus (06/2021) Type 2 diabetes, uncontrolled, with neuropathy With A1c 04/03/2024 7.5% Vertigo Vitamin D deficiency Surgical History Surgical History History of cholecystectomy History of hysterectomy History of total right knee replacement (2009) Family History Family History Father Family history of malignant neoplasm Hypertension Carcinoma of colon Family history of diabetes mellitus in first degree relative Mother Hypertension Cerebrovascular accident Sibling Hypertension Diabetes mellitus Cerebrovascular accident Other Family history of cardiovascular disease Social History Social History Social History: The patient lives at home with a nephew and his girlfriend. She is a lifelong nonsmoker and does not drink alcohol or use illicit substances. She had 1 son who an accidental . Code status: Full code Surrogate decision maker: Katie Rodriguez (sister) Smoking status: Never smoker Alcohol intake: never Substance use: never Substance use type: does not use Do You Feel Safe in your Home?: Yes Lack of Transportation: No Lack of Food: Never True Current Housing: I Have Housing Concerned About Future Housing: No Difficulty Paying Gas/Electric Bills: No Difficulty Paying for Meds: No Currently Unemployed: No Education: High School Diploma/GED Difficulty w/ Childcare or Family Care: No Living arrangements: with family Gender identity (if verbalized by the patient): Female Sexual Orientation (if Verbalized by the Patient): Straight or Heterosexual Spiritual care concerns: No Meds Home Medications and Allergies Home Medications Medication Instructions Recorded Confirmed Type ferrous sulfate 325 mg (65 mg 325 mg PO DAILY 10/11/19 10/09/24 History iron) tablet [id number]-[id number]-[id number] 8 mg-folic 400 1 tablet PO DAILY 11/25/21 10/09/24 History mcg-K 50 mcg-lutein 300 mcg tablet (Centrum Silver Women) aspirin 81 mg tablet 81 mg PO DAILY 12/16/21 10/09/24 History amlodipine 10 mg tablet 10 mg PO DAILY #90 tabs 03/27/24 10/09/24 Rx cholecalciferol (vitamin D3) 125 125 mcg PO DAILY 04/03/24 10/09/24 History mcg (5,000 unit) capsule ascorbic acid (vitamin C) 500 mg 1,000 mg PO DAILY 30 days #60 tabs 04/14/24 10/09/24 Rx tablet (Vitamin C) docusate sodium 100 mg capsule 100 mg PO DAILY 30 days #30 caps 04/14/24 10/09/24 Rx pantoprazole 40 mg tablet,delayed 40 mg PO Q12H 30 days #60 tabs 04/14/24 10/09/24 Rx release fluoxetine 40 mg capsule 40 mg PO DAILY 07/23/24 10/09/24 History lisinopril 40 mg tablet 40 mg PO DAILY 07/23/24 10/09/24 History atorvastatin 40 mg tablet 40 mg PO QHS #90 tabs 08/20/24 10/09/24 Rx pen needle, diabetic 32 gauge x #100 ea 09/03/24 10/09/24 Rx 1/4 (BD Ultra-Fine Micro Pen Needle) insulin glargine 100 unit/mL (3 15 unit subcut QHS 10/09/24 10/09/24 History mL) subcutaneous pen (Basaglar KwikPen U-100 Insulin) insulin lispro 100 unit/mL 3 unit subcut TIDWM 10/09/24 10/09/24 History subcutaneous solution Allergies Allergy/AdvReac Type Severity Reaction Status Date / Time morphine AdvReac Unknown Nausea and Verified 07/23/24 14:51 Vomiting Vital Signs Vital Signs - 24 hr 10/09/24 07:46 10/09/24 08:41 10/09/24 08:15 Temperature 97.7 F Pulse Rate 91 88 90 Respiratory Rate 28 H 26 H Blood Pressure 88/43 L 102/47 L Pulse Oximetry 95 94 Oxygen Delivery Room Air 10/09/24 10:15 10/09/24 10:58 10/09/24 12:00 Temperature 98.3 F 97.7 F Pulse Rate 88 96 83 Respiratory Rate 25 H 36 H 36 H Blood Pressure 107/50 L 127/57 L 127/51 L Pulse Oximetry 95 97 97 Oxygen Delivery Exam Const: General: no acute distress and uncomfortable Other: , female, ill-appearing HENMT: Face/Nose/Sinus: Normal nares present Mouth: Yes dry mucous membranes Eyes: General: appearance normal, both eyes and all related structures Sclera: sclerae normal Pupils: Equal, round and reactive pupils present EOM: EOMs intact bilaterally Resp: Other: tachypnea without accessory muscle use, no wheezing or crackles on exam Cardio: Rate: regular rate Rhythm: regular rhythm Other: S1-S2 present without murmur, rub, ectopy GI: Other: abdomen tender in the lower quadrants and suprapubic region (worse in the LLQ and suprapubic region) Urinary Catheter: Urinary Catheter: patent and draining (minimal output, thick/cloudy) Skin: General skin exam: normal color and no rashes or lesions noted Wounds: no wounds Neuro: Speech: normal speech Motor exam (neuro): 5/5 motor strength present throughout Sensory Exam: normal sensation Other: A/Ox4 Extrem: General: normal to inspection Psych: Mental Status: mental status grossly normal Affect: normal affect Other: fair insight and judgment H&P: Results Labs Labs: Short CBC 10/09/24 Range/Units 08:33 WBC 37.2 H (4.5-10.0) K/mm3 Hgb 11.9 L (12.0-15.0) g/dL Hct 35.2 L (37.0-47.0) % Plt Count 138 L D (150-375) k/mm3 BMP 10/09/24 08:33 Sodium 138 Potassium 4.5 Chloride 102 Carbon Dioxide 17 L BUN 87 H D Creatinine 3.50 H Glucose 118 H Calcium 9.2 Liver Function 10/09/24 Range/Units 08:33 Total Bilirubin 0.9 (0.2-1.3) mg/dL AST 140 H (14-36) U/L ALT 93 H (6-35) U/L Alkaline Phosphatase 101 (38-126) U/L Albumin 3.7 (3.5-5.1) g/dL Urine 10/09/24 Range/Units 08:33 Urine Color Yellow (Yellow) Urine Appearance Turbid H (Clear) Urine pH 5.5 (5.0-9.0) Ur Specific [place] 1.013 (1.001-1.035) Urine Protein 2+ H (Negative) mg/dL Urine Glucose (UA) Negative (Negative) mg/dL Assessment and Plan Assessment and plan (1) Sepsis: Qualifiers: Sepsis acute organ dysfunction status: unspecified Sepsis type: sepsis due to unspecified organism Qualified Code(s): A41.9 - Sepsis, unspecified organism Code(s): A41.9 - Sepsis, unspecified organism Status: Acute Assessment and Plan: - meets SIRS criteria: HR, WBC. Initially BP was soft. - lactic acid: 3.4 -> 2.2 - lactic elevated, procalcitonin added - 30 mL/kg = 1900, given 3L bolus. Adding 1L bolus at 100 mL/hr, still has poor UOP. - suspected source: pneumonia and UTI - started on ceftriaxone and azithromycin on 10/09 - blood cultures drawn on 10/09, follow - monitor hemodynamic stability (2) Acute UTI: Code(s): N39.0 - Urinary tract infection, site not specified Status: Acute Assessment and Plan: - UA: Turbid, 2+ protein, 3+ blood, 3+ leuks, 6-10 RBC, greater than 100 WBC, moderate epithelial cells, 4+ bacteria. - UC pending - previous micro reviewed, 03/2024 UC grew pansensitive E coli. No further micro available. - started on Ceftriaxone - fluid resuscitated, Tylenol p.r.n. Has had 3L bolus, only had 126 [address] Kasper for accurate I&Os. Continue hydrating with 100 mL/hr x1L. (3) Pneumonia: Qualifiers: Laterality: left Lung location: lower lobe of lung Pneumonia type: due to unspecified organism Qualified Code(s): J18.9 - Pneumonia, unspecified organism Code(s): J18.9 - Pneumonia, unspecified organism Status: Suspected Assessment and Plan: - CXR: small left pleural effusion with mild left basilar opacities which could represent associated atelectasis or pneumonia. - risk factors and complicating factors: concurrent UTI - started on CAP tx: ceftriaxone and azithromycin - MRSA PCR and sputum culture if obtainable - Viral PCR negative - initially required 2L NC which is new, now on room air - supportive care (4) JEFFERY (acute kidney injury): Code(s): N17.9 - Acute kidney failure, unspecified Status: Acute Assessment and Plan: - creatinine 3.5 and GFR 13, previously 1.1 and GFR 48 - renal ultrasound: mild left hydronephrosis - monitor I&Os w/kasper for accuracy - trend renal function - trend electrolytes, correct as needed - consider further workup if no improvement with IV fluids and treatment of current UTI (5) Type 2 diabetes mellitus with hyperglycemia, with long-term current use of insulin: Code(s): E11.65 - Type 2 diabetes mellitus with hyperglycemia; Z79.4 - long term care pharmacist (current) use of insulin Status: Chronic Assessment and Plan: - hypoglycemia protocol - POC blood glucose ACHS - home medication: continue Lantus 15 units HS and Lispro 3 units TIDWM - correct regimen ordered - moderate dose TIDWM, based off BMI - A1C 7.1% on 09/05/2024 (6) Essential (primary) hypertension: Code(s): I10 - Essential (primary) hypertension Status: Chronic Assessment and Plan: - chronic, currently 127/51 - home medications: will hold amlodipine 10 mg daily, lisinopril 40 mg daily - monitor Plan Diet: Diabetic GI Prophylaxis: Continue home pantoprazole DVT Prophylaxis: SCDs Lines: Peripheral Code Status: Full code Quality VTE Prophylaxis VTE prophylaxis: mechanical ordered Hospitalist [facility] Advance Care Plan I have confirmed that the patient's Advanced Care Plan is present, code status is documented, or surrogate decision maker is listed in patient medical record.: Yes Medication Reconciliation I have utilized all available resources to obtain, update and review the p atients current medications (includes all prescriptions, OTC, herbals, cannabis, and nutritional supplements).: Yes
--- NOTE | 2024-10-09 13:12 | ADMGEN ---
This patient, Florence Barba, was admitted to IMU Room 214-01 @ 1050. Patient oriented to hospital policies and general routines including ID bracelet, bed and alarms, visiting hours, pain management, procedures, bathroom and other care routines, personal items, smoking policy, room service/diet, and visiting hours. Information on how to activate the Rapid Response Team has been discussed. Patient/Family are encouraged to report perceived risks to care and to ask questions if they do not understand what they are told or what they should do.
[2024-10-09 16:34] LABS: Glucose Point of Care 167 mg/dl (65-105)
[2024-10-09] MEDS: LACTATED RINGERS 1,000 ML 100 ML IV CONT (16:39)
[2024-10-09] MEDS: guaiFENesin 12 HR 600 MG TABCR PO (16:45)
[2024-10-09 17:51] LABS: MRSA (PCR) NOT DETECTED (NOT DETECTE)
[2024-10-09 18:12] LABS: Lactic Acid Reflex 3.7 mmol/L (0.7-2.0)
[2024-10-09] MEDS: ONDANSETRON INJ 4 MG/2 ML VIAL IV PUSH (18:13)
[2024-10-09 19:11] LABS: Procalcitonin > 100.0 ng/mL
[2024-10-09 19:48] LABS: Glucose Point of Care 180 mg/dl (65-105)
[2024-10-09] MEDS: INSULIN GLARGINE (*BKC) 100 UNITS/ML 15 UNITS SUB-Q (20:46)
[2024-10-09] MEDS: PANTOPRAZOLE 40 MG TABLET PO (20:47)
[2024-10-09] MEDS: ATORVASTATIN 40 MG TABLET PO (20:47)
[2024-10-09] MEDS: SODIUM BICARBONATE 8.4% 150 MEQ in DEXTROSE 5% 1,000 ML 950 ML 100 MEQ IV CONT (23:28)
[2024-10-10] VITALS (21 sets, daily range): BP systolic 99–155; BP diastolic 53–91; PULSE 65–96; RESP 20–32; TEMP 36.8–37.1; O2SAT 93–97; BMI 25.9
[2024-10-10 05:36] LABS: Alanine Aminotransferase 90 U/L (6-35); Albumin Level 3.1 g/dL (3.5-5.1); Alkaline Phosphatase 72 U/L (38-126); Anion Gap 10 mmol/L (4-12); Aspartate Amino Transferase 150 U/L (14-36); Bilirubin,Total 0.6 mg/dL (0.2-1.3); Blood Urea Nitrogen 83 mg/dL (7-17); Calcium 8.1 mg/dL (8.4-10.2); Carbon Dioxide 19 mmol/L (22-30); Chloride 105 mmol/L (98-107); Estimated CRCL calculation 13 ml/min; Estimated Glomerular Filt Rate 17; Glucose 157 mg/dL (65-110); Potassium 5.3 mmol/L (3.4-5.0); Sodium 134 mmol/L (137-145)
[2024-10-10 08:03] LABS: Glucose Point of Care 177 mg/dl (65-105)
[2024-10-10 09:00] LABS: Hematocrit 35.3 % (37.0-47.0); Hemoglobin 11.8 g/dL (12.0-15.0); Immature Platelet Fraction Pct 3.8 % (0.9-11.2); Mean Corpuscular HGB Conc 33.4 g/dl (32-36); Mean Corpuscular Hemoglobin 29.6 pg (26-34); Mean Corpuscular Volume 88.7 fl (80-100); Mean Platelet Volume 10.8 fl (7.4-10.4); Platelet Count Result 97 k/mm3 (150-375); Red Blood Count 3.98 M/mm3 (4.2-5.4); Red Cell Distribution Width 15.7 % (11.5-14.5); White Blood Count 12.1 K/mm3 (4.5-10.0)
[2024-10-10] MEDS: AZITHROMYCIN 500 MG/NS 250 ML 500 MG/250 ML BAG 250 MG IVPB (09:29)
[2024-10-10 09:34] LABS: Band Neutrophils Percent 11 % (0-6); Lymphocytes Absolute Manual 0.36 K/mm3 (1.1-4.5); Lymphocytes Percent Manual 3 % (18-44); Monocytes Absolute Manual 0.24 K/mm3 (0.1-0.90); Monocytes Percent Manual 2 % (3-9); Neutrophils Absolute Manual 11.49 K/mm3 (1.7-7.2); Neutrophils Percent Manual 84 % (46-73); Total Cells Counted 100
[2024-10-10 09:35] LABS: Platelet Estimate Decreased (Adequate); Schistocytes None Seen
[2024-10-10] MEDS: FLUoxetine HCL 20 MG CAPSULE 40 MG PO (09:35)
[2024-10-10] MEDS: CHOLECALCIFEROL 1,000 UNITS TABLET 1000 UNITS PO (09:35)
[2024-10-10] MEDS: PANTOPRAZOLE 40 MG TABLET PO ×2 (09:36→21:44)
[2024-10-10] MEDS: ASPIRIN 81 MG ENTERIC TABLET PO (09:38)
[2024-10-10 11:56] LABS: Glucose Point of Care 153 mg/dl (65-105)
[2024-10-10] MEDS: SODIUM BICARBONATE 8.4% 150 MEQ in DEXTROSE 5% 1,000 ML 950 ML 100 MEQ IV CONT ×2 (12:20→23:00)
[2024-10-10] MEDS: guaiFENesin 12 HR 600 MG TABCR PO ×2 (12:23→21:44)
[2024-10-10] MEDS: THERAPEUTIC MULTIVITAMINS/MINERALS TAB (*BKC) 1 TABLET PO (12:24)
[2024-10-10] MEDS: FERROUS SULFATE 325 MG TABLET DR PO (12:28)
[2024-10-10] MEDS: ASCORBIC ACID 500 MG TABLET 1000 MG PO (12:28)
--- NOTE | 2024-10-10 15:49 | P.PNIM_ITS ---
Progress Note: A&P Assessment and Plan (1) Sepsis: Qualifiers: Sepsis acute organ dysfunction status: unspecified Sepsis type: sepsis due to unspecified organism Qualified Code(s): A41.9 - Sepsis, unspecified o rganism Code(s): A41.9 - Sepsis, unspecified organism Status: Acute Assessment and Plan: resolving WBC 12 from 37.2, HR wnl, and continue IVF and monitor lactic acid - suspected source: pneumonia and UTI on ceftriaxone and azithromycin on 10/09 blood culture positive for GNR (2) Acute UTI: Code(s): N39.0 - Urinary tract infection, site not specified Status: Acute Assessment and Plan: f/u urine culture Continue Rocephin and IVF . (3) Pneumonia: Qualifiers: Pneumonia type: due to unspecified organism Laterality: left Lung location: lower lobe of lung Qualified Code(s): J18.9 - Pneumonia, unspecified organism Code(s): J18.9 - Pneumonia, unspecified organism Status: Suspected Assessment and Plan: - CXR: small left pleural effusion with mild left basilar opacities which could represent associated atelectasis or pneumonia. MRSA negative Continue Rocephin and Azithromycin (4) JEFFERY (acute kidney injury): Code(s): N17.9 - Acute kidney failure, unspecified Status: Acute Assessment and Plan: - creatinine 3.5 and GFR 13, previously 1.1 and GFR 48 - renal ultrasound: mild left hydronephrosis monitor Is and Os Cr 2.7 from 3.5 continue IVF Urology consulted for left hydronephrosis (5) Type 2 diabetes mellitus with hyperglycemia, with long-term current use of insulin: Code(s): E11.65 - Type 2 diabetes mellitus with hyperglycemia; Z79.4 - USP (curr ent) use of insulin Status: Chronic Assessment and Plan: - hypoglycemia protocol - POC blood glucose ACHS - home medication: continue Lantus 15 units HS and Lispro 3 units TIDWM - correct regimen ordered - moderate dose TIDWM, based off BMI - A1C 7.1% on 09/05/2024 (6) Essential (primary) hypertension: Code(s): I10 - Essential (primary) hypertension Status: Chronic Assessment and Plan: - chronic, currently 127/51 - home medications: will hold amlodipine 10 mg daily, lisinopril 40 mg daily - monitor Plan GNR bacteremia Likely from UTI continue Monitoring blood cultures and awaitin speciation and sensitivity repeat blood culture tomorrow continue abx above Diet: Diabetic GI Prophylaxis: Continue home pantoprazole DVT Prophylaxis: Sq heparin Lines: Peripheral Code Status: Full code Subjective Date/time seen: 10/10/24 15:49 Interval history: Comfortable at bedside CT AP showed emphysematous cystitis, urology consulted Blood culture positive for GNR Review of Systems Review of Systems: All systems reviewed & are unremarkable except as noted in HPI and below Exam Const: General: no acute distress and uncomfortable Other: , female, ill-appearing HENMT: Face/Nose/Sinus: Normal nares present Mouth: Yes dry mucous membranes Eyes: General: appearance normal, both eyes and all related structures Sclera: sclerae normal Pupils: Equal, round and reactive pupils present EOM: EOMs intact bilaterally Resp: Other: tachypnea without accessory muscle use, no wheezing or crackles on exam Cardio: Rate: regular rate Rhythm: regular rhythm Other: S1-S2 present without murmur, rub, ectopy GI: Other: abdomen tender in the lower quadrants and suprapubic region (worse in the LLQ and suprapubic region) Urinary Catheter: Urinary Catheter: patent and draining (minimal output, thick/cloudy) Skin: General skin exam: normal color and no rashes or lesions noted Wou nds: no wounds Neuro: Cranial nerves: Yes Equal, round and reactive pupils present Speech: normal speech Motor exam (neuro): 5/5 motor strength present throughout Sensory Exam: normal sensation Other: A/Ox4 Extrem: General: normal to inspection Psych: Mental Status: mental status grossly normal Affect: normal affect Other: fair insight and judgment Objective Data Vital Signs Vital Signs: Vital Signs - 24 hr 10/09/24 16:20 10/09/24 18:00 10/09/24 20:09 Temperature 97.6 F Pulse Rate 88 88 85 Respiratory Rate 23 H Blood Pressure 138/60 Pulse Oximetry 100 Oxygen Delivery 10/09/24 20:00 10/09/24 20:00 10/09/24 22:00 Temperature Pulse Rate 85 85 82 Respiratory Rate 23 H Blood Pressure Pulse Oximetry 100 Oxygen Delivery Room Air 10/09/24 23:38 10/09/24 23:40 10/09/24 23:40 Temperature 97.8 F Pulse Rate 89 90 90 Respiratory Rate 22 H 22 H Blood Pressure 150/71 H Pulse Oximetry 98 98 Oxygen Delivery Room Air 10/10/24 02:00 10/10/24 03:45 10/10/24 04:00 Temperature 98.4 F Pulse Rate 96 65 86 Respiratory Rate 22 H 22 H Blood Pressure 147/64 H Pulse Oximetry 97 97 Oxygen Delivery Room Air 10/10/24 04:00 10/10/24 05:44 10/10/24 07:27 Temperature 98.3 F Pulse Rate 86 84 83 Respiratory Rate 28 H Blood Pressure 150/76 H Pulse Oximetry 95 Oxygen Delivery 10/10/24 08:51 10/10/24 11:44 10/10/24 11:55 Temperature 98.6 F Pulse Rate 93 Respiratory Rate 32 H Blood Pressure 99/57 L 108/53 L Pulse Oximetry 95 95 Oxygen Delivery Room Air Intake/Output Intake/Output: Intake & Output 10/07/24 10/08/24 10/09/24 10/10/24 23:59 23:59 23:59 23:59 Intake Total 2540 3320 Output Total 300 900 Balance 2240 2420 Meds/Results Medications: Active Medications Generic Name Dose Route Start Last Admin Trade Name Freq PRN Reason Stop Dose Admin Acetaminophen 650 mg 10/09/24 15:44 Acetaminophen 325 Mg Tablet PO Q6H PRN Pain Rated 5 or Less, Fever Albuterol/Ipratropium 3 ml 10/09/24 14:33 Ipratropium 0.5 Mg/Albuterol Sulfate 2.5 Mg Ampul.Neb 3 Ml NEBULIZE Q6HRT PRN Shortness Of Breath Or Wheezing Ascorbic Acid 1,000 mg 10/10/24 09:00 10/10/24 12:28 Ascorbic Acid 500 Mg Tablet PO 1,000 mg DAILY RYAN Administration Aspirin 81 mg 10/10/24 09:00 10/10/24 09:38 Aspirin 81 Mg Enteric Tablet PO 11/09/24 08:59 81 mg DAILY RYAN Administration Atorvastatin Calcium 40 mg 10/09/24 21:00 10/09/24 20:47 Atorvastatin 40 Mg Tablet PO 40 mg QHS RYAN Administration Benzocaine 1 lozenge 10/09/24 14:33 Benzocaine/Menthol (*Bkc) 18 Ea Lozenge PO PRN PRN Sore Throat Benzonatate 100 mg 10/09/24 14:33 Benzonatate 100 Mg Capsule PO TID PRN Cough Dextrose 12.5 gm 10/09/24 13:29 Dextrose 50% 25 Gm/50 Ml Syringe IV PUSH PRN PRN Hypoglycemia Protocol Docusate Sodium 100 mg 10/10/24 09:00 10/10/24 12:27 Docusate Sodium 100 Mg Capsule PO Not Given DAILY RYAN Fentanyl Citrate 25 mcg 10/09/24 15:44 Fentanyl Citrate Inj (*Crx) 100 Mcg/2 Ml Vial IV PUSH Q4H PRN Pain Rated 6 or Greater Ferrous Sulfate 325 mg 10/10/24 09:00 10/10/24 12:28 Ferrous Sulfate [address] PO 11/09/24 08:59 325 mg DAILY RYAN Administration Fluoxetine HCl 40 mg 10/10/24 09:00 10/10/24 09:35 Fluoxetine Hcl 20 Mg Capsule PO 40 mg DAILY RYAN Administration Glucagon 1 mg 10/09/24 13:29 Glucagon For Inj 1 Mg Vial IM PRN PRN Hypoglycemia Protocol Glucose 15 gm 10/09/24 13:29 Glucose Oral Gel 15 Gm Of Glucse In 37.5 Gm Tube PO PRN PRN Hypoglycemia Protocol Guaifenesin 600 mg 10/09/24 15:00 10/10/24 12:23 Guaifenesin 12 Hr 600 Mg Tabcr PO 600 mg Q12HR RYAN Administration Azithromycin 500 mg in 250 mls @ 250 mls/hr 10/10/24 09:00 10/10/24 11:00 Zithromax IVPB Infused Q24H RYAN Infusion Dextrose 1,000 mls @ 100 mls/hr 10/09/24 13:29 Dextrose 5% 1,000 Ml IVPB PRN PRN Hypoglycemia Protocol Sodium Bicarbonate 150 meq/ 1,100 mls @ 100 mls/hr 10/09/24 22:00 10/10/24 12:20 Dextrose IV CONT 100 mls/hr .Q11H RYAN Administration Ceftriaxone Sodium 2 gm in 100 mls @ 200 mls/hr 10/11/24 09:00 Rocephin 2 Gm/Ns 100 Ml IVPB DAILY RYAN Insulin Aspart 3 - 6 units 10/09/24 17:00 10/10/24 12:24 Insulin Aspart (*Bkc) 100 Units/Ml SUB-Q Not Given TIDWM [facility] Protocol Insulin Aspart 3 units 10/09/24 17:00 10/10/24 12:31 Insulin Aspart (*Bkc) 100 Units/Ml SUB-Q 11/08/24 16:59 Not Given TIDWM [facility] Insulin Glargine 15 units 10/09/24 21:00 10/09/24 20:46 Insulin Glargine (*Bkc) 100 Units/Ml SUB-Q 15 units QHS RYAN Administration Multivitamins/Calcium 1 tablet 10/10/24 09:00 10/10/24 12:24 Therapeutic Multivitamins/Minerals Tab (*Bkc) PO 1 tablet DAILY RYAN Administration Ondansetron HCl 4 mg 10/09/24 09:54 10/09/24 18:13 Ondansetron Inj 4 Mg/2 Ml Vial IV PUSH 4 mg Q4H PRN Administration Nausea Pantoprazole Sodium 40 mg 10/09/24 21:00 10/10/24 09:36 Pantoprazole 40 Mg Tablet PO 40 mg Q12HR RYAN Administration Vitamin D 1,000 units 10/10/24 09:00 10/10/24 09:35 Cholecalciferol 1,000 Units Tablet PO 1,000 units DAILY RYAN Administration Radiology Results: ITS Impressions Chest X-Ray 10/09/24 09:14 IMPRESSION: 1. Small left pleural effusion with mild left basilar opacities which could represent associated atelectasis or pneumonia. Renal Ultrasound 10/09/24 14:29 IMPRESSION: 1. Mild left hydronephrosis. Abdomen/Pelvis CT 10/09/24 20:32 IMPRESSION: Left-sided hydroureteronephrosis without a clear source of obstruction. Additional findings consistent with emphysematous cystitis. ADDENDUM: 10/09/[id number] These findings were discussed with Varsha Phipps APRN at 9:00 PM on 10/09/2024 Labs Labs: Laboratory Results - last 24 hr 10/09/24 10/09/24 10/09/24 16:28 16:32 17:54 WBC RBC Hgb Hct MCV MCH MCHC RDW Plt Count MPV Immature Gran % (Auto) Neut % (Auto) Lymph % (Auto) [place] % (Auto) Eos % (Auto) Baso % (Auto) Lymph # (Auto) [place] # (Auto) Eos # (Auto) Baso # (Auto) Abs Immat Gran (auto) Absolute Neuts (auto) Absolute Nucleated RBC Total Counted Neutrophils % (Manual) Band Neutrophils % Lymphocytes % (Manual) Monocytes % (Manual) Nucleated RBC % Abs Neuts (Manual) Abs Lymphs (Manual) Abs Monocytes (Manual) Platelet Estimate % Immature Plt Fraction Schistocytes Sodium Potassium Chloride Carbon Dioxide Anion Gap BUN Creatinine Estim Creat Clear Calc Estimated GFR Glucose POC Capillary Glucose 167 H Lactic Acid 3.7 H Calcium Total Bilirubin AST ALT Alkaline Phosphatase Total Protein Albumin Procalcitonin > 100.0 Nasal MRSA (PCR) Not detected 10/09/24 10/10/24 10/10/24 19:37 04:44 07:26 WBC RBC Hgb Hct MCV MCH MCHC RDW Plt Count MPV Immature Gran % (Auto) Neut % (Auto) Lymph % (Auto) [place] % (Auto) Eos % (Auto) Baso % (Auto) Lymph # (Auto) [place] # (Auto) Eos # (Auto) Baso # (Auto) Abs Immat Gran (auto) Absolute Neuts (auto) Absolute Nucleated RBC Total Counted Neutrophils % (Manual) Band Neutrophils % Lymphocytes % (Manual) Monocytes % (Manual) Nucleated RBC % Abs Neuts (Manual) Abs Lymphs (Manual) Abs Monocytes (Manual) Platelet Estimate % Immature Plt Fraction Schistocytes Sodium 134 L Potassium 5.3 H Chloride 105 Carbon Dioxide 19 L Anion Gap 10 BUN 83 H Creatinine 2.70 H Estim Creat Clear Calc 13 Estimated GFR 17 L Glucose 157 H POC Capillary Glucose 180 H 177 H Lactic Acid Calcium 8.1 L Total Bilirubin 0.6 AST 150 H ALT 90 H Alkaline Phosphatase 72 Total Protein 6.0 L Albumin 3.1 L Procalcitonin Nasal MRSA (PCR) 10/10/24 10/10/24 08:51 11:46 WBC 12.1 H RBC 3.98 L Hgb 11.8 L Hct 35.3 L MCV 88.7 MCH 29.6 MCHC 33.4 RDW 15.7 H Plt Count 97 L MPV 10.8 H Immature Gran % (Auto) Not Reportable Neut % (Auto) Not Reportable Lymph % (Auto) Not Reportable [place] % (Auto) Not Reportable Eos % (Auto) Not Reportable Baso % (Auto) Not Reportable Lymph # (Auto) Not Reportable [place] # (Auto) Not Reportable Eos # (Auto) Not Reportable Baso # (Auto) Not Reportable Abs Immat Gran (auto) Not Reportable Absolute Neuts (auto) Not Reportable Absolute Nucleated RBC Not Reportable Total Counted 100 Neutrophils % (Manual) 84 H Band Neutrophils % 11 H Lymphocytes % (Manual) 3 L Monocytes % (Manual) 2 L Nucleated RBC % Not Reportable Abs Neuts (Manual) 11.49 H Abs Lymphs (Manual) 0.36 L Abs Monocytes (Manual) 0.24 Platelet Estimate Decreased % Immature Plt Fraction 3.8 Schistocytes None seen Sodium Potassium Chloride Carbon Dioxide Anion Gap BUN Creatinine Estim Creat Clear Calc Estimated GFR Glucose POC Capillary Glucose 153 H Lactic Acid Calcium Total Bilirubin AST ALT Alkaline Phosphatase Total Protein Albumin Procalcitonin Nasal MRSA (PCR) Quality VTE Prophylaxis VTE prophylaxis: mechanical ordered
[2024-10-10 16:02] LABS: Glucose Point of Care 245 mg/dl (65-105)
--- NOTE | 2024-10-10 16:49 | P.CONUR_ITS ---
Assessment and Plan Assessment and plan (1) Emphysematous cystitis: Code(s): N30.80 - Other cystitis without hematuria Status: Acute (2) Hydronephrosis, left: Code(s): N13.30 - Unspecified hydronephrosis Status: Acute Assessment and Plan: * Gas-forming UTI/emphysematous cystitis should require no special attention other than broad-spectrum antibiotics pending identification the urinary tract pathogens. I would recommend leaving an indwelling catheter in till she is ready for discharge so as to maximize bladder drainage * I suspect mild left hydronephrosis results from relative obstruction of her distal left ureter at the bladder wall that is thickened by cystitis. I would anticipate that this obstruction in her serum creatinine was slowly improved with antibiotic therapy. I will not plan stent placement unless her renal function regresses Urology Consult Note HPI Date Seen: 10/10/24 Requesting Physician: Stephanie Levi MD Primary Care Provider: Nohemy Rogers MD Consult Narrative Narrative: Florence Barba is a 79 year old female previously unknown to our practice who is admitted with generalized weakness. During the course of evaluation she is b een found to have a probable [address] imaging demonstrates some gas in her bladder and perhaps a small amount in her bladder we, suggesting a gas-forming urinary tract infection and possible emphysematous cystitis. Patient has no known history of recurrent urinary tract infection pyelonephritis or other significant urological issues. In addition to the gas in her bladder she has scant left hydronephrosis with dilatation of her ureter to the ureterovesical junction. There was no apparent ureteral stones Review of Systems Review of Systems: ROS unobtainable: Yes unobtainable due to mental status PMFSH Past Medical History Medical History Anxiety and depression Arthritis Debility Diabetic neuropathy associated with diabetes mellitus due to underlying condition with A1C 7.5% 04/03/2024 Diabetic peripheral neuropathy Endometrial cancer (2009) s/p hysterectomy and radiation Essential (primary) hypertension Family history of colon cancer in father Foot drop, left Gastric ulcer Helicobacter pylori gastritis History of stroke with residual deficit (~01/2018) left sided weakness Hyperlipidemia, unspecified Ileus, postoperative Major depressive disorder, single episode, unspecified NSAID long-term use Renal and ureteric calculus (06/2021) Type 2 diabetes, uncontrolled, with neuropathy With A1c 04/03/2024 7.5% Vertigo Vitamin D deficiency Surgical History Surgical History History of cholecystectomy History of hysterectomy History of total right knee replacement (2009) Family History Family History Father Family history of malignant neoplasm Hypertension Carcinoma of colon Family history of diabetes mellitus in first degree relative Mother Hypertension Cerebrovascular accident Sibling Hypertension Diabetes mellitus Cerebrovascular accident Other Family history of cardiovascular disease Social History Social History Social History: The patient lives at home with a nephew and his girlfriend. She is a lifelong nonsmoker and does not drink alcohol or use illicit substances. She had 1 son who an accidental . Code status: Full code Surrogate decision maker: Katiegill Rodriguez (sister) Smoking status: Never smoker Alcohol intake: never Substance use: never Substance use type: does not use Do You Feel Safe in your Home?: Yes Lack of Transportation: No Lack of Food: Never True Current Housing: I Have Housing Concerned About Future Housing: No Difficulty Paying Gas/Electric Bills: No Difficulty Paying for Meds: No Currently Unemployed: No Education: High School Diploma/GED Difficulty w/ Childcare or Family Care: No Living arrangements: with family Gender identity (if verbalized by the patient): Female Sexual Orientation (if Verbalized by the Patient): Straight or Heterosexual Spiritual care concerns: No Meds Home Medications and Allergies Home Medications Medication Instructions Recorded Confirmed Type ferrous sulfate 325 mg (65 mg 325 mg PO DAILY 10/11/19 10/09/24 History iron) tablet [id number] 8 mg-folic 400 1 tablet PO DAILY 11/25/21 10/09/24 History mcg-K 50 mcg-lutein 300 mcg tablet (Centrum Silver Women) aspirin 81 mg tablet 81 mg PO DAILY 12/16/21 10/09/24 History amlodipine 10 mg tablet 10 mg PO DAILY #90 tabs 03/27/24 10/09/24 Rx cholecalciferol (vitamin D3) 125 125 mcg PO DAILY 04/03/24 10/09/24 History mcg (5,000 unit) capsule ascorbic acid (vitamin C) 500 mg 1,000 mg PO DAILY 30 days #60 tabs 04/14/24 10/09/24 Rx tablet (Vitamin C) docusate sodium 100 mg capsule 100 mg PO DAILY 30 days #30 caps 04/14/24 10/09/24 Rx pantoprazole 40 mg tablet,delayed 40 mg PO Q12H 30 days #60 tabs 04/14/24 10/09/24 Rx release fluoxetine 40 mg capsule 40 mg PO DAILY 07/23/24 10/09/24 History lisinopril 40 mg tablet 40 mg PO DAILY 07/23/24 10/09/24 History atorvastatin 40 mg tablet 40 mg PO QHS #90 tabs 08/20/24 10/09/24 Rx pen needle, diabetic 32 gauge x #100 ea 09/03/24 10/09/24 Rx 1/4 (BD Ultra-Fine Micro Pen Needle) insulin glargine 100 unit/mL (3 15 unit subcut QHS 10/09/24 10/09/24 History mL) subcutaneous pen (Basaglar KwikPen U-100 Insulin) insulin lispro 100 unit/mL 3 unit subcut TIDWM 10/09/24 10/09/24 History subcutaneous solution Allergies Allergy/AdvReac Type Severity Reaction Status Date / Time morphine AdvReac Unknown Nausea and Verified 07/23/24 14:51 Vomiting Vital Signs Vital Signs - 24 hr 10/09/24 18:00 10/09/24 20:09 10/09/24 20:00 Temperature 97.6 F Pulse Rate 88 85 85 Respiratory Rate 23 H 23 H Blood Pressure 138/60 Pulse Oximetry 100 100 Oxygen Delivery Room Air 10/09/24 20:00 10/09/24 22:00 10/09/24 23:38 Temperature 97.8 F Pulse Rate 85 82 89 Respiratory Rate 22 H Blood Pressure 150/71 H Pulse Oximetry 98 Oxygen Delivery 10/09/24 23:40 10/09/24 23:40 10/10/24 02:00 Temperature Pulse Rate 90 90 96 Respiratory Rate 22 H Blood Pressure Pulse Oximetry 98 Oxygen Delivery Room Air 10/10/24 03:45 10/10/24 04:00 10/10/24 04:00 Temperature 98.4 F Pulse Rate 65 86 86 Respiratory Rate 22 H 22 H Blood Pressure 147/64 H Pulse Oximetry 97 97 Oxygen Delivery Room Air 10/10/24 05:44 10/10/24 07:27 10/10/24 08:51 Temperature 98.3 F Pulse Rate 84 83 Respiratory Rate 28 H Blood Pressure 150/76 H Pulse Oximetry 95 95 Oxygen Delivery Room Air 10/10/24 11:44 10/10/24 11:55 10/10/24 15:48 Temperature 98.6 F 98.4 F Pulse Rate 93 77 Respiratory Rate 32 H 32 H Blood Pressure 99/57 L 108/53 L 134/60 Pulse Oximetry 95 93 Oxygen Delivery Exam Const: General: no acute distress Resp: Effort & Inspection: normal respiratory effort GI: Inspection: non-distended GI Palp: No abdominal tenderness and No Guarding due to palpation present (GI) Auscultation: normal bowel sounds Results Labs 10/10/24 08:51 10/10/24 04:44 Labs: Short CBC 10/10/24 Range/Units 08:51 WBC 12.1 H (4.5-10.0) K/mm3 Hgb 11.8 L (12.0-15.0) g/dL Hct 35.3 L (37.0-47.0) % Plt Count 97 L (150-375) k/mm3 BMP 10/10/24 04:44 Sodium 134 L Potassium 5.3 H Chloride 105 Carbon Dioxide 19 L BUN 83 H Creatinine 2.70 H Glucose 157 H Calcium 8.1 L Liver Function 10/10/24 Range/Units 04:44 Total Bilirubin 0.6 (0.2-1.3) mg/dL AST 150 H (14-36) U/L ALT 90 H (6-35) U/L Alkaline Phosphatase 72 (38-126) U/L Albumin 3.1 L (3.5-5.1) g/dL
[2024-10-10] MEDS: INSULIN ASPART (*BKC) 100 UNITS/ML SUB-Q ×2 (17:19→17:20)
[2024-10-10 19:38] LABS: Lactic Acid Reflex 1.2 mmol/L (0.7-2.0)
[2024-10-10 20:00] LABS: Glucose Point of Care 158 mg/dl (65-105)
[2024-10-10] MEDS: ATORVASTATIN 40 MG TABLET PO (21:44)
[2024-10-10] MEDS: INSULIN GLARGINE (*BKC) 100 UNITS/ML 15 UNITS SUB-Q (21:44)
[2024-10-11] VITALS (11 sets, daily range): BP systolic 119–135; BP diastolic 45–63; PULSE 73–86; RESP 20–24; TEMP 36.4–37.2; O2SAT 93–100
[2024-10-11 05:09] LABS: Hematocrit 28.9 % (37.0-47.0); Hemoglobin 9.7 g/dL (12.0-15.0); Immature Platelet Fraction Pct 4.4 % (0.9-11.2); Mean Corpuscular HGB Conc 33.6 g/dl (32-36); Mean Corpuscular Hemoglobin 29.1 pg (26-34); Mean Corpuscular Volume 86.8 fl (80-100); Mean Platelet Volume 11.2 fl (7.4-10.4); Platelet Count Result 72 k/mm3 (150-375); Red Blood Count 3.33 M/mm3 (4.2-5.4); Red Cell Distribution Width 15.5 % (11.5-14.5)
[2024-10-11 05:21] LABS: Lactic Acid Reflex 1.1 mmol/L (0.7-2.0)
[2024-10-11 05:27] LABS: Alanine Aminotransferase 63 U/L (6-35); Albumin Level 2.8 g/dL (3.5-5.1); Alkaline Phosphatase 79 U/L (38-126); Anion Gap 7 mmol/L (4-12); Aspartate Amino Transferase 107 U/L (14-36); Bilirubin,Total 0.5 mg/dL (0.2-1.3); Blood Urea Nitrogen 68 mg/dL (7-17); Calcium 7.9 mg/dL (8.4-10.2); Carbon Dioxide 32 mmol/L (22-30); Chloride 95 mmol/L (98-107); Estimated CRCL calculation 17 ml/min; Estimated Glomerular Filt Rate 23; Glucose 170 mg/dL (65-110); Magnesium 2.2 mg/dL (1.6-2.3); Potassium 3.6 mmol/L (3.4-5.0); Sodium 134 mmol/L (137-145)
[2024-10-11 05:45] LABS: Total Cells Counted 100
[2024-10-11 05:46] LABS: Band Neutrophils Percent 9 % (0-6); Hypochromasia 1+; Lymphocytes Absolute Manual 0.52 K/mm3 (1.1-4.5); Lymphocytes Percent Manual 4 % (18-44); Monocytes Absolute Manual 0.39 K/mm3 (0.1-0.90); Monocytes Percent Manual 3 % (3-9); Neutrophils Absolute Manual 12.09 K/mm3 (1.7-7.2); Neutrophils Percent Manual 84 % (46-73); Platelet Estimate Decreased (Adequate); Schistocytes None Seen
--- NOTE | 2024-10-11 07:02 | P.PNUR_ITS ---
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 Subjective Subjective Date/Time Seen: 10/11/24 07:02 Interval history: Comfortable, no c/o pelvic pain, urine clear Review of Systems Cardiovascular: Cardiovascular: Denies chest pain, Denies lightheadedness, Denies palpitations and Denies dyspnea Respiratory: Respiratory: Denies dyspnea Gastrointestinal: Gastrointestinal: Denies diarrhea, Denies nausea and Denies vomiting Genitourinary: Genitourinary: Denies hematuria and Denies dysuria Endocrine: Endocrine: Denies palpitations Exam Const: General: no acute distress Resp: Effort & Inspection: normal respiratory effort GI: Inspection: non-distended GI Palp: No abdominal tenderness and No Guarding due to palpation present (GI) Auscultation: normal bowel sounds Urinary Catheter: Urinary Catheter: patent and draining and urine clear Objective Data Vital Signs Vital Signs: Vital Signs - 24 hr 10/10/24 07:27 10/10/24 08:51 10/10/24 11:44 Temperature 98.3 F 98.6 F Pulse Rate 83 93 Respiratory Rate 28 H 32 H Blood Pressure 150/76 H 99/57 L Pulse Oximetry 95 95 95 Oxygen Delivery Room Air 10/10/24 11:55 10/10/24 15:48 10/10/24 20:06 Temperature 98.4 F 98.6 F Pulse Rate 77 79 Respiratory Rate 32 H 20 Blood Pressure 108/53 L 134/60 155/90 H Pulse Oximetry 93 96 Oxygen Delivery 10/10/24 08:00 10/10/24 16:00 10/10/24 16:00 Temperature Pulse Rate 83 76 75 Respiratory Rate 20 20 Blood Pressure Pulse Oximetry 96 Oxygen Delivery Room Air Room Air 10/10/24 18:00 10/10/24 08:00 10/10/24 12:10 Temperature Pulse Rate 79 83 88 Respiratory Rate 20 Blood Pressure Pulse Oximetry 97 Oxygen Delivery Room Air 10/10/24 10:00 10/10/24 12:00 10/10/24 14:00 Temperature Pulse Rate 81 88 80 Respiratory Rate Blood Pressure Pulse Oximetry Oxygen Delivery 10/10/24 20:00 10/10/24 20:00 10/10/24 22:00 Temperature Pulse Rate 80 80 84 Respiratory Rate 20 Blood Pressure Pulse Oximetry 96 Oxygen Delivery Room Air 10/10/24 23:40 10/10/24 23:46 10/10/24 23:46 Temperature 98.7 F Pulse Rate 71 78 78 Respiratory Rate 20 20 Blood Pressure 151/91 H Pulse Oximetry 97 97 Oxygen Delivery Room Air 10/11/24 05:01 10/11/24 02:00 10/11/24 04:00 Temperature 98.9 F Pulse Rate 78 86 81 Respiratory Rate 20 20 Blood Pressure 129/51 L Pulse Oximetry 93 93 Oxygen Delivery Room Air 10/11/24 04:00 10/11/24 06:00 Temperature Pulse Rate 81 76 Respiratory Rate Blood Pressure Pulse Oximetry Oxygen Delivery Intake/Output Intake/Output: Intake & Output 10/08/24 10/09/24 10/10/24 10/11/24 23:59 23:59 23:59 23:59 Intake Total 2540 4916.7 550 Output Total 300 1950 1200 Balance 2240 2966.7 -650 Meds/Results Medications: Active Medications Generic Name Dose Route Start Last Admin Trade Name Freq PRN Reason Stop Dose Admin Acetaminophen 650 mg 10/09/24 15:44 Acetaminophen 325 Mg Tablet PO Q6H PRN Pain Rated 5 or Less, Fever Albuterol/Ipratropium 3 ml 10/09/24 14:33 Ipratropium 0.5 Mg/Albuterol Sulfate 2.5 Mg Ampul.Neb 3 Ml NEBULIZE Q6HRT PRN Shortness Of Breath Or Wheezing Ascorbic Acid 1,000 mg 10/10/24 09:00 10/10/24 12:28 Ascorbic Acid 500 Mg Tablet PO 1,000 mg DAILY RYAN Administration Aspirin 81 mg 10/10/24 09:00 10/10/24 09:38 Aspirin 81 Mg Enteric Tablet PO 11/09/24 08:59 81 mg DAILY RYAN Administration Atorvastatin Calcium 40 mg 10/09/24 21:00 10/10/24 21:44 Atorvastatin 40 Mg Tablet PO 40 mg QHS RYAN Administration Benzocaine 1 lozenge 10/09/24 14:33 Benzocaine/Menthol (*Bkc) 18 Ea Lozenge PO PRN PRN Sore Throat Benzonatate 100 mg 10/09/24 14:33 Benzonatate 100 Mg Capsule PO TID PRN Cough Dextrose 12.5 gm 10/09/24 13:29 Dextrose 50% 25 Gm/50 Ml Syringe IV PUSH PRN PRN Hypoglycemia Protocol Docusate Sodium 100 mg 10/10/24 09:00 10/10/24 12:27 Docusate Sodium 100 Mg Capsule PO Not Given DAILY RYAN Fentanyl Citrate 25 mcg 10/09/24 15:44 Fentanyl Citrate Inj (*Crx) 100 Mcg/2 Ml Vial IV PUSH Q4H PRN Pain Rated 6 or Greater Ferrous Sulfate 325 mg 10/10/24 09:00 10/10/24 12:28 Ferrous Sulfate [address] PO 11/09/24 08:59 325 mg DAILY RYAN Administration Fluoxetine HCl 40 mg 10/10/24 09:00 10/10/24 09:35 Fluoxetine Hcl 20 Mg Capsule PO 40 mg DAILY RYAN Administration Glucagon 1 mg 10/09/24 13:29 Glucagon For Inj 1 Mg Vial IM PRN PRN Hypoglycemia Protocol Glucose 15 gm 10/09/24 13:29 Glucose Oral Gel 15 Gm Of Glucse In 37.5 Gm Tube PO PRN PRN Hypoglycemia Protocol Guaifenesin 600 mg 10/09/24 15:00 10/10/24 21:44 Guaifenesin 12 Hr 600 Mg Tabcr PO 600 mg Q12HR RYAN Administration Heparin Sodium (Porcine) 5,000 units 10/10/24 22:00 Heparin Sodium 5,000 Units/Ml Vial SUB-Q Q8HR RYAN Azithromycin 500 mg in 250 mls @ 250 mls/hr 10/10/24 09:00 10/10/24 11:00 Zithromax IVPB Infused Q24H RYAN Infusion Dextrose 1,000 mls @ 100 mls/hr 10/09/24 13:29 Dextrose 5% 1,000 Ml IVPB PRN PRN Hypoglycemia Protocol Sodium Bicarbonate 150 meq/ 1,100 mls @ 100 mls/hr 10/09/24 22:00 10/10/24 23:00 Dextrose IV CONT 100 mls/hr .Q11H RYAN Administration Ceftriaxone Sodium 2 gm in 100 mls @ 200 mls/hr 10/11/24 09:00 Rocephin 2 Gm/Ns 100 Ml IVPB DAILY [facility] Insulin Aspart 3 - 6 units 10/09/24 17:00 10/10/24 17:20 Insulin Aspart (*Bkc) 100 Units/Ml SUB-Q 3 units TIDWM RYAN Administration Protocol Insulin Aspart 3 units 10/09/24 17:00 10/10/24 17:19 Insulin Aspart (*Bkc) 100 Units/Ml SUB-Q 11/08/24 16:59 3 units TIDWM RYAN Administration Insulin Glargine 15 units 10/09/24 21:00 10/10/24 21:44 Insulin Glargine (*Bkc) 100 Units/Ml SUB-Q 15 units QHS RYAN Administration Multivitamins/Calcium 1 tablet 10/10/24 09:00 10/10/24 12:24 Therapeutic Multivitamins/Minerals Tab (*Bkc) PO 1 tablet DAILY RYAN Administration Ondansetron HCl 4 mg 10/09/24 09:54 10/09/24 18:13 Ondansetron Inj 4 Mg/2 Ml Vial IV PUSH 4 mg Q4H PRN Administration Nausea Pantoprazole Sodium 40 mg 10/09/24 21:00 10/10/24 21:44 Pantoprazole 40 Mg Tablet PO 40 mg Q12HR RYAN Administration Vitamin D 1,000 units 10/10/24 09:00 10/10/24 09:35 Cholecalciferol 1,000 Units Tablet PO 1,000 units DAILY RYAN Administration Radiology Results: ITS Impressions Chest X-Ray 10/09/24 09:14 IMPRESSION: 1. Small left pleural effusion with mild left basilar opacities which could represent associated atelectasis or pneumonia. Renal Ultrasound 10/09/24 14:29 IMPRESSION: 1. Mild left hydronephrosis. Abdomen/Pelvis CT 10/09/24 20:32 IMPRESSION: Left-sided hydroureteronephrosis without a clear source of obstruction. Additional findings consistent with emphysematous cystitis. ADDENDUM: [id number]/09/[id number] These findings were discussed with Varsha Phipps APRN at 9:00 PM on 10/09/2024 Labs Labs: Laboratory Results - last 24 hr 10/10/24 10/10/24 10/10/24 07:26 08:51 11:46 WBC 12.1 H RBC 3.98 L Hgb 11.8 L Hct 35.3 L MCV 88.7 MCH 29.6 MCHC 33.4 RDW 15.7 H Plt Count 97 L MPV 10.8 H Immature Gran % (Auto) Not Reportable Neut % (Auto) Not Reportable Lymph % (Auto) Not Reportable [place] % (Auto) Not Reportable Eos % (Auto) Not Reportable Baso % (Auto) Not Reportable Lymph # (Auto) Not Reportable [place] # (Auto) Not Reportable Eos # (Auto) Not Reportable Baso # (Auto) Not Reportable Abs Immat Gran (auto) Not Reportable Absolute Neuts (auto) Not Reportable Absolute Nucleated RBC Not Reportable Total Counted 100 Neutrophils % (Manual) 84 H Band Neutrophils % 11 H Lymphocytes % (Manual) 3 L Monocytes % (Manual) 2 L Nucleated RBC % Not Reportable Abs Neuts (Manual) 11.49 H Abs Lymphs (Manual) 0.36 L Abs Monocytes (Manual) 0.24 Platelet Estimate Decreased % Immature Plt Fraction 3.8 Hypochromasia Schistocytes None seen Sodium Potassium Chloride Carbon Dioxide Anion Gap BUN Creatinine Estim Creat Clear Calc Estimated GFR Glucose POC Capillary Glucose 177 H 153 H Lactic Acid Calcium Magnesium Total Bilirubin AST ALT Alkaline Phosphatase Total Protein Albumin 10/10/24 10/10/24 10/10/24 15:55 16:32 19:56 WBC RBC Hgb Hct MCV MCH MCHC RDW Plt Count MPV Immature Gran % (Auto) Neut % (Auto) Lymph % (Auto) [place] % (Auto) Eos % (Auto) Baso % (Auto) Lymph # (Auto) [place] # (Auto) Eos # (Auto) Baso # (Auto) Abs Immat Gran (auto) Absolute Neuts (auto) Absolute Nucleated RBC Total Counted Neutrophils % (Manual) Band Neutrophils % Lymphocytes % (Manual) Monocytes % (Manual) Nucleated RBC % Abs Neuts (Manual) Abs Lymphs (Manual) Abs Monocytes (Manual) Platelet Estimate % Immature Plt Fraction Hypochromasia Schistocytes Sodium Potassium Chloride Carbon Dioxide Anion Gap BUN Creatinine Estim Creat Clear Calc Estimated GFR Glucose POC Capillary Glucose 245 H 158 H Lactic Acid 1.2 Calcium Magnesium Total Bilirubin AST ALT Alkaline Phosphatase Total Protein Albumin 10/11/24 04:55 WBC 13.0 H RBC 3.33 L Hgb 9.7 L Hct 28.9 L MCV 86.8 MCH 29.1 MCHC 33.6 RDW 15.5 H Plt Count 72 L MPV 11.2 H Immature Gran % (Auto) Not Reportable Neut % (Auto) Not Reportable Lymph % (Auto) Not Reportable [place] % (Auto) Not Reportable Eos % (Auto) Not Reportable Baso % (Auto) Not Reportable Lymph # (Auto) Not Reportable [place] # (Auto) Not Reportable Eos # (Auto) Not Reportable Baso # (Auto) Not Reportable Abs Immat Gran (auto) Not Reportable Absolute Neuts (auto) Not Reportable Absolute Nucleated RBC Not Reportable Total Counted 100 Neutrophils % (Manual) 84 H Band Neutrophils % 9 H Lymphocytes % (Manual) 4 L Monocytes % (Manual) 3 Nucleated RBC % Not Reportable Abs Neuts (Manual) 12.09 H Abs Lymphs (Manual) 0.52 L Abs Monocytes (Manual) 0.39 Platelet Estimate Decreased % Immature Plt Fraction 4.4 Hypochromasia 1+ Schistocytes None seen Sodium 134 L Potassium 3.6 Chloride 95 L Carbon Dioxide 32 H Anion Gap 7 BUN 68 H D Creatinine 2.10 H Estim Creat Clear Calc 17 Estimated GFR 23 L Glucose 170 H POC Capillary Glucose Lactic Acid 1.1 Calcium 7.9 L Magnesium 2.2 Total Bilirubin 0.5 AST 107 H ALT 63 H Alkaline Phosphatase 79 Total Protein 6.0 L Albumin 2.8 L
[2024-10-11] MEDS: AZITHROMYCIN 500 MG/NS 250 ML 500 MG/250 ML BAG 250 MG IVPB (07:40)
[2024-10-11 07:51] LABS: Glucose Point of Care 179 mg/dl (65-105)
[2024-10-11] MEDS: ACETAMINOPHEN 325 MG TABLET 650 MG PO (08:38)
[2024-10-11] MEDS: SODIUM BICARBONATE 8.4% 150 MEQ in DEXTROSE 5% 1,000 ML 950 ML 100 MEQ IV CONT (08:39)
[2024-10-11] MEDS: cefTRIAXone 2 GM/NS 100 ML 2 GM/100 ML BAG IVPB (08:42)
[2024-10-11] MEDS: INSULIN ASPART (*BKC) 100 UNITS/ML SUB-Q ×3 (08:58→17:51)
[2024-10-11] MEDS: CHOLECALCIFEROL 1,000 UNITS TABLET 1000 UNITS PO (08:59)
[2024-10-11] MEDS: FERROUS SULFATE 325 MG TABLET DR PO (08:59)
[2024-10-11] MEDS: guaiFENesin 12 HR 600 MG TABCR PO ×2 (08:59→21:45)
[2024-10-11] MEDS: ASCORBIC ACID 500 MG TABLET 1000 MG PO (08:59)
[2024-10-11] MEDS: FLUoxetine HCL 20 MG CAPSULE 40 MG PO (08:59)
[2024-10-11] MEDS: ASPIRIN 81 MG ENTERIC TABLET PO (08:59)
[2024-10-11] MEDS: DOCUSATE SODIUM 100 MG CAPSULE PO (08:59)
[2024-10-11] MEDS: PANTOPRAZOLE 40 MG TABLET PO ×2 (08:59→21:45)
[2024-10-11] MEDS: THERAPEUTIC MULTIVITAMINS/MINERALS TAB (*BKC) 1 TABLET PO (09:00)
[2024-10-11 11:52] LABS: Glucose Point of Care 159 mg/dl (65-105)
--- NOTE | 2024-10-11 13:20 | PM.IMPN ---
Progress Note: A&P Assessment and Plan (1) Sepsis: Qualifiers: Sepsis acute organ dysfunction status: unspecified Sepsis type: sepsis due to unspecified organism Qualified Code(s): A41.9 - Sepsis, unspecified organism Code(s): A41.9 - Sepsis, unspecified organism Status: Acute Assessment and Plan: resolving WBC 12 from 37.2 on admission, HR wnl, and continue IVF and monitor lactic acid - suspected source: pneumonia and UTI on ceftriaxone and azithromycin on 10/09 blood culture positive for GNR (2) Acute UTI: Code(s): N39.0 - Urinary tract infection, site not specified Status: Acute Assessment and Plan: f/u urine culture which is Gram-negative bacilli likely E coli Continue Rocephin and IVF . (3) Pneumonia: Qualifiers: Pneumonia type: due to unspecified organism Laterality: left Lung location: lower lobe of lung Qualified Code(s): J18.9 - Pneumonia, unspecified organism Code(s): J18.9 - Pneumonia, unspecified organism Status: Suspected Assessment and Plan: - CXR: small left pleural effusion with mild left basilar opacities which could represent associated atelectasis or pneumonia. MRSA negative Continue Rocephin and Azithromycin (4) JEFFERY (acute kidney injury): Code(s): N17.9 - Acute kidney failure, unspecified Status: Acute Assessment and Plan: - creatinine 3.5 and GFR 13, previously 1.1 and GFR 48 on admission - renal ultrasound: mild left hydronephrosis monitor Is and Os Creatinine continues to improve continue IVF Urology consulted for left hydronephrosis Clements catheter placed Suspected to improve with this (5) Type 2 diabetes mellitus with hyperglycemia, with long-term current use of insulin: Code(s): E11.65 - Type 2 diabetes mellitus with hyperglycemia; Z79.4 - local [employer] (current) use of insulin Status: Chronic Assessment and Plan: - hypoglycemia protocol - POC blood glucose ACHS - home medication: continue Lantus 15 units HS and Lispro 3 units TIDWM - correct regimen ordered - moderate dose TIDWM, based off BMI - A1C 7.1% on 09/05/2024 (6) Essential (primary) hypertension: Code(s): I10 - Essential (primary) hypertension Status: Chronic Assessment and Plan: - chronic, currently 127/51 - home medications: will hold amlodipine 10 mg daily, lisinopril 40 mg daily - monitor Plan Thrombocytopenia: Likely due to sepsis. Will continue to monitor heparin on hold E coli bacteremia Likely from UTI continue Monitoring blood cultures and awaitin speciation and sensitivity repeat blood culture today continue abx above Diet: Diabetic GI Prophylaxis: Continue home pantoprazole DVT Prophylaxis: Sq heparin on hold due to thrombocytopenia Lines: Peripheral Code Status: Full code Subjective Date/time seen: 10/11/24 13:20 Interval history: No overnight events. No new complaints. Feels weak. Still nauseated. Abdomen is sore. Review of Systems Review of Systems: All systems reviewed & are unremarkable except as noted in HPI and below Exam Narrative: APPEARANCE: Ill-appearing not in acute distress HEAD: normocephalic, atraumatic. EYES: PERRLA/EOMI, conjunctivae clear. NECK: Supple. No adenopathy, no masses. RESPIRATORY: Airway patent, respirations nonlabored. Clear to auscultation bilaterally, no rales, rhonchi, wheezing. CARDIOVASCULAR: Regular rate and rhythm without murmurs rubs or gallops. ABDOMINAL: Soft tender suprapubic area no distension MUSCULOSKELETAL: Moves all extremities. Strength/ROM intact, No edema, No calf tenderness. NEURO: Alert. 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 Normal Color Objective Data Vital Signs Vital Signs: Vital Signs - 24 hr 10/10/24 15:48 10/10/24 20:06 10/10/24 16:00 Temperature 98.4 F 98.6 F Pulse Rate 77 79 76 Respiratory Rate 32 H 20 Blood Pressure 134/60 155/90 H Pulse Oximetry 93 96 Oxygen Delivery 10/10/24 16:00 10/10/24 18:00 10/10/24 14:00 Temperature Pulse Rate 75 79 80 Respiratory Rate 20 Blood Pressure Pulse Oximetry Oxygen Delivery Room Air 10/10/24 20:00 10/10/24 20:00 10/10/24 22:00 Temperature Pulse Rate 80 80 84 Respiratory Rate 20 Blood Pressure Pulse Oximetry 96 Oxygen Delivery Room Air 10/10/24 23:40 10/10/24 23:46 10/10/24 23:46 Temperature 98.7 F Pulse Rate 71 78 78 Respiratory Rate 20 20 Blood Pressure 151/91 H Pulse Oximetry 97 97 Oxygen Delivery Room Air 10/11/24 05:01 10/11/24 02:00 10/11/24 04:00 Temperature 98.9 F Pulse Rate 78 86 81 Respiratory Rate 20 20 Blood Pressure 129/51 L Pulse Oximetry 93 93 Oxygen Delivery Room Air 10/11/24 04:00 10/11/24 06:00 10/11/24 07:18 Temperature 98.7 F Pulse Rate 81 76 82 Respiratory Rate 24 H Blood Pressure 135/61 Pulse Oximetry 93 Oxygen Delivery 10/11/24 08:00 10/11/24 08:00 10/11/24 10:00 Temperature Pulse Rate 76 82 Respiratory Rate Blood Pressure Pulse Oximetry 93 Oxygen Delivery Room Air 10/11/24 11:34 Temperature 98.2 F Pulse Rate 78 Respiratory Rate 24 H Blood Pressure 119/53 L Pulse Oximetry 93 Oxygen Delivery Intake/Output Intake/Output: Intake & Output 10/08/24 10/09/24 10/10/24 10/11/24 23:59 23:59 23:59 23:59 Intake Total 2540 4916.7 2235 Output Total 300 1950 1200 Balance 2240 2966.7 1035 Meds/Results Medications: Active Medications Generic Name Dose Route Start Last Admin Trade Name Freq PRN Reason Stop Dose Admin Acetaminophen 650 mg 10/09/24 15:44 10/11/24 08:38 Acetaminophen 325 Mg Tablet PO 650 mg Q6H PRN Administration Pain Rated 5 or Less, Fever Albuterol/Ipratropium 3 ml 10/09/24 14:33 Ipratropium 0.5 Mg/Albuterol Sulfate 2.5 Mg Ampul.Neb 3 Ml NEBULIZE Q6HRT PRN Shortness Of Breath Or Wheezing Ascorbic Acid 1,000 mg 10/10/24 09:00 10/11/24 08:59 Ascorbic Acid 500 Mg Tablet PO 1,000 mg DAILY RYAN Administration Aspirin 81 mg 10/10/24 09:00 10/11/24 08:59 Aspirin 81 Mg Enteric Tablet PO 11/09/24 08:59 81 mg DAILY RYAN Administration Atorvastatin Calcium 40 mg 10/09/24 21:00 10/10/24 21:44 Atorvastatin 40 Mg Tablet PO 40 mg QHS RYAN Administration Benzocaine 1 lozenge 10/09/24 14:33 Benzocaine/Menthol (*Bkc) 18 Ea Lozenge PO PRN PRN Sore Throat Benzonatate 100 mg 10/09/24 14:33 Benzonatate 100 Mg Capsule PO TID PRN Cough Dextrose 12.5 gm 10/09/24 13:29 Dextrose 50% 25 Gm/50 Ml Syringe IV PUSH PRN PRN Hypoglycemia Protocol Docusate Sodium 100 mg 10/10/24 09:00 10/11/24 08:59 Docusate Sodium 100 Mg Capsule PO 100 mg DAILY RYAN Administration Fentanyl Citrate 25 mcg 10/09/24 15:44 Fentanyl Citrate Inj (*Crx) 100 Mcg/2 Ml Vial IV PUSH Q4H PRN Pain Rated 6 or Greater Ferrous Sulfate 325 mg 10/10/24 09:00 10/11/24 08:59 Ferrous Sulfate [address] PO 11/09/24 08:59 325 mg DAILY RYAN Administration Fluoxetine HCl 40 mg 10/10/24 09:00 10/11/24 08:59 Fluoxetine Hcl 20 Mg Capsule PO 40 mg DAILY RYAN Administration Glucagon 1 mg 10/09/24 13:29 Glucagon For Inj 1 Mg Vial IM PRN PRN Hypoglycemia Protocol Glucose 15 gm 10/09/24 13:29 Glucose Oral Gel 15 Gm Of Glucse In 37.5 Gm Tube PO PRN PRN Hypoglycemia Protocol Guaifenesin 600 mg 10/09/24 15:00 10/11/24 08:59 Guaifenesin 12 Hr 600 Mg Tabcr PO 600 mg Q12HR RYAN Administration Heparin Sodium (Porcine) 5,000 units 10/10/24 22:00 Heparin Sodium 5,000 Units/Ml Vial SUB-Q Q8HR RYAN Azithromycin 500 mg in 250 mls @ 250 mls/hr 10/10/24 09:00 10/11/24 07:40 Zithromax IVPB 250 mls/hr Q24H RYAN Administration Dextrose 1,000 mls @ 100 mls/hr 10/09/24 13:29 Dextrose 5% 1,000 Ml IVPB PRN PRN Hypoglycemia Protocol Sodium Bicarbonate 150 meq/ 1,100 mls @ 100 mls/hr 10/09/24 22:00 10/11/24 08:39 Dextrose IV CONT 100 mls/hr .Q11H RYAN Administration Ceftriaxone Sodium 2 gm in 100 mls @ 200 mls/hr 10/11/24 09:00 10/11/24 08:42 Rocephin 2 Gm/Ns 100 Ml IVPB 200 mls/hr DAILY RYAN Administration Insulin Aspart 3 - 6 units 10/09/24 17:00 10/11/24 12:02 Insulin Aspart (*Bkc) 100 Units/Ml SUB-Q Not Given TIDWM [facility] Protocol Insulin Aspart 3 units 10/09/24 17:00 10/11/24 12:34 Insulin Aspart (*Bkc) 100 Units/Ml SUB-Q 11/08/24 16:59 3 units TIDWM RYAN Administration Insulin Glargine 15 units 10/09/24 21:00 10/10/24 21:44 Insulin Glargine (*Bkc) 100 Units/Ml SUB-Q 15 units QHS RYAN Administration Multivitamins/Calcium 1 tablet 10/10/24 09:00 10/11/24 09:00 Therapeutic Multivitamins/Minerals Tab (*Bkc) PO 1 tablet DAILY RYAN Administration Ondansetron HCl 4 mg 10/09/24 09:54 10/09/24 18:13 Ondansetron Inj 4 Mg/2 Ml Vial IV PUSH 4 mg Q4H PRN Administration Nausea Pantoprazole Sodium 40 mg 10/09/24 21:00 10/11/24 08:59 Pantoprazole 40 Mg Tablet PO 40 mg Q12HR RYAN Administration Vitamin D 1,000 units 10/10/24 09:00 10/11/24 08:59 Cholecalciferol 1,000 Units Tablet PO 1,000 units DAILY RYAN Administration Radiology Results: ITS Impressions Chest X-Ray 10/09/24 09:14 IMPRESSION: 1. Small left pleural effusion with mild left basilar opacities which could represent associated atelectasis or pneumonia. Renal Ultrasound 10/09/24 14:29 IMPRESSION: 1. Mild left hydronephrosis. Abdomen/Pelvis CT 10/09/24 20:32 IMPRESSION: Left-sided hydroureteronephrosis without a clear source of obstruction. Additional findings consistent with emphysematous cystitis. ADDENDUM: 10/09/242103 These findings were discussed with Varsha Phipps APRN at 9:00 PM on 10/09/2024 Labs Labs: Laboratory Results - last 24 hr 10/10/24 10/10/24 10/10/24 15:55 16:32 19:56 WBC RBC Hgb Hct MCV MCH MCHC RDW Plt Count MPV Immature Gran % (Auto) Neut % (Auto) Lymph % (Auto) [place] % (Auto) Eos % (Auto) Baso % (Auto) Lymph # (Auto) [place] # (Auto) Eos # (Auto) Baso # (Auto) Abs Immat Gran (auto) Absolute Neuts (auto) Absolute Nucleated RBC Total Counted Neutrophils % (Manual) Band Neutrophils % Lymphocytes % (Manual) Monocytes % (Manual) Nucleated RBC % Abs Neuts (Manual) Abs Lymphs (Manual) Abs Monocytes (Manual) Platelet Estimate % Immature Plt Fraction Hypochromasia Schistocytes Sodium Potassium Chloride Carbon Dioxide Anion Gap BUN Creatinine Estim Creat Clear Calc Estimated GFR Glucose POC Capillary Glucose 245 H 158 H Lactic Acid 1.2 Calcium Magnesium Total Bilirubin AST ALT Alkaline Phosphatase Total Protein Albumin 10/11/24 10/11/24 10/11/24 04:55 07:17 11:33 WBC 13.0 H RBC 3.33 L Hgb 9.7 L Hct 28.9 L MCV 86.8 MCH 29.1 MCHC 33.6 RDW 15.5 H Plt Count 72 L MPV 11.2 H Immature Gran % (Auto) Not Reportable Neut % (Auto) Not Reportable Lymph % (Auto) Not Reportable [place] % (Auto) Not Reportable Eos % (Auto) Not Reportable Baso % (Auto) Not Reportable Lymph # (Auto) Not Reportable [place] # (Auto) Not Reportable Eos # (Auto) Not Reportable Baso # (Auto) Not Reportable Abs Immat Gran (auto) Not Reportable Absolute Neuts (auto) Not Reportable Absolute Nucleated RBC Not Reportable Total Counted 100 Neutrophils % (Manual) 84 H Band Neutrophils % 9 H Lymphocytes % (Manual) 4 L Monocytes % (Manual) 3 Nucleated RBC % Not Reportable Abs Neuts (Manual) 12.09 H Abs Lymphs (Manual) 0.52 L Abs Monocytes (Manual) 0.39 Platelet Estimate Decreased % Immature Plt Fraction 4.4 Hypochromasia 1+ Schistocytes None seen Sodium 134 L Potassium 3.6 Chloride 95 L Carbon Dioxide 32 H Anion Gap 7 BUN 68 H D Creatinine 2.10 H Estim Creat Clear Calc 17 Estimated GFR 23 L Glucose 170 H POC Capillary Glucose 179 H 159 H Lactic Acid 1.1 Calcium 7.9 L Magnesium 2.2 Total Bilirubin 0.5 AST 107 H ALT 63 H Alkaline Phosphatase 79 Total Protein 6.0 L Albumin 2.8 L
[2024-10-11] MEDS: SODIUM CHLORIDE 0.9% IV 1,000 ML 75 ML IV CONT (14:25)
[2024-10-11 20:31] LABS: Glucose Point of Care 113 mg/dl (65-105)
[2024-10-11] MEDS: ATORVASTATIN 40 MG TABLET PO (21:45)
[2024-10-11] MEDS: INSULIN GLARGINE (*BKC) 100 UNITS/ML 15 UNITS SUB-Q (21:47)
[2024-10-12 00:10] VITALS: BP 139/65; PULSE 70; RESP 20; TEMP 36.5; O2SAT 96
[2024-10-12 01:15] LABS: Glucose Point of Care 120 mg/dl (65-105)
[2024-10-12] MEDS: SODIUM CHLORIDE 0.9% IV 1,000 ML 75 ML IV CONT ×2 (04:59→18:15)
[2024-10-12 05:57] LABS: Basophils Percent Auto 0.4 % (0.2-1.2); Eosinophils Absolute Auto 0.1 K/mm3 (0-0.3); Eosinophils Percent Auto 1.3 % (0-4.4); Hematocrit 29.3 % (37.0-47.0); Hemoglobin 9.4 g/dL (12.0-15.0); Immature Granulocyte Absolute 0.06 K/mm3 (0.00-0.031); Immature Granulocyte Percent A 0.6 % (0-0.5); Immature Platelet Fraction Pct 5.5 % (0.9-11.2); Lymphocytes Absolute Auto 0.75 K/mm3 (0.9-3.2); Lymphocytes Percent Auto 7.8 % (18.3-44.2); Mean Corpuscular HGB Conc 32.1 g/dl (32-36); Mean Corpuscular Hemoglobin 29.8 pg (26-34); Mean Platelet Volume 11.1 fl (7.4-10.4); Monocytes Absolute Auto 0.6 K/mm3 (0.1-0.6); Monocytes Percent Auto 6.4 % (2.6-8.5); Neutrophils Percent Auto 83.5 % (45.5-73.1); Platelet Count Result 71 k/mm3 (150-375); Red Blood Count 3.15 M/mm3 (4.2-5.4); Red Cell Distribution Width 15.8 % (11.5-14.5); White Blood Count 9.6 K/mm3 (4.5-10.0)
[2024-10-12 06:17] LABS: Alanine Aminotransferase 47 U/L (6-35); Albumin Level 2.6 g/dL (3.5-5.1); Alkaline Phosphatase 79 U/L (38-126); Anion Gap 6 mmol/L (4-12); Aspartate Amino Transferase 82 U/L (14-36); Bilirubin,Total 0.5 mg/dL (0.2-1.3); Blood Urea Nitrogen 59 mg/dL (7-17); Calcium 7.8 mg/dL (8.4-10.2); Carbon Dioxide 29 mmol/L (22-30); Chloride 98 mmol/L (98-107); Estimated CRCL calculation 23 ml/min; Estimated Glomerular Filt Rate 29; Glucose 80 mg/dL (65-110); Magnesium 2.3 mg/dL (1.6-2.3); Potassium 3.2 mmol/L (3.4-5.0); Sodium 133 mmol/L (137-145)
[2024-10-12 07:43] LABS: Glucose Point of Care 75 mg/dl (65-105)
[2024-10-12 07:45] VITALS: BP 145/61; PULSE 70; RESP 20; TEMP 36.4; O2SAT 96
[2024-10-12] MEDS: ACETAMINOPHEN 325 MG TABLET 650 MG PO (09:36)
[2024-10-12] MEDS: POTASSIUM CHLORIDE 20 MEQ ER TABLET 40 MEQ PO (09:36)
[2024-10-12] MEDS: THERAPEUTIC MULTIVITAMINS/MINERALS TAB (*BKC) 1 TABLET PO (09:37)
[2024-10-12] MEDS: FLUoxetine HCL 20 MG CAPSULE 40 MG PO (09:37)
[2024-10-12] MEDS: CHOLECALCIFEROL 1,000 UNITS TABLET 1000 UNITS PO (09:37)
[2024-10-12] MEDS: ASCORBIC ACID 500 MG TABLET 1000 MG PO (09:37)
[2024-10-12] MEDS: FERROUS SULFATE 325 MG TABLET DR PO (09:37)
[2024-10-12] MEDS: DOCUSATE SODIUM 100 MG CAPSULE PO (09:37)
[2024-10-12] MEDS: PANTOPRAZOLE 40 MG TABLET PO ×2 (09:37→21:18)
[2024-10-12] MEDS: guaiFENesin 12 HR 600 MG TABCR PO ×2 (09:37→21:19)
[2024-10-12] MEDS: ASPIRIN 81 MG ENTERIC TABLET PO (09:37)
[2024-10-12] MEDS: cefTRIAXone 2 GM/NS 100 ML 2 GM/100 ML BAG IVPB (09:40)
[2024-10-12] MEDS: ONDANSETRON INJ 4 MG/2 ML VIAL IV PUSH (09:58)
[2024-10-12] MEDS: AZITHROMYCIN 500 MG/NS 250 ML 500 MG/250 ML BAG 250 MG IVPB (10:30)
[2024-10-12 11:43] LABS: Glucose Point of Care 72 mg/dl (65-105)
--- NOTE | 2024-10-12 12:59 | PM.IMPN ---
Progress Note: A&P Assessment and Plan (1) Sepsis: Qualifiers: Sepsis acute organ dysfunction status: unspecified Sepsis type: sepsis due to unspecified organism Qualified Code(s): A41.9 - Sepsis, unspecified organism Code(s): A41.9 - Sepsis, unspecified organism Status: Acute Assessment and Plan: resolving WBC 12 from 37.2 on admission, HR wnl, and continue IVF and monitor lactic acid - suspected source: pneumonia and UTI on ceftriaxone and azithromycin on 10/09 blood culture positive for E coli (2) Acute UTI: Code(s): N39.0 - Urinary tract infection, site not specified Status: Acute Assessment and Plan: f/u urine culture which is Gram-negative bacilli likely E coli Continue Rocephin and IVF . (3) Pneumonia: Qualifiers: Pneumonia type: due to unspecified organism Laterality: left Lung location: lower lobe of lung Qualified Code(s): J18.9 - Pneumonia, unspecified organism Code(s): J18.9 - Pneumonia, unspecified organism Status: Suspected Assessment and Plan: - CXR: small left pleural effusion with mild left basilar opacities which could represent associated atelectasis or pneumonia. MRSA negative Continue Rocephin and Azithromycin (4) JEFFERY (acute kidney injury): Code(s): N17.9 - Acute kidney failure, unspecified Status: Acute Assessment and Plan: - creatinine 3.5 and GFR 13, previously 1.1 and GFR 48 on admission - renal ultrasound: mild left hydronephrosis monitor Is and Os Creatinine continues to improve continue IVF Urology consulted for left hydronephrosis Clements catheter placed Suspected to improve with this (5) Type 2 diabetes mellitus with hyperglycemia, with long-term current use of insulin: Code(s): E11.65 - Type 2 diabetes mellitus with hyperglycemia; Z79.4 - half-way (current) use of insulin Status: Chronic Assessment and Plan: - hypoglycemia protocol - POC blood glucose ACHS - home medication: continue Lantus 15 units HS and Lispro 3 units TIDWM - correct regimen ordered - moderate dose TIDWM, based off BMI - A1C 7.1% on 09/05/2024 (6) Essential (primary) hypertension: Code(s): I10 - Essential (primary) hypertension Status: Chronic Assessment and Plan: - home medications: will hold amlodipine 10 mg daily, lisinopril 40 mg daily - monitor Plan Thrombocytopenia: Likely due to sepsis. Will continue to monitor heparin on hold E coli bacteremia Likely from UTI continue Monitoring blood cultures. Sensitive to ceftriaxone. repeat blood culture continue abx above Diet: Diabetic GI Prophylaxis: Continue home pantoprazole DVT Prophylaxis: Sq heparin on hold due to thrombocytopenia Lines: Peripheral Code Status: Full code Subjective Date/time seen: 10/12/24 12:59 Interval history: No overnight events. Feels weak. Continues to report abdominal discomfort. Constipated Review of Systems Review of Systems: All systems reviewed & are unremarkable except as noted in HPI and below Exam Narrative: APPEARANCE: Ill-appearing not in acute distress HEAD: normocephalic, atraumatic. EYES: PERRLA/EOMI, conjunctivae clear. NECK: Supple. No adenopathy, no masses. RESPIRATORY: Airway patent, respirations nonlabored. Clear to auscultation bilaterally, no rales, rhonchi, wheezing. CARDIOVASCULAR: Regular rate and rhythm without murmurs rubs or gallops. ABDOMINAL: Soft tender suprapubic area no distension MUSCULOSKELETAL: Moves all extremities. Strength/ROM intact, No edema, No calf tenderness. NEURO: Alert. 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 Normal Color Objective Data Vital Signs Vital Signs: Vital Signs - 24 hr 10/11/24 15:29 10/11/24 20:19 10/11/24 20:00 Temperature 97.6 F 98.6 F Pulse Rate 81 73 Respiratory Rate 20 20 Blood Pressure 131/45 L 134/63 Pulse Oximetry 100 94 Oxygen Delivery Room Air 10/12/24 00:10 10/12/24 07:45 Temperature 97.7 F 97.5 F L Pulse Rate 70 70 Respiratory Rate 20 20 Blood Pressure 139/65 145/61 H Pulse Oximetry 96 96 Oxygen Delivery Intake/Output Intake/Output: Intake & Output 10/09/24 10/10/24 10/11/24 10/12/24 23:59 23:59 23:59 23:59 Intake Total 2540 4916.7 2825 2440 Output Total 300 1950 2400 1600 Balance 2240 2966.7 425 840 Meds/Results Medications: Active Medications Generic Name Dose Route Start Last Admin Trade Name Freq PRN Reason Stop Dose Admin Acetaminophen 650 mg 10/09/24 15:44 10/12/24 09:36 Acetaminophen 325 Mg Tablet PO 650 mg Q6H PRN Administration Pain Rated 5 or Less, Fever Albuterol/Ipratropium 3 ml 10/09/24 14:33 Ipratropium 0.5 Mg/Albuterol Sulfate 2.5 Mg Ampul.Neb 3 Ml NEBULIZE Q6HRT PRN Shortness Of Breath Or Wheezing Ascorbic Acid 1,000 mg 10/10/24 09:00 10/12/24 09:37 Ascorbic Acid 500 Mg Tablet PO 1,000 mg DAILY RYAN Administration Aspirin 81 mg 10/10/24 09:00 10/12/24 09:37 Aspirin 81 Mg Enteric Tablet PO 11/09/24 08:59 81 mg DAILY RYAN Administration Atorvastatin Calcium 40 mg 10/09/24 21:00 10/11/24 21:45 Atorvastatin 40 Mg Tablet PO 40 mg QHS RYAN Administration Benzocaine 1 lozenge 10/09/24 14:33 Benzocaine/Menthol (*Bkc) 18 Ea Lozenge PO PRN PRN Sore Throat Benzonatate 100 mg 10/09/24 14:33 Benzonatate 100 Mg Capsule PO TID PRN Cough Dextrose 12.5 gm 10/09/24 13:29 Dextrose 50% 25 Gm/50 Ml Syringe IV PUSH PRN PRN Hypoglycemia Protocol Docusate Sodium 100 mg 10/10/24 09:00 10/12/24 09:37 Docusate Sodium 100 Mg Capsule PO 100 mg DAILY RYAN Administration Fentanyl Citrate 25 mcg 10/09/24 15:44 Fentanyl Citrate Inj (*Crx) 100 Mcg/2 Ml Vial IV PUSH Q4H PRN Pain Rated 6 or Greater Ferrous Sulfate 325 mg 10/10/24 09:00 10/12/24 09:37 Ferrous Sulfate [address] PO 11/09/24 08:59 325 mg DAILY RYAN Administration Fluoxetine HCl 40 mg 10/10/24 09:00 10/12/24 09:37 Fluoxetine Hcl 20 Mg Capsule PO 40 mg DAILY RYAN Administration Glucagon 1 mg 10/09/24 13:29 Glucagon For Inj 1 Mg Vial IM PRN PRN Hypoglycemia Protocol Glucose 15 gm 10/09/24 13:29 Glucose Oral Gel 15 Gm Of Glucse In 37.5 Gm Tube PO PRN PRN Hypoglycemia Protocol Guaifenesin 600 mg 10/09/24 15:00 10/12/24 09:37 Guaifenesin 12 Hr 600 Mg Tabcr PO 600 mg Q12HR RYAN Administration Heparin Sodium (Porcine) 5,000 units 10/10/24 22:00 Heparin Sodium 5,000 Units/Ml Vial SUB-Q Q8HR [facility] [place] Azithromycin 500 mg in 250 mls @ 250 mls/hr 10/10/24 09:00 10/12/24 10:30 Zithromax IVPB 250 mls/hr Q24H RYAN Administration Dextrose 1,000 mls @ 100 mls/hr 10/09/24 13:29 Dextrose 5% 1,000 Ml IVPB PRN PRN Hypoglycemia Protocol Ceftriaxone Sodium 2 gm in 100 mls @ 200 mls/hr 10/11/24 09:00 10/12/24 10:31 Rocephin 2 Gm/Ns 100 Ml IVPB Infused DAILY RYAN Infusion Sodium Chloride 1,000 mls @ 75 mls/hr 10/11/24 13:30 10/12/24 04:59 Normal Saline Iv IV CONT 75 mls/hr .[id number] RYAN Administration Insulin Aspart 3 - 6 units 10/09/24 17:00 10/12/24 11:55 Insulin Aspart (*Bkc) 100 Units/Ml SUB-Q Not Given TIDWM [facility] Protocol Insulin Aspart 3 units 10/09/24 17:00 10/12/24 11:55 Insulin Aspart (*Bkc) 100 Units/Ml SUB-Q 11/08/24 16:59 Not Given TIDWM [facility] Insulin Glargine 15 units 10/09/24 21:00 10/11/24 21:47 Insulin Glargine (*Bkc) 100 Units/Ml SUB-Q 15 units QHS RYAN Administration Multivitamins/Calcium 1 tablet 10/10/24 09:00 10/12/24 09:37 Therapeutic Multivitamins/Minerals Tab (*Bkc) PO 1 tablet DAILY RYAN Administration Ondansetron HCl 4 mg 10/09/24 09:54 10/12/24 09:58 Ondansetron Inj 4 Mg/2 Ml Vial IV PUSH 4 mg Q4H PRN Administration Nausea Pantoprazole Sodium 40 mg 10/09/24 21:00 10/12/24 09:37 Pantoprazole 40 Mg Tablet PO 40 mg Q12HR RYAN Administration Vitamin D 1,000 units 10/10/24 09:00 10/12/24 09:37 Cholecalciferol 1,000 Units Tablet PO 1,000 units DAILY RYAN Administration Radiology Results: ITS Impressions Chest X-Ray 10/09/24 09:14 IMPRESSION: 1. Small left pleural effusion with mild left basilar opacities which could represent associated atelectasis or pneumonia. Renal Ultrasound 10/09/24 14:29 IMPRESSION: 1. Mild left hydronephrosis. Abdomen/Pelvis CT 10/09/24 20:32 IMPRESSION: Left-sided hydroureteronephrosis without a clear source of obstruction. Additional findings consistent with emphysematous cystitis. ADDENDUM: 10/09/[id number] These findings were discussed with Varsha Phipps APRN at 9:00 PM on 10/09/2024 Labs Labs: Laboratory Results - last 24 hr 10/11/24 10/11/24 10/12/24 15:31 20:26 04:58 WBC 9.6 RBC 3.15 L Hgb 9.4 L Hct 29.3 L MCV 93.0 D MCH 29.8 MCHC 32.1 RDW 15.8 H Plt Count 71 L MPV 11.1 H Immature Gran % (Auto) 0.6 H Neut % (Auto) 83.5 H Lymph % (Auto) 7.8 L [place] % (Auto) 6.4 Eos % (Auto) 1.3 Baso % (Auto) 0.4 Lymph # (Auto) 0.75 L [place] # (Auto) 0.6 Eos # (Auto) 0.1 Baso # (Auto) 0.0 Abs Immat Gran (auto) 0.06 H Absolute Neuts (auto) 8.0 H Absolute Nucleated RBC 0.000 Nucleated RBC % 0.0 % Immature Plt Fraction 5.5 Sodium 133 L Potassium 3.2 L Chloride 98 Carbon Dioxide 29 Anion Gap 6 BUN 59 H Creatinine 1.70 H Estim Creat Clear Calc 23 Estimated GFR 29 L Glucose 80 POC Capillary Glucose 120 H 113 H Calcium 7.8 L Magnesium 2.3 Total Bilirubin 0.5 AST 82 H ALT 47 H Alkaline Phosphatase 79 Total Protein 6.0 L Albumin 2.6 L 10/12/24 10/12/24 07:33 11:16 WBC RBC Hgb Hct MCV MCH MCHC RDW Plt Count MPV Immature Gran % (Auto) Neut % (Auto) Lymph % (Auto) [place] % (Auto) Eos % (Auto) Baso % (Auto) Lymph # (Auto) [place] # (Auto) Eos # (Auto) Baso # (Auto) Abs Immat Gran (auto) Absolute Neuts (auto) Absolute Nucleated RBC Nucleated RBC % % Immature Plt Fraction Sodium Potassium Chloride Carbon Dioxide Anion Gap BUN Creatinine Estim Creat Clear Calc Estimated GFR Glucose POC Capillary Glucose 75 72 Calcium Magnesium Total Bilirubin AST ALT Alkaline Phosphatase Total Protein Albumin
[2024-10-12 15:26] VITALS: BP 118/61; PULSE 66; RESP 16; TEMP 36.6; O2SAT 96
[2024-10-12 17:29] LABS: Glucose Point of Care 131 mg/dl (65-105)
[2024-10-12 20:16] VITALS: BP 140/50; PULSE 70; RESP 20; TEMP 36.7; O2SAT 96
[2024-10-12 20:25] LABS: Glucose Point of Care 103 mg/dl (65-105)
[2024-10-12] MEDS: ATORVASTATIN 40 MG TABLET PO (21:19)
[2024-10-13] VITALS: BP 126/46; PULSE 65; RESP 18; TEMP 36.6; O2SAT 98
--- NOTE | 2024-10-13 00:55 | PC.NURSE ---
This patient, Florence Barba, was transferred to [facility] on 10/12/24 at 2345. Personal belongings sent with patient. Report given to Cynthia GILES. Appropriate documentation sent with patient.
[2024-10-13 05:29] LABS: Basophils Percent Auto 0.3 % (0.2-1.2); Eosinophils Absolute Auto 0.2 K/mm3 (0-0.3); Eosinophils Percent Auto 1.8 % (0-4.4); Hematocrit 26.7 % (37.0-47.0); Hemoglobin 8.7 g/dL (12.0-15.0); Immature Granulocyte Absolute 0.11 K/mm3 (0.00-0.031); Immature Granulocyte Percent A 1.1 % (0-0.5); Immature Platelet Fraction Pct 5.3 % (0.9-11.2); Lymphocytes Absolute Auto 0.83 K/mm3 (0.9-3.2); Lymphocytes Percent Auto 8.6 % (18.3-44.2); Mean Corpuscular HGB Conc 32.6 g/dl (32-36); Mean Corpuscular Hemoglobin 29.4 pg (26-34); Mean Corpuscular Volume 90.2 fl (80-100); Mean Platelet Volume 11.5 fl (7.4-10.4); Monocytes Absolute Auto 0.6 K/mm3 (0.1-0.6); Monocytes Percent Auto 6.2 % (2.6-8.5); Neutrophils Absolute Auto 7.9 K/mm3 (1.3-6.7); Platelet Count Result 83 k/mm3 (150-375); Red Blood Count 2.96 M/mm3 (4.2-5.4); Red Cell Distribution Width 15.8 % (11.5-14.5); White Blood Count 9.6 K/mm3 (4.5-10.0)
[2024-10-13 05:31] LABS: Alanine Aminotransferase 39 U/L (6-35); Albumin Level 2.5 g/dL (3.5-5.1); Alkaline Phosphatase 86 U/L (38-126); Anion Gap 5 mmol/L (4-12); Aspartate Amino Transferase 69 U/L (14-36); Bilirubin,Total 0.5 mg/dL (0.2-1.3); Blood Urea Nitrogen 46 mg/dL (7-17); Calcium 7.7 mg/dL (8.4-10.2); Carbon Dioxide 29 mmol/L (22-30); Chloride 101 mmol/L (98-107); Estimated CRCL calculation 23 ml/min; Estimated Glomerular Filt Rate 29; Glucose 61 mg/dL (65-110); Potassium 3.4 mmol/L (3.4-5.0); Sodium 135 mmol/L (137-145)
[2024-10-13 05:56] LABS: Platelet Estimate Decreased (Adequate)
[2024-10-13 05:57] LABS: Anisocytosis 1+; Hypochromasia 1+; Ovalocytes 1+; Schistocytes None Seen
[2024-10-13] MEDS: SODIUM CHLORIDE 0.9% IV 1,000 ML 75 ML IV CONT (06:26)
[2024-10-13] MEDS: GLUCOSE ORAL GEL 15 GM OF GLUCSE IN 37.5 GM TUBE PO (08:12)
[2024-10-13 08:16] LABS: Glucose Point of Care 59 mg/dl (65-105)
[2024-10-13] MEDS: cefTRIAXone 2 GM/NS 100 ML 2 GM/100 ML BAG IVPB (08:17)
[2024-10-13] MEDS: CHOLECALCIFEROL 1,000 UNITS TABLET 1000 UNITS PO (08:19)
[2024-10-13] MEDS: FLUoxetine HCL 20 MG CAPSULE 40 MG PO (08:19)
[2024-10-13] MEDS: DOCUSATE SODIUM 100 MG CAPSULE PO (08:20)
[2024-10-13] MEDS: PANTOPRAZOLE 40 MG TABLET PO ×2 (08:20→20:25)
[2024-10-13] MEDS: ASCORBIC ACID 500 MG TABLET 1000 MG PO (08:20)
[2024-10-13] MEDS: FERROUS SULFATE 325 MG TABLET DR PO (08:20)
[2024-10-13] MEDS: guaiFENesin 12 HR 600 MG TABCR PO ×2 (08:20→20:25)
[2024-10-13] MEDS: THERAPEUTIC MULTIVITAMINS/MINERALS TAB (*BKC) 1 TABLET PO (08:20)
[2024-10-13] MEDS: ASPIRIN 81 MG ENTERIC TABLET PO (08:20)
[2024-10-13 08:45] LABS: Glucose Point of Care 83 mg/dl (65-105)
[2024-10-13] MEDS: ONDANSETRON INJ 4 MG/2 ML VIAL IV PUSH (09:26)
[2024-10-13] MEDS: AZITHROMYCIN 500 MG/NS 250 ML 500 MG/250 ML BAG 250 MG IVPB (09:26)
[2024-10-13 11:36] VITALS: BMI 10.0
[2024-10-13 12:11] LABS: Glucose Point of Care 85 mg/dl (65-105)
--- NOTE | 2024-10-13 12:16 | P.PNIM_ITS ---
Progress Note: A&P Assessment and Plan (1) Sepsis: Qualifiers: Sepsis acute organ dysfunction status: unspecified Sepsis type: sepsis due to unspecified organism Qualified Code(s): A41.9 - Sepsis, unspecified o rganism Code(s): A41.9 - Sepsis, unspecified organism Status: Acute Assessment and Plan: resolving WBC 12 from 37.2 on admission, HR wnl, and continue IVF and monitor lactic acid - suspected source: pneumonia and UTI on ceftriaxone and azithromycin on 10/09 blood culture positive for E coli (2) Acute UTI: Code(s): N39.0 - Urinary tract infection, site not specified Status: Acute Assessment and Plan: f/u urine culture which is Gram-negative bacilli likely E coli Continue Rocephin and IVF . (3) Pneumonia: Qualifiers: Pneumonia type: due to unspecified organism Laterality: left Lung location: lower lobe of lung Qualified Code(s): J18.9 - Pneumonia, unspecified organism Code(s): J18.9 - Pneumonia, unspecified organism Status: Suspected Assessment and Plan: - CXR: small left pleural effusion with mild left basilar opacities which could represent associated atelectasis or pneumonia. MRSA negative Continue Rocephin and Azithromycin (4) JEFFERY (acute kidney injury): Code(s): N17.9 - Acute kidney failure, unspecified Status: Acute Assessment and Plan: - creatinine 3.5 and GFR 13, previously 1.1 and GFR 48 on admission - renal ultrasound: mild left hydronephrosis monitor Is and Os Creatinine continues to improve continue IVF Urology consulted for left hydronephrosis Clements catheter placed Suspected to improve with this (5) Type 2 diabetes mellitus with hyperglycemia, with long-term current use of insulin: Code(s): E11.65 - Type 2 diabetes mellitus with hyperglycemia; Z79.4 - custodial (current) use of insulin Status: Chronic Assessment and Plan: - hypoglycemia protocol - POC blood glucose ACHS - home medication: continue Lantus 15 units HS and Lispro 3 units TIDWM - correct regimen ordered - moderate dose TIDWM, based off BMI - A1C 7.1% on 09/05/2024 hypoglycemic this am. hold lantus (6) Essential (primary) hypertension: Code(s): I10 - Essential (primary) hypertension Status: Chronic Assessment and Plan: - home medications: will hold amlodipine 10 mg daily, lisinopril 40 mg daily - monitor Plan Thrombocytopenia: Likely due to sepsis. Will continue to monitor heparin on hold E coli bacteremia Likely from UTI continue Monitoring blood cultures. Sensitive to ceftriaxone. repeat blood culture continue abx above Diet: Diabetic GI Prophylaxis: Continue home pantoprazole DVT Prophylaxis: Sq heparin on hold due to thrombocytopenia Lines: Peripheral Code Status: Full code Subjective Date/time seen: 10/13/24 12:16 Interval history: no overnight events. Still feels weak. Denies any new complaints. Some nausea. Review of Systems Review of Systems: All systems reviewed & are unremarkable except as noted in HPI and below Exam Narrative: APPEARANCE: Ill-appearing not in acute distress HEAD: normocephalic, atraumatic. EYES: PERRLA/EOMI, conjunctivae clear. NECK: Supple. No adenopathy, no masses. RESPIRATORY: Airway patent, respirations nonlabored. Clear to auscultation bilaterally, no rales, rhonchi, wheezing. CARDIOVASCULAR: Regular rate and rhythm without murmurs rubs or gallops. ABDOMINAL: Soft tender suprapubic area no distension MUSCULOSKELETAL: Moves all extremities. Strength/ROM intact, No edema, No calf tenderness. NEURO: Alert. 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 Normal Color Objective Data Vital Signs Vital Signs: Vital Signs - 24 hr 10/12/24 15:26 10/12/24 20:16 10/12/24 20:00 Temperature 97.8 F 98.1 F Pulse Rate 66 70 Respiratory Rate 16 20 Blood Pressure 118/61 140/50 L Pulse Oximetry 96 96 Oxygen Delivery Room Air 10/13/24 00:00 10/13/24 08:36 10/13/24 08:27 Temperature 97.8 F Pulse Rate 65 Respiratory Rate 18 Blood Pressure 126/46 L Pulse Oximetry 98 Oxygen Delivery Room Air Room Air Intake/Output Intake/Output: Intake & Output 10/10/24 10/11/24 10/12/24 10/13/24 23:59 23:59 23:59 23:59 Intake Total 4916.7 2825 4045 1963.7 Output Total 1950 2400 2175 650 Balance 2966.7 425 1870 1313.7 Meds/Results Medications: Active Medications Generic Name Dose Route Start Last Admin Trade Name Freq PRN Reason Stop Dose Admin Acetaminophen 650 mg 10/09/24 15:44 10/12/24 09:36 Acetaminophen 325 Mg Tablet PO 650 mg Q6H PRN Administration Pain Rated 5 or Less, Fever Albuterol/Ipratropium 3 ml 10/09/24 14:33 Ipratropium 0.5 Mg/Albuterol Sulfate 2.5 Mg Ampul.Neb 3 Ml NEBULIZE Q6HRT PRN Shortness Of Breath Or Wheezing Ascorbic Acid 1,000 mg 10/10/24 09:00 10/13/24 08:20 Ascorbic Acid 500 Mg Tablet PO 1,000 mg DAILY RYAN Administration Aspirin 81 mg 10/10/24 09:00 10/13/24 08:20 Aspirin 81 Mg Enteric Tablet PO 11/09/24 08:59 81 mg DAILY RYAN Administration Atorvastatin Calcium 40 mg 10/09/24 21:00 10/12/24 21:19 Atorvastatin 40 Mg Tablet PO 40 mg QHS RYAN Administration Benzocaine 1 lozenge 10/09/24 14:33 Benzocaine/Menthol (*Bkc) 18 Ea Lozenge PO PRN PRN Sore Throat Benzonatate 100 mg 10/09/24 14:33 Benzonatate 100 Mg Capsule PO TID PRN Cough Dextrose 12.5 gm 10/09/24 13:29 Dextrose 50% 25 Gm/50 Ml Syringe IV PUSH PRN PRN Hypoglycemia Protocol Docusate Sodium 100 mg 10/10/24 09:00 10/13/24 08:20 Docusate Sodium 100 Mg Capsule PO 100 mg DAILY RYAN Administration Fentanyl Citrate 25 mcg 10/09/24 15:44 Fentanyl Citrate Inj (*Crx) 100 Mcg/2 Ml Vial IV PUSH Q4H PRN Pain Rated 6 or Greater Ferrous Sulfate 325 mg 10/10/24 09:00 10/13/24 08:20 Ferrous Sulfate [address] PO 11/09/24 08:59 325 mg DAILY RYAN Administration Fluoxetine HCl 40 mg 10/10/24 09:00 10/13/24 08:19 Fluoxetine Hcl 20 Mg Capsule PO 40 mg DAILY RYAN Administration Glucagon 1 mg 10/09/24 13:29 Glucagon For Inj 1 Mg Vial IM PRN PRN Hypoglycemia Protocol Glucose 15 gm 10/09/24 13:29 10/13/24 08:12 Glucose Oral Gel 15 Gm Of Glucse In 37.5 Gm Tube PO 15 gm PRN PRN Administration Hypoglycemia Protocol Guaifenesin 600 mg 10/09/24 15:00 10/13/24 08:20 Guaifenesin 12 Hr 600 Mg Tabcr PO 600 mg Q12HR RYAN Administration Heparin Sodium (Porcine) 5,000 units 10/10/24 22:00 Heparin Sodium 5,000 Units/Ml Vial SUB-Q Q8HR RYAN Azithromycin 500 mg in 250 mls @ 250 mls/hr 10/10/24 09:00 10/13/24 10:30 Zithromax IVPB Infused Q24H RYAN Infusion Dextrose 1,000 mls @ 100 mls/hr 10/09/24 13:29 Dextrose 5% 1,000 Ml IVPB PRN PRN Hypoglycemia Protocol Ceftriaxone Sodium 2 gm in 100 mls @ 200 mls/hr 10/11/24 09:00 10/13/24 09:31 Rocephin 2 Gm/Ns 100 Ml IVPB Infused DAILY RYAN Infusion Sodium Chloride 1,000 mls @ 75 mls/hr 10/11/24 13:30 10/13/24 06:26 Normal Saline Iv IV CONT 75 mls/hr .[id number] RYAN Administration Insulin Aspart 3 - 6 units 10/09/24 17:00 10/13/24 08:16 Insulin Aspart (*Bkc) 100 Units/Ml SUB-Q Not Given TIDWM [facility] Protocol Insulin Aspart 3 units 10/09/24 17:00 10/12/24 18:15 Insulin Aspart (*Bkc) 100 Units/Ml SUB-Q 11/08/24 16:59 Not Given TIDWM [facility] Insulin Aspart 2 - 5 units 10/13/24 08:00 10/13/24 08:16 Insulin Aspart (*Bkc) 100 Units/Ml SUB-Q Not Given TIDWM [facility] Protocol Insulin Glargine 10 units 10/13/24 21:00 Insulin Glargine (*Bkc) 100 Units/Ml SUB-Q QHS [facility] Multivitamins/Calcium 1 tablet 10/10/24 09:00 10/13/24 08:20 Therapeutic Multivitamins/Minerals Tab (*Bkc) PO 1 tablet DAILY RYAN Administration Ondansetron HCl 4 mg 10/09/24 09:54 10/13/24 09:26 Ondansetron Inj 4 Mg/2 Ml Vial IV PUSH 4 mg Q4H PRN Administration Nausea Pantoprazole Sodium 40 mg 10/09/24 21:00 10/13/24 08:20 Pantoprazole 40 Mg Tablet PO 40 mg Q12HR RYAN Administration Vitamin D 1,000 units 10/10/24 09:00 10/13/24 08:19 Cholecalciferol 1,000 Units Tablet PO 1,000 units DAILY RYAN Administration Radiology Results: ITS Impressions Chest X-Ray 10/09/24 09:14 IMPRESSION: 1. Small left pleural effusion with mild left basilar opacities which could represent associated atelectasis or pneumonia. Renal Ultrasound 10/09/24 14:29 IMPRESSION: 1. Mild left hydronephrosis. Abdomen/Pelvis CT 10/09/24 20:32 IMPRESSION: Left-sided hydroureteronephrosis without a clear source of obstruction. Additional findings consistent with emphysematous cystitis. ADDENDUM: 10/09/242103 These findings were discussed with Varsha Phipps APRN at 9:00 PM on 10/09/2024 Labs Labs: Laboratory Results - last 24 hr 10/12/24 10/12/24 10/13/24 15:25 20:18 05:01 WBC 9.6 RBC 2.96 L Hgb 8.7 L Hct 26.7 L MCV 90.2 MCH 29.4 MCHC 32.6 RDW 15.8 H Plt Count 83 L MPV 11.5 H Immature Gran % (Auto) 1.1 H Neut % (Auto) 82.0 H Lymph % (Auto) 8.6 L [place] % (Auto) 6.2 Eos % (Auto) 1.8 Baso % (Auto) 0.3 Lymph # (Auto) 0.83 L [place] # (Auto) 0.6 Eos # (Auto) 0.2 Baso # (Auto) 0.0 Abs Immat Gran (auto) 0.11 H Absolute Neuts (auto) 7.9 H Absolute Nucleated RBC 0.000 Nucleated RBC % 0.0 Platelet Estimate Decreased % Immature Plt Fraction 5.3 Hypochromasia 1+ Anisocytosis 1+ Ovalocytes 1+ Schistocytes None seen Sodium 135 L Potassium 3.4 Chloride 101 Carbon Dioxide 29 Anion Gap 5 BUN 46 H D Creatinine 1.70 H Estim Creat Clear Calc 23 Estimated GFR 29 L Glucose 61 L POC Capillary Glucose 131 H 103 Calcium 7.7 L Magnesium 2.0 Total Bilirubin 0.5 AST 69 H ALT 39 H Alkaline Phosphatase 86 Total Protein 6.0 L Albumin 2.5 L 10/13/24 10/13/24 10/13/24 08:07 08:38 12:07 WBC RBC Hgb Hct MCV MCH MCHC RDW Plt Count MPV Immature Gran % (Auto) Neut % (Auto) Lymph % (Auto) [place] % (Auto) Eos % (Auto) Baso % (Auto) Lymph # (Auto) [place] # (Auto) Eos # (Auto) Baso # (Auto) Abs Immat Gran (auto) Absolute Neuts (auto) Absolute Nucleated RBC Nucleated RBC % Platelet Estimate % Immature Plt Fraction Hypochromasia Anisocytosis Ovalocytes Schistocytes Sodium Potassium Chloride Carbon Dioxide Anion Gap BUN Creatinine Estim Creat Clear Calc Estimated GFR Glucose POC Capillary Glucose 59 L* 83 85 Calcium Magnesium Total Bilirubin AST ALT Alkaline Phosphatase Total Protein Albumin
[2024-10-13] MEDS: ACETAMINOPHEN 325 MG TABLET 650 MG PO (12:32)
[2024-10-13 13:55] VITALS: BP 156/62; PULSE 83; RESP 18; TEMP 36.6; O2SAT 93
[2024-10-13 16:53] LABS: Glucose Point of Care 97 mg/dl (65-105)
[2024-10-13] MEDS: BISACODYL 10 MG SUPPOSITORY RECTAL (18:18)
[2024-10-13] MEDS: ATORVASTATIN 40 MG TABLET PO (20:25)
[2024-10-13 20:36] LABS: Glucose Point of Care 125 mg/dl (65-105)
[2024-10-13 21:22] VITALS: BP 162/72; PULSE 84; RESP 16; TEMP 35.8; O2SAT 95
[2024-10-14 05:57] LABS: Basophils Percent Auto 0.2 % (0.2-1.2); Eosinophils Percent Auto 0.3 % (0-4.4); Hematocrit 26.7 % (37.0-47.0); Hemoglobin 8.8 g/dL (12.0-15.0); Immature Granulocyte Absolute 0.13 K/mm3 (0.00-0.031); Immature Granulocyte Percent A 1.1 % (0-0.5); Lymphocytes Absolute Auto 0.69 K/mm3 (0.9-3.2); Lymphocytes Percent Auto 5.6 % (18.3-44.2); Mean Corpuscular Hemoglobin 29.1 pg (26-34); Mean Corpuscular Volume 88.4 fl (80-100); Mean Platelet Volume 10.9 fl (7.4-10.4); Monocytes Absolute Auto 0.7 K/mm3 (0.1-0.6); Monocytes Percent Auto 5.8 % (2.6-8.5); Neutrophils Absolute Auto 10.7 K/mm3 (1.3-6.7); Platelet Count Result 127 k/mm3 (150-375); Red Blood Count 3.02 M/mm3 (4.2-5.4); Red Cell Distribution Width 15.5 % (11.5-14.5); White Blood Count 12.3 K/mm3 (4.5-10.0)
[2024-10-14 06:00] VITALS: BP 136/71; PULSE 75; RESP 18; TEMP 36; O2SAT 100
[2024-10-14 06:15] LABS: Potassium 3.3 mmol/L (3.4-5.0)
[2024-10-14 06:18] LABS: Alanine Aminotransferase 33 U/L (6-35); Albumin Level 2.5 g/dL (3.5-5.1); Alkaline Phosphatase 103 U/L (38-126); Anion Gap 7 mmol/L (4-12); Aspartate Amino Transferase 67 U/L (14-36); Bilirubin,Total 0.5 mg/dL (0.2-1.3); Blood Urea Nitrogen 43 mg/dL (7-17); Calcium 7.9 mg/dL (8.4-10.2); Carbon Dioxide 27 mmol/L (22-30); Chloride 103 mmol/L (98-107); Estimated CRCL calculation 23 ml/min; Estimated Glomerular Filt Rate 29; Glucose 100 mg/dL (65-110); Sodium 137 mmol/L (137-145)
[2024-10-14 08:21] LABS: Glucose Point of Care 90 mg/dl (65-105)
[2024-10-14] MEDS: FLUoxetine HCL 20 MG CAPSULE 40 MG PO (08:31)
[2024-10-14] MEDS: ASPIRIN 81 MG ENTERIC TABLET PO (08:31)
[2024-10-14] MEDS: PANTOPRAZOLE 40 MG TABLET PO ×2 (08:31→20:58)
[2024-10-14] MEDS: FERROUS SULFATE 325 MG TABLET DR PO (08:31)
[2024-10-14] MEDS: guaiFENesin 12 HR 600 MG TABCR PO ×2 (08:32→20:58)
[2024-10-14] MEDS: CHOLECALCIFEROL 1,000 UNITS TABLET 1000 UNITS PO (08:32)
[2024-10-14] MEDS: ASCORBIC ACID 500 MG TABLET 1000 MG PO (08:32)
[2024-10-14] MEDS: DOCUSATE SODIUM 100 MG CAPSULE PO (08:32)
[2024-10-14] MEDS: THERAPEUTIC MULTIVITAMINS/MINERALS TAB (*BKC) 1 TABLET PO (08:32)
[2024-10-14 08:33] VITALS: RESP 18; O2SAT 100
[2024-10-14] MEDS: cefTRIAXone 2 GM/NS 100 ML 2 GM/100 ML BAG IVPB (08:33)
[2024-10-14] MEDS: POTASSIUM CHLORIDE 20 MEQ ER TABLET PO (08:38)
[2024-10-14 12:05] LABS: Glucose Point of Care 130 mg/dl (65-105)
--- NOTE | 2024-10-14 12:40 | PM.DS ---
DS: Admitting Diagnosis Discharge Date 10/14/2024 Admitting Diagnosis Sepsis DS: Discharge Diagnosis Discharge Diagnosis (1) Sepsis: Qualifiers: Sepsis acute organ dysfunction status: unspecified Sepsis type: sepsis due to unspecified organism Qualified Code(s): A41.9 - Sepsis, unspecified organism Code(s): A41.9 - Sepsis, unspecified organism Status: Acute (2) Acute UTI: Code(s): N39.0 - Urinary tract infection, site not specified Status: Acute (3) Pneumonia: Qualifiers: Pneumonia type: due to unspecified organism Laterality: left Lung location: lower lobe of lung Qualified Code(s): J18.9 - Pneumonia, unspecified organism Code(s): J18.9 - Pneumonia, unspecified organism Status: Suspected (4) JEFFERY (acute kidney injury): Code(s): N17.9 - Acute kidney failure, unspecified Status: Acute (5) Type 2 diabetes mellitus with hyperglycemia, with long-term current use of insulin: Code(s): E11.65 - Type 2 diabetes mellitus with hyperglycemia; Z79.4 - intermodal customer service (current) use of insulin Status: Chronic (6) Essential (primary) hypertension: Code(s): I10 - Essential (primary) hypertension Status: Chronic DS: Summary Time Spent with Patient Time attestation: Total time spent providing and/or coordinating discharge services: Exam Narrative: APPEARANCE: Ill-appearing not in acute distress HEAD: normocephalic, atraumatic. EYES: PERRLA/EOMI, conjunctivae clear. NECK: Supple. No adenopathy, no masses. RESPIRATORY: Airway patent, respirations nonlabored. Clear to auscultation bilaterally, no rales, rhonchi, wheezing. CARDIOVASCULAR: Regular rate and rhythm without murmurs rubs or gallops. ABDOMINAL: Soft tender suprapubic area no distension MUSCULOSKELETAL: Moves all extremities. Strength/ROM intact, No edema, No calf tenderness. NEURO: Alert. 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 Normal Color DS: Data Data Completed and Pending Labs on day of discharge: Labs from last 24 hours 10/14/24 10/14/24 10/14/24 11:58 08:00 05:25 WBC 12.3 H RBC 3.02 L Hgb 8.8 L Hct 26.7 L MCV 88.4 MCH 29.1 MCHC 33.0 RDW 15.5 H Plt Count 127 L D MPV 10.9 H Immature Gran % (Auto) 1.1 H Neut % (Auto) 87.0 H Lymph % (Auto) 5.6 L [place] % (Auto) 5.8 Eos % (Auto) 0.3 Baso % (Auto) 0.2 Lymph # (Auto) 0.69 L [place] # (Auto) 0.7 H Eos # (Auto) 0.0 Baso # (Auto) 0.0 Abs Immat Gran (auto) 0.13 H Absolute Neuts (auto) 10.7 H Absolute Nucleated RBC 0.000 Nucleated RBC % 0.0 Sodium 137 Potassium 3.3 L Chloride 103 Carbon Dioxide 27 Anion Gap 7 BUN 43 H Creatinine 1.70 H Estim Creat Clear Calc 23 Estimated GFR 29 L Glucose 100 POC Capillary Glucose 130 H 90 Calcium 7.9 L Magnesium 2.0 Total Bilirubin 0.5 AST 67 H ALT 33 Alkaline Phosphatase 103 Total Protein 6.0 L Albumin 2.5 L 10/13/24 10/13/24 19:49 16:50 WBC RBC Hgb Hct MCV MCH MCHC RDW Plt Count MPV Immature Gran % (Auto) Neut % (Auto) Lymph % (Auto) [place] % (Auto) Eos % (Auto) Baso % (Auto) Lymph # (Auto) [place] # (Auto) Eos # (Auto) Baso # (Auto) Abs Immat Gran (auto) Absolute Neuts (auto) Absolute Nucleated RBC Nucleated RBC % Sodium Potassium Chloride Carbon Dioxide Anion Gap BUN Creatinine Estim Creat Clear Calc Estimated GFR Glucose POC Capillary Glucose 125 H 97 Calcium Magnesium Total Bilirubin AST ALT Alkaline Phosphatase Total Protein Albumin Preliminary micro results at discharge 10/11/24 14:42 Blood Culture - Preliminary Blood 10/11/24 14:35 Blood Culture - Preliminary Blood Imaging Radiologist's impression: ITS Impressions Chest X-Ray 10/09/24 09:14 IMPRESSION: 1. Small left pleural effusion with mild left basilar opacities which could represent associated atelectasis or pneumonia. Renal Ultrasound 10/09/24 14:29 IMPRESSION: 1. Mild left hydronephrosis. Abdomen/Pelvis CT 10/09/24 20:32 IMPRESSION: Left-sided hydroureteronephrosis without a clear source of obstruction. Additional findings consistent with emphysematous cystitis. ADDENDUM: 10/09/[id number] These findings were discussed with Varsha Phipps APRN at 9:00 PM on 10/09/2024 Discharge Plan Discharge Attending physician on discharge: Freddy Brown Consulting providers: Lenny Meehan Discharging Clinician: Freddy Brown Anticipated Discharge Date/Time: 10/14/24 12:46 Patient Disposition: [facility] Activity: as tolerated Diet: diabetic Discharge Instructions: accu checks a.c. and HS PT OT to continue to evaluate Follow-up/Referrals: Cassidy Rogers MD [Primary Care Provider] - 1 Week Lenny Meehan MD [Physician] - 2 Weeks Discharge Medications: New insulin aspart U-100 [Novolog U-100 Insulin aspart] 100 unit/mL Solution 2 - 5 unit subcut TIDWM Qty: 10 0RF Protocol: Insulin Corrective Low-Dose Condition: glucose < 70 mg/dl Dose/Route: Follow Hypoglycemia Order Condition: glucose 70-200 mg/dl Dose/Route: No additional insulin Condition: glucose 201-250 mg/dl Dose/Route: 2 units sub-Q Condition: glucose 251-300 mg/dl Dose/Route: 3 units sub-Q Condition: glucose 301-350 mg/dl Dose/Route: 4 units sub-Q Condition: glucose 351-400 mg/dl Dose/Route: 5 units sub-Q Condition: glucose > 400 mg/dl Dose/Route: Call MD Protocol Text: *No Correction Dose at Bedtime* amlodipine 5 mg tablet 5 mg PO DAILY Qty: 30 0RF guaifenesin [Mucus Relief ER] 600 mg Tablet Extended Release 12hr 600 mg PO Q12HR Qty: 30 0RF amoxicillin-pot clavulanate 500-125 mg tablet 1 tablet PO Q8H Qty: 15 0RF Continued fluoxetine 40 mg capsule 40 mg PO DAILY ferrous sulfate 325 mg (65 mg iron) tablet 325 mg PO DAILY cholecalciferol (vitamin D3) 125 mcg (5,000 unit) Capsule 125 mcg PO DAILY Centrum Silver Women 8 mg iron-400 mcg-300 mcg Tablet 1 tablet PO DAILY Adult Low Dose Aspirin 81 mg Tablet 81 mg PO DAILY atorvastatin 40 mg tablet 40 mg PO QHS Qty: 90 1RF (DME) pen needle, diabetic [BD Ultra-Fine Micro Pen Needle] 32 gauge x 1/4 needle See Rx Instructions .Route Qty: 100 1RF Rx Instructions: For use with insulin pen ascorbic acid (vitamin C) [Vitamin C] 500 mg Tablet 1,000 mg PO DAILY 30 Days Qty: 60 0RF pantoprazole 40 mg Tablet,Delayed Release (Dr/Ec) 40 mg PO Q12H 30 Days Qty: 60 0RF docusate sodium 100 mg Capsule 100 mg PO DAILY 30 Days Qty: 30 0RF Discontinued lisinopril 40 mg tablet 40 mg PO DAILY insulin glargine [Basaglar KwikPen U-100 Insulin] 100 unit/mL (3 mL) insulin pen 15 unit subcut QHS insulin lispro 100 unit/mL solution 3 unit subcut TIDWM amlodipine 10 mg tablet 10 mg PO DAILY Qty: 90 0RF Other Ambulatory Orders: Complete Blood Count with Diff (Routine) Timeframe: 1 Week Location: Determined by Patient Ordered By: Freddy Brown Comprehensive Metabolic Panel (Routine) Timeframe: 1 Week Location: Determined by Patient Ordered By: Freddy Brown Date of admission: 10/09/24 13:39 Primary Care Provider: Cassidy Rogers Admitting Provider: Stephanie Levi Attending physician on admission: Stephanie Levi Condition: Improved
[2024-10-14] MEDS: ONDANSETRON INJ 4 MG/2 ML VIAL IV PUSH (13:03)
[2024-10-14] MEDS: HEPARIN SODIUM 5,000 UNITS/ML VIAL 5000 UNITS SUB-Q ×2 (13:03→20:59)
--- NOTE | 2024-10-14 13:58 | PM.IMPN ---
Progress Note: A&P Assessment and Plan (1) Sepsis: Qualifiers: Sepsis acute organ dysfunction status: unspecified Sepsis type: sepsis due to unspecified organism Qualified Code(s): A41.9 - Sepsis, unspecified organism Code(s): A41.9 - Sepsis, unspecified organism Status: Acute Assessment and Plan: resolving WBC 12 from 37.2 on admission, HR wnl, and continue IVF and monitor lactic acid - suspected source: pneumonia and UTI on ceftriaxone and azithromycin on 10/09 blood culture positive for E coli concludes azithromycin (2) Acute UTI: Code(s): N39.0 - Urinary tract infection, site not specified Status: Acute Assessment and Plan: f/u urine culture which is Gram-negative bacilli likely E coli Continue Rocephin and IVF ivf stopped (3) Pneumonia: Qualifiers: Pneumonia type: due to unspecified organism Laterality: left Lung location: lower lobe of lung Qualified Code(s): J18.9 - Pneumonia, unspecified organism Code(s): J18.9 - Pneumonia, unspecified organism Status: Suspected Assessment and Plan: - CXR: small left pleural effusion with mild left basilar opacities which could represent associated atelectasis or pneumonia. MRSA negative Continue Rocephin and Azithromycin finished azithromycin (4) JEFFERY (acute kidney injury): Code(s): N17.9 - Acute kidney failure, unspecified Status: Acute Assessment and Plan: - creatinine 3.5 and GFR 13, previously 1.1 and GFR 48 on admission - renal ultrasound: mild left hydronephrosis monitor Is and Os Creatinine continues to improve continue IVF Urology consulted for left hydronephrosis Kasper catheter placed expected to improve with this (5) Type 2 diabetes mellitus with hyperglycemia, with long-term current use of insulin: Code(s): E11.65 - Type 2 diabetes mellitus with hyperglycemia; Z79.4 - retirement (current) use of insulin Status: Chronic Assessment and Plan: - hypoglycemia protocol - POC blood glucose ACHS - home medication: continue Lantus 15 units HS and Lispro 3 units TIDWM - correct regimen ordered - moderate dose TIDWM, based off BMI - A1C 7.1% on 09/05/2024 hypoglycemic this am. hold lantus and lispro only on low dose SSI (6) Essential (primary) hypertension: Code(s): I10 - Essential (primary) hypertension Status: Chronic Assessment and Plan: - home medications: will hold amlodipine 10 mg daily, lisinopril 40 mg daily - monitor Plan Thrombocytopenia: Likely due to sepsis. Will continue to monitor heparin on hold. thrombocytopenia improving E coli bacteremia Likely from UTI continue Monitoring blood cultures. Sensitive to ceftriaxone. repeat blood culture continue abx above Diet: Diabetic GI Prophylaxis: Continue home pantoprazole DVT Prophylaxis: Sq heparin on hold due to thrombocytopenia, resumed now. Lines: Peripheral Code Status: Full code Subjective Date/time seen: 10/14/24 13:58 Interval history: no overnight events. had some urinary retnetion and needed kasper swapped. no fever, chills. also having nasuea, vomiting. Review of Systems Review of Systems: All systems reviewed & are unremarkable except as noted in HPI and below Exam Narrative: APPEARANCE: well-appearing not in acute distress HEAD: normocephalic, atraumatic. EYES: PERRLA/EOMI, conjunctivae clear. NECK: Supple. No adenopathy, no masses. RESPIRATORY: Airway patent, respirations nonlabored. Clear to auscultation bilaterally, no rales, rhonchi, wheezing. CARDIOVASCULAR: Regular rate and rhythm without murmurs rubs or gallops. ABDOMINAL: Soft tender suprapubic area no distension MUSCULOSKELETAL: Moves all extremities. Strength/ROM intact, No edema, No calf tenderness. kasper in place NEURO: Alert. 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 Normal Color Objective Data Vital Signs Vital Signs: Vital Signs - 24 hr 10/13/24 21:22 10/14/24 06:00 10/14/24 08:33 Temperature 96.4 F L 96.8 F L Pulse Rate 84 75 Respiratory Rate 16 18 18 Blood Pressure 162/72 H 136/71 Pulse Oximetry 95 100 100 Oxygen Delivery Room Air Intake/Output Intake/Output: Intake & Output 10/11/24 10/12/24 10/13/24 10/14/24 23:59 23:59 23:59 23:59 Intake Total 2825 4045 2203.7 1060 Output Total 2400 2175 1250 950 Balance 425 1870 953.7 110 Meds/Results Medications: Active Medications Generic Name Dose Route Start Last Admin Trade Name Freq PRN Reason Stop Dose Admin Acetaminophen 650 mg 10/09/24 15:44 10/13/24 12:32 Acetaminophen 325 Mg Tablet PO 650 mg Q6H PRN Administration Pain Rated 5 or Less, Fever Albuterol/Ipratropium 3 ml 10/09/24 14:33 Ipratropium 0.5 Mg/Albuterol Sulfate 2.5 Mg Ampul.Neb 3 Ml NEBULIZE Q6HRT PRN Shortness Of Breath Or Wheezing Ascorbic Acid 1,000 mg 10/10/24 09:00 10/14/24 08:32 Ascorbic Acid 500 Mg Tablet PO 1,000 mg DAILY RYAN Administration Aspirin 81 mg 10/10/24 09:00 10/14/24 08:31 Aspirin 81 Mg Enteric Tablet PO 11/09/24 08:59 81 mg DAILY RYAN Administration Atorvastatin Calcium 40 mg 10/09/24 21:00 10/13/24 20:25 Atorvastatin 40 Mg Tablet PO 40 mg QHS RYAN Administration Benzocaine 1 lozenge 10/09/24 14:33 Benzocaine/Menthol (*Bkc) 18 Ea Lozenge PO PRN PRN Sore Throat Benzonatate 100 mg 10/09/24 14:33 Benzonatate 100 Mg Capsule PO TID PRN Cough Dextrose 12.5 gm 10/09/24 13:29 Dextrose 50% 25 Gm/50 Ml Syringe IV PUSH PRN PRN Hypoglycemia Protocol Docusate Sodium 100 mg 10/10/24 09:00 10/14/24 08:32 Docusate Sodium 100 Mg Capsule PO 100 mg DAILY RYAN Administration Fentanyl Citrate 25 mcg 10/09/24 15:44 Fentanyl Citrate Inj (*Crx) 100 Mcg/2 Ml Vial IV PUSH Q4H PRN Pain Rated 6 or Greater Ferrous Sulfate 325 mg 10/10/24 09:00 10/14/24 08:31 Ferrous Sulfate [address] PO 11/09/24 08:59 325 mg DAILY RYAN Administration Fluoxetine HCl 40 mg 10/10/24 09:00 10/14/24 08:31 Fluoxetine Hcl 20 Mg Capsule PO 40 mg DAILY RYAN Administration Glucagon 1 mg 10/09/24 13:29 Glucagon For Inj 1 Mg Vial IM PRN PRN Hypoglycemia Protocol Glucose 15 gm 10/09/24 13:29 10/13/24 08:12 Glucose Oral Gel 15 Gm Of Glucse In 37.5 Gm Tube PO 15 gm PRN PRN Administration Hypoglycemia Protocol Guaifenesin 600 mg 10/09/24 15:00 10/14/24 08:32 Guaifenesin 12 Hr 600 Mg Tabcr PO 600 mg Q12HR RYAN Administration Heparin Sodium (Porcine) 5,000 units 10/10/24 22:00 10/14/24 13:03 Heparin Sodium 5,000 Units/Ml Vial SUB-Q 5,000 units Q8HR RYAN Administration Dextrose 1,000 mls @ 100 mls/hr 10/09/24 13:29 Dextrose 5% 1,000 Ml IVPB PRN PRN Hypoglycemia Protocol Ceftriaxone Sodium 2 gm in 100 mls @ 200 mls/hr 10/11/24 09:00 10/14/24 09:03 Rocephin 2 Gm/Ns 100 Ml IVPB Infused DAILY [facility] Infusion Insulin Aspart 3 units 10/09/24 17:00 10/12/24 18:15 Insulin Aspart (*Bkc) 100 Units/Ml SUB-Q 11/08/24 16:59 Not Given TIDWM [facility] Insulin Aspart 2 - 5 units 10/13/24 08:00 10/14/24 12:10 Insulin Aspart (*Bkc) 100 Units/Ml SUB-Q Not Given TIDWM [facility] Protocol Insulin Glargine 10 units 10/13/24 21:00 Insulin Glargine (*Bkc) 100 Units/Ml SUB-Q QHS [facility] Multivitamins/Calcium 1 tablet 10/10/24 09:00 10/14/24 08:32 Therapeutic Multivitamins/Minerals Tab (*Bkc) PO 1 tablet DAILY RYAN Administration Ondansetron HCl 4 mg 10/09/24 09:54 10/14/24 13:03 Ondansetron Inj 4 Mg/2 Ml Vial IV PUSH 4 mg Q4H PRN Administration Nausea Pantoprazole Sodium 40 mg 10/09/24 21:00 10/14/24 08:31 Pantoprazole 40 Mg Tablet PO 40 mg Q12HR RYAN Administration Vitamin D 1,000 units 10/10/24 09:00 10/14/24 08:32 Cholecalciferol 1,000 Units Tablet PO 1,000 units DAILY RYAN Administration Radiology Results: ITS Impressions Chest X-Ray 10/09/24 09:14 IMPRESSION: 1. Small left pleural effusion with mild left basilar opacities which could represent associated atelectasis or pneumonia. Renal Ultrasound 10/09/24 14:29 IMPRESSION: 1. Mild left hydronephrosis. Abdomen/Pelvis CT 10/09/24 20:32 IMPRESSION: Left-sided hydroureteronephrosis without a clear source of obstruction. Additional findings consistent with emphysematous cystitis. ADDENDUM: 10/09/242103 These findings were discussed with Varsha Phipps APRN at 9:00 PM on 10/09/2024 Labs Labs: Laboratory Results - last 24 hr 10/13/24 10/13/24 10/14/24 16:50 19:49 05:25 WBC 12.3 H RBC 3.02 L Hgb 8.8 L Hct 26.7 L MCV 88.4 MCH 29.1 MCHC 33.0 RDW 15.5 H Plt Count 127 L D MPV 10.9 H Immature Gran % (Auto) 1.1 H Neut % (Auto) 87.0 H Lymph % (Auto) 5.6 L [place] % (Auto) 5.8 Eos % (Auto) 0.3 Baso % (Auto) 0.2 Lymph # (Auto) 0.69 L [place] # (Auto) 0.7 H Eos # (Auto) 0.0 Baso # (Auto) 0.0 Abs Immat Gran (auto) 0.13 H Absolute Neuts (auto) 10.7 H Absolute Nucleated RBC 0.000 Nucleated RBC % 0.0 Sodium 137 Potassium 3.3 L Chloride 103 Carbon Dioxide 27 Anion Gap 7 BUN 43 H Creatinine 1.70 H Estim Creat Clear Calc 23 Estimated GFR 29 L Glucose 100 POC Capillary Glucose 97 125 H Calcium 7.9 L Magnesium 2.0 Total Bilirubin 0.5 AST 67 H ALT 33 Alkaline Phosphatase 103 Total Protein 6.0 L Albumin 2.5 L 10/14/24 10/14/24 08:00 11:58 WBC RBC Hgb Hct MCV MCH MCHC RDW Plt Count MPV Immature Gran % (Auto) Neut % (Auto) Lymph % (Auto) [place] % (Auto) Eos % (Auto) Baso % (Auto) Lymph # (Auto) [place] # (Auto) Eos # (Auto) Baso # (Auto) Abs Immat Gran (auto) Absolute Neuts (auto) Absolute Nucleated RBC Nucleated RBC % Sodium Potassium Chloride Carbon Dioxide Anion Gap BUN Creatinine Estim Creat Clear Calc Estimated GFR Glucose POC Capillary Glucose 90 130 H Calcium Magnesium Total Bilirubin AST ALT Alkaline Phosphatase Total Protein Albumin
[2024-10-14 14:00] VITALS: BP 130/59; PULSE 72; RESP 16; TEMP 36.6; O2SAT 99
[2024-10-14 16:38] LABS: Glucose Point of Care 141 mg/dl (65-105)
[2024-10-14] MEDS: ATORVASTATIN 40 MG TABLET PO (20:58)
[2024-10-14 21:01] LABS: Glucose Point of Care 186 mg/dl (65-105)
[2024-10-14 21:09] VITALS: BP 158/59; PULSE 86; RESP 16; TEMP 37.1; O2SAT 95
[2024-10-15 05:31] LABS: Basophils Percent Auto 0.2 % (0.2-1.2); Eosinophils Absolute Auto 0.2 K/mm3 (0-0.3); Eosinophils Percent Auto 1.5 % (0-4.4); Hematocrit 26.2 % (37.0-47.0); Hemoglobin 8.6 g/dL (12.0-15.0); Immature Granulocyte Absolute 0.15 K/mm3 (0.00-0.031); Immature Granulocyte Percent A 1.5 % (0-0.5); Lymphocytes Absolute Auto 0.96 K/mm3 (0.9-3.2); Lymphocytes Percent Auto 9.5 % (18.3-44.2); Mean Corpuscular HGB Conc 32.8 g/dl (32-36); Mean Corpuscular Hemoglobin 29.5 pg (26-34); Mean Corpuscular Volume 89.7 fl (80-100); Monocytes Absolute Auto 0.6 K/mm3 (0.1-0.6); Monocytes Percent Auto 5.6 % (2.6-8.5); Neutrophils Absolute Auto 8.2 K/mm3 (1.3-6.7); Neutrophils Percent Auto 81.7 % (45.5-73.1); Platelet Count Result 185 k/mm3 (150-375); Red Blood Count 2.92 M/mm3 (4.2-5.4); Red Cell Distribution Width 15.5 % (11.5-14.5); White Blood Count 10.1 K/mm3 (4.5-10.0)
[2024-10-15 05:49] LABS: Alanine Aminotransferase 26 U/L (6-35); Albumin Level 2.5 g/dL (3.5-5.1); Alkaline Phosphatase 93 U/L (38-126); Anion Gap 5 mmol/L (4-12); Aspartate Amino Transferase 49 U/L (14-36); Bilirubin,Total 0.4 mg/dL (0.2-1.3); Blood Urea Nitrogen 40 mg/dL (7-17); Calcium 7.8 mg/dL (8.4-10.2); Carbon Dioxide 28 mmol/L (22-30); Chloride 102 mmol/L (98-107); Estimated CRCL calculation 24 ml/min; Estimated Glomerular Filt Rate 31; Glucose 118 mg/dL (65-110); Potassium 3.5 mmol/L (3.4-5.0); Sodium 135 mmol/L (137-145)
[2024-10-15 06:00] VITALS: BP 135/59; PULSE 77; RESP 16; TEMP 36.8; O2SAT 96
[2024-10-15] MEDS: HEPARIN SODIUM 5,000 UNITS/ML VIAL 5000 UNITS SUB-Q ×3 (06:10→21:07)
--- NOTE | 2024-10-15 07:09 | P.PNUR_ITS ---
Progress Note: A&P Assessment and Plan (1) Emphysematous cystitis: Code(s): N30.80 - Other cystitis without hematuria Status: Acute (2) Hydronephrosis, left: Code(s): N13.30 - Unspecified hydronephrosis Status: Acute Assessment and Plan: * Repeat CT scan now with suggestive possible enterovesical fistula. * Will plan cystoscopy - probably can't get scheduled until . Will also plan bilat. retrograde pyelography to check on mild hydronephrosis seen on initial CT (which has now improved). Subjective Subjective Date/Time Seen: 10/15/24 07:09 Interval history: Comfortable, less pelvic discomfort Review of Systems Review of Systems: All systems reviewed & are unremarkable except as noted in HPI and below Exam Const: General: no acute distress Resp: Effort & Inspection: normal respiratory effort GI: Inspection: non-distended GI Palp: No abdominal tenderness and No Guarding due to palpation present (GI) Auscultation: normal bowel sounds Objective Data Vital Signs Vital Signs: Vital Signs - 24 hr 10/14/24 08:33 10/14/24 14:00 10/14/24 20:00 Temperature 97.8 F Pulse Rate 72 Respiratory Rate 18 16 Blood Pressure 130/59 L Pulse Oximetry 100 99 Oxygen Delivery Room Air Room Air 10/14/24 21:09 10/15/24 06:00 Temperature 98.7 F 98.2 F Pulse Rate 86 77 Respiratory Rate 16 16 Blood Pressure 158/59 H 135/59 L Pulse Oximetry 95 96 Oxygen Delivery Intake/Output Intake/Output: Intake & Output 10/12/24 10/13/24 10/14/24 10/15/24 23:59 23:59 23:59 23:59 Intake Total 4045 2203.7 2150 480 Output Total 2175 1250 1950 1200 Balance 1870 953.7 200 -720 Meds/Results Medications: Active Medications Generic Name Dose Route Start Last Admin Trade Name Freq PRN Reason Stop Dose Admin Acetaminophen 650 mg 10/09/24 15:44 10/13/24 12:32 Acetaminophen 325 Mg Tablet PO 650 mg Q6H PRN Administration Pain Rated 5 or Less, Fever Albuterol/Ipratropium 3 ml 10/09/24 14:33 Ipratropium 0.5 Mg/Albuterol Sulfate 2.5 Mg Ampul.Neb 3 Ml NEBULIZE Q6HRT PRN Shortness Of Breath Or Wheezing Ascorbic Acid 1,000 mg 10/10/24 09:00 10/14/24 08:32 Ascorbic Acid 500 Mg Tablet PO 1,000 mg DAILY RYAN Administration Aspirin 81 mg 10/10/24 09:00 10/14/24 08:31 Aspirin 81 Mg Enteric Tablet PO 11/09/24 08:59 81 mg DAILY RYAN Administration Atorvastatin Calcium 40 mg 10/09/24 21:00 10/14/24 20:58 Atorvastatin 40 Mg Tablet PO 40 mg QHS RYAN Administration Benzocaine 1 lozenge 10/09/24 14:33 Benzocaine/Menthol (*Bkc) 18 Ea Lozenge PO PRN PRN Sore Throat Benzonatate 100 mg 10/09/24 14:33 Benzonatate 100 Mg Capsule PO TID PRN Cough Dextrose 12.5 gm 10/09/24 13:29 Dextrose 50% 25 Gm/50 Ml Syringe IV PUSH PRN PRN Hypoglycemia Protocol Docusate Sodium 100 mg 10/10/24 09:00 10/14/24 08:32 Docusate Sodium 100 Mg Capsule PO 100 mg DAILY RYAN Administration Fentanyl Citrate 25 mcg 10/09/24 15:44 Fentanyl Citrate Inj (*Crx) 100 Mcg/2 Ml Vial IV PUSH Q4H PRN Pain Rated 6 or Greater Ferrous Sulfate 325 mg 10/10/24 09:00 10/14/24 08:31 Ferrous Sulfate [address] PO 11/09/24 08:59 325 mg DAILY RYAN Administration Fluoxetine HCl 40 mg 10/10/24 09:00 10/14/24 08:31 Fluoxetine Hcl 20 Mg Capsule PO 40 mg DAILY RYAN Administration Glucagon 1 mg 10/09/24 13:29 Glucagon For Inj 1 Mg Vial IM PRN PRN Hypoglycemia Protocol Glucose 15 gm 10/09/24 13:29 10/13/24 08:12 Glucose Oral Gel 15 Gm Of Glucse In 37.5 Gm Tube PO 15 gm PRN PRN Administration Hypoglycemia Protocol Guaifenesin 600 mg 10/09/24 15:00 10/14/24 20:58 Guaifenesin 12 Hr 600 Mg Tabcr PO 600 mg Q12HR RYAN Administration Heparin Sodium (Porcine) 5,000 units 10/10/24 22:00 10/15/24 06:10 Heparin Sodium 5,000 Units/Ml Vial SUB-Q 5,000 units Q8HR RYAN Administration Dextrose 1,000 mls @ 100 mls/hr 10/09/24 13:29 Dextrose 5% 1,000 Ml IVPB PRN PRN Hypoglycemia Protocol Ceftriaxone Sodium 2 gm in 100 mls @ 200 mls/hr 10/11/24 09:00 10/14/24 09:03 Rocephin 2 Gm/Ns 100 Ml IVPB Infused DAILY RYAN Infusion Insulin Aspart 3 units 10/09/24 17:00 10/12/24 18:15 Insulin Aspart (*Bkc) 100 Units/Ml SUB-Q 11/08/24 16:59 Not Given TIDWM RYAN Insulin Aspart 2 - 5 units 10/13/24 08:00 10/14/24 16:44 Insulin Aspart (*Bkc) 100 Units/Ml SUB-Q Not Given TIDWM [facility] Protocol Insulin Glargine 10 units 10/13/24 21:00 Insulin Glargine (*Bkc) 100 Units/Ml SUB-Q QHS [facility] Multivitamins/Calcium 1 tablet 10/10/24 09:00 10/14/24 08:32 Therapeutic Multivitamins/Minerals Tab (*Bkc) PO 1 tablet DAILY RYAN Administration Ondansetron HCl 4 mg 10/09/24 09:54 10/14/24 13:03 Ondansetron Inj 4 Mg/2 Ml Vial IV PUSH 4 mg Q4H PRN Administration Nausea Pantoprazole Sodium 40 mg 10/09/24 21:00 10/14/24 20:58 Pantoprazole 40 Mg Tablet PO 40 mg Q12HR RYAN Administration Vitamin D 1,000 units 10/10/24 09:00 10/14/24 08:32 Cholecalciferol 1,000 Units Tablet PO 1,000 units DAILY RYAN Administration Radiology Results: ITS Impressions Chest X-Ray 10/09/24 09:14 IMPRESSION: 1. Small left pleural effusion with mild left basilar opacities which could represent associated atelectasis or pneumonia. Renal Ultrasound 10/09/24 14:29 IMPRESSION: 1. Mild left hydronephrosis. Abdomen/Pelvis CT 10/14/24 16:15 IMPRESSION: Extraluminal air is identified within the deep pelvis, an interval change from previous examination. Free fluid is now identified within the pelvis surrounding this area of extraluminal air, for which a contained perforation is suspected. 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 These findings were discussed with Dr. Brown at 4:55 PM on 10/14/2024 CT cystogram may elucidate these findings clearer, if the patient is clinically able. Labs Labs: Laboratory Results - last 24 hr 10/14/24 10/14/24 10/14/24 08:00 11:58 16:32 WBC RBC Hgb Hct MCV MCH MCHC RDW Plt Count MPV Immature Gran % (Auto) Neut % (Auto) Lymph % (Auto) [place] % (Auto) Eos % (Auto) Baso % (Auto) Lymph # (Auto) [place] # (Auto) Eos # (Auto) Baso # (Auto) Abs Immat Gran (auto) Absolute Neuts (auto) Absolute Nucleated RBC Nucleated RBC % Sodium Potassium Chloride Carbon Dioxide Anion Gap BUN Creatinine Estim Creat Clear Calc Estimated GFR Glucose POC Capillary Glucose 90 130 H 141 H Calcium Magnesium Total Bilirubin AST ALT Alkaline Phosphatase Total Protein Albumin 10/14/24 10/15/24 19:59 05:05 WBC 10.1 H RBC 2.92 L Hgb 8.6 L Hct 26.2 L MCV 89.7 MCH 29.5 MCHC 32.8 RDW 15.5 H Plt Count 185 MPV 11.0 H Immature Gran % (Auto) 1.5 H Neut % (Auto) 81.7 H Lymph % (Auto) 9.5 L [place] % (Auto) 5.6 Eos % (Auto) 1.5 Baso % (Auto) 0.2 Lymph # (Auto) 0.96 [place] # (Auto) 0.6 Eos # (Auto) 0.2 Baso # (Auto) 0.0 Abs Immat Gran (auto) 0.15 H Absolute Neuts (auto) 8.2 H Absolute Nucleated RBC 0.000 Nucleated RBC % 0.0 Sodium 135 L Potassium 3.5 Chloride 102 Carbon Dioxide 28 Anion Gap 5 BUN 40 H Creatinine 1.60 H Estim Creat Clear Calc 24 Estimated GFR 31 L Glucose 118 H POC Capillary Glucose 186 H Calcium 7.8 L Magnesium 2.0 Total Bilirubin 0.4 AST 49 H ALT 26 Alkaline Phosphatase 93 Total Protein 6.0 L Albumin 2.5 L
[2024-10-15 08:07] LABS: Glucose Point of Care 87 mg/dl (65-105)
[2024-10-15] MEDS: ASCORBIC ACID 500 MG TABLET 1000 MG PO (08:26)
[2024-10-15] MEDS: CHOLECALCIFEROL 1,000 UNITS TABLET 1000 UNITS PO (08:26)
[2024-10-15] MEDS: cefTRIAXone 2 GM/NS 100 ML 2 GM/100 ML BAG IVPB (08:27)
[2024-10-15] MEDS: ASPIRIN 81 MG ENTERIC TABLET PO (08:27)
[2024-10-15] MEDS: DOCUSATE SODIUM 100 MG CAPSULE PO (08:27)
[2024-10-15] MEDS: THERAPEUTIC MULTIVITAMINS/MINERALS TAB (*BKC) 1 TABLET PO (08:27)
[2024-10-15] MEDS: PANTOPRAZOLE 40 MG TABLET PO ×2 (08:27→21:07)
[2024-10-15] MEDS: FLUoxetine HCL 20 MG CAPSULE 40 MG PO (08:27)
[2024-10-15] MEDS: guaiFENesin 12 HR 600 MG TABCR PO ×2 (08:27→21:07)
[2024-10-15] MEDS: FERROUS SULFATE 325 MG TABLET DR PO (08:27)
[2024-10-15] MEDS: ONDANSETRON INJ 4 MG/2 ML VIAL IV PUSH ×2 (09:06→13:17)
[2024-10-15] MEDS: metroNIDAZOLE 500 MG TABLET PO ×2 (11:25→21:07)
[2024-10-15 11:45] LABS: Glucose Point of Care 139 mg/dl (65-105)
--- NOTE | 2024-10-15 12:36 | PM.CNGS ---
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 - Vesicointestinal fistula Status: Acute Assessment and Plan: highly suggestive on CT scan, agree with CT cystogram, urology planning cystoscopy later this week, continue antibiotics, exam improved since admission (2) Acute UTI: Code(s): N39.0 - Urinary tract infection, site not specified Status: Acute Assessment and Plan: continue antibiotics, likely secondary to above (3) Type 2 diabetes mellitus with hyperglycemia, with long-term current use of insulin: Code(s): E11.65 - Type 2 diabetes mellitus with hyperglycemia; Z79.4 - skilled nursing (current) use of insulin Status: Chronic Assessment and Plan: continue management per primary team History of Present Illness Consult details Consult date: 10/15/24 Reason for consult: abdominal pain Requesting physician: Freddy Brown MD Narrative: The patient is a 79-year-old female with multiple med issues including HTN, DM that initially was admitted with sepsis secondary to UTI and pneumonia. The patient has been on broad-spectrum antibiotics and has improved. Repeat CT scan yesterday was suggestive of more free fluid in her pelvis and a enterovesicular fistula. Given these findings, General surgery has been consulted. Of note, the patient reports her lower abdominal pain has improved since admission. She has been able to tolerate a diabetic diet without issue. Review of Systems Review of Systems: All systems reviewed & are unremarkable except as noted in HPI and below PMFSH Past Medical History Medical History Anxiety and depression Arthritis Debility Diabetic neuropathy associated with diabetes mellitus due to underlying condition with A1C 7.5% 04/03/2024 Diabetic peripheral neuropathy Endometrial cancer (2009) s/p hysterectomy and radiation Essential (primary) hypertension Family history of colon cancer in father Foot drop, left Gastric ulcer Helicobacter pylori gastritis History of stroke with residual deficit (~01/2018) left sided weakness Hyperlipidemia, unspecified Ileus, postoperative Major depressive disorder, single episode, unspecified NSAID long-term use Renal and ureteric calculus (06/2021) Type 2 diabetes, uncontrolled, with neuropathy With A1c 04/03/2024 7.5% Vertigo Vitamin D deficiency Surgical History Surgical History History of cholecystectomy History of hysterectomy History of total right knee replacement (2009) Family History Family History Father Family history of malignant neoplasm Hypertension Carcinoma of colon Family history of diabetes mellitus in first degree relative Mother Hypertension Cerebrovascular accident Sibling Hypertension Diabetes mellitus Cerebrovascular accident Other Family history of cardiovascular disease Social History Social History Social History: The patient lives at home with a nephew and his girlfriend. She is a lifelong nonsmoker and does not drink alcohol or use illicit substances. She had 1 son who an accidental . Code status: Full code Surrogate decision maker: Katie Rodriguez (sister) Smoking status: Never smoker Alcohol intake: never Substance use: never Substance use type: does not use Do You Feel Safe in your Home?: Yes Lack of Transportation: No Lack of Food: Never True Current Housing: I Have Housing Concerned About Future Housing: No Difficulty Paying Gas/Electric Bills: No Difficulty Paying for Meds: No Currently Unemployed: No Education: High School Diploma/GED Difficulty w/ Childcare or Family Care: No Living arrangements: with family Gender identity (if verbalized by the patient): Female Sexual Orientation (if Verbalized by the Patient): Straight or Heterosexual Spiritual care concerns: No Meds Home Medications and Allergies Home Medications Medication Instructions Recorded Confirmed Type ferrous sulfate 325 mg (65 mg 325 mg PO DAILY 10/11/19 10/09/24 History iron) tablet [id number] 8 mg-folic 400 1 tablet PO DAILY 11/25/21 10/09/24 History mcg-K 50 mcg-lutein 300 mcg tablet (Centrum Silver Women) aspirin 81 mg tablet 81 mg PO DAILY 12/16/21 10/09/24 History cholecalciferol (vitamin D3) 125 125 mcg PO DAILY 04/03/24 10/09/24 History mcg (5,000 unit) capsule ascorbic acid (vitamin C) 500 mg 1,000 mg PO DAILY 30 days #60 tabs 04/14/24 10/09/24 Rx tablet (Vitamin C) docusate sodium 100 mg capsule 100 mg PO DAILY 30 days #30 caps 04/14/24 10/09/24 Rx pantoprazole 40 mg tablet,delayed 40 mg PO Q12H 30 days #60 tabs 04/14/24 10/09/24 Rx release fluoxetine 40 mg capsule 40 mg PO DAILY 07/23/24 10/09/24 History atorvastatin 40 mg tablet 40 mg PO QHS #90 tabs 08/20/24 10/09/24 Rx pen needle, diabetic 32 gauge x #100 ea 09/03/24 10/09/24 Rx 1/4 (BD Ultra-Fine Micro Pen Needle) amlodipine 5 mg tablet 5 mg PO DAILY #30 tabs 10/14/24 Rx amoxicillin 500 mg-potassium 1 tablet PO Q8H #15 tabs 10/14/24 Rx clavulanate 125 mg tablet guaifenesin 600 mg tablet, 600 mg PO Q12HR #30 tabs 10/14/24 Rx extended release 12 hr (Mucus Relief ER) insulin aspart U-100 100 unit/mL 2 - 5 unit subcut TIDWM #10 mL 10/14/24 Rx subcutaneous solution (Novolog U-100 Insulin aspart) Allergies Allergy/AdvReac Type Severity Reaction Status Date / Time morphine AdvReac Unknown Nausea and Verified 07/23/24 14:51 Vomiting Vital Signs Vital Signs - 24 hr 10/14/24 14:00 10/14/24 20:00 10/14/24 21:09 Temperature 36.6 C 37.1 C Pulse Rate 72 86 Respiratory Rate 16 16 Blood Pressure 130/59 L 158/59 H Pulse Oximetry 99 95 Oxygen Delivery Room Air 10/15/24 06:00 10/15/24 09:10 Temperature 36.8 C Pulse Rate 77 Respiratory Rate 16 Blood Pressure 135/59 L Pulse Oximetry 96 Oxygen Delivery Room Air Exam Const: General: cooperative, comfortable, no acute distress and ill appearing HENMT: Head: normal to inspection, normocephalic and atraumatic Eyes: General: appearance normal, both eyes and all related structures Resp: Auscultation: clear to auscultation bilaterally Cardio: Rate: regular rate Rhythm: regular rhythm GI: Inspection: normal to inspection and non-distended GI Palp: Yes abdominal tenderness, Yes Soft to palpation, No Guarding due to palpation present (GI) and No Rigid due to palpation Skin: General skin exam: normal color and no rashes or lesions noted Neuro: General: patient oriented x3 and CN's II-XI intact bilaterally Extrem: General: normal to inspection and full ROM Results Labs 10/15/24 05:05 10/15/24 05:05 Labs: Abnormal lab results 10/14/24 10/14/24 10/15/24 Range/Units 16:32 19:59 05:05 WBC 10.1 H (4.5-10.0) K/mm3 RBC 2.92 L (4.2-5.4) M/mm3 Hgb 8.6 L (12.0-15.0) g/dL Hct 26.2 L (37.0-47.0) % RDW 15.5 H (11.5-14.5) % MPV 11.0 H (7.4-10.4) fl Immature Gran % (Auto) 1.5 H (0-0.5) % Neut % (Auto) 81.7 H (45.5-73.1) % Lymph % (Auto) 9.5 L (18.3-44.2) % Abs Immat Gran (auto) 0.15 H (0.00-0.031) K/mm3 Absolute Neuts (auto) 8.2 H (1.3-6.7) K/mm3 Sodium 135 L (137-145) mmol/L BUN 40 H (7-17) mg/dL Creatinine 1.60 H (0.7-1.0) mg/dL Estimated GFR 31 L (59 - ) Glucose 118 H (65-110) mg/dL POC Capillary Glucose 141 H 186 H (65-105) mg/dl Calcium 7.8 L (8.4-10.2) mg/dL AST 49 H (14-36) U/L Total Protein 6.0 L (6.3-8.2) g/dL Albumin 2.5 L (3.5-5.1) g/dL 10/15/24 Range/Units 11:41 WBC (4.5-10.0) K/mm3 RBC (4.2-5.4) M/mm3 Hgb (12.0-15.0) g/dL Hct (37.0-47.0) % RDW (11.5-14.5) % MPV (7.4-10.4) fl Immature Gran % (Auto) (0-0.5) % Neut % (Auto) (45.5-73.1) % Lymph % (Auto) (18.3-44.2) % Abs Immat Gran (auto) (0.00-0.031) K/mm3 Absolute Neuts (auto) (1.3-6.7) K/mm3 Sodium (137-145) mmol/L BUN (7-17) mg/dL Creatinine (0.7-1.0) mg/dL Estimated GFR (59 - ) Glucose (65-110) mg/dL POC Capillary Glucose 139 H (65-105) mg/dl Calcium (8.4-10.2) mg/dL AST (14-36) U/L Total Protein (6.3-8.2) g/dL Albumin (3.5-5.1) g/dL Diabetes panel 10/15/24 Range/Units 05:05 Sodium 135 L (137-145) mmol/L Potassium 3.5 (3.4-5.0) mmol/L Chloride 102 (98-107) mmol/L Carbon Dioxide 28 (22-30) mmol/L BUN 40 H (7-17) mg/dL Creatinine 1.60 H (0.7-1.0) mg/dL Glucose 118 H (65-110) mg/dL Calcium 7.8 L (8.4-10.2) mg/dL AST 49 H (14-36) U/L ALT 26 (6-35) U/L Alkaline Phosphatase 93 (38-126) U/L Total Protein 6.0 L (6.3-8.2) g/dL Albumin 2.5 L (3.5-5.1) g/dL Calcium panel 10/15/24 Range/Units 05:05 Calcium 7.8 L (8.4-10.2) mg/dL Albumin 2.5 L (3.5-5.1) g/dL Pituitary panel 10/15/24 Range/Units 05:05 Sodium 135 L (137-145) mmol/L Potassium 3.5 (3.4-5.0) mmol/L Chloride 102 (98-107) mmol/L Carbon Dioxide 28 (22-30) mmol/L BUN 40 H (7-17) mg/dL Creatinine 1.60 H (0.7-1.0) mg/dL Glucose 118 H (65-110) mg/dL Calcium 7.8 L (8.4-10.2) mg/dL Adrenal panel 10/15/24 Range/Units 05:05 Sodium 135 L (137-145) mmol/L Potassium 3.5 (3.4-5.0) mmol/L Chloride 102 (98-107) mmol/L Carbon Dioxide 28 (22-30) mmol/L BUN 40 H (7-17) mg/dL Creatinine 1.60 H (0.7-1.0) mg/dL Glucose 118 H (65-110) mg/dL Calcium 7.8 L (8.4-10.2) mg/dL Total Bilirubin 0.4 (0.2-1.3) mg/dL AST 49 H (14-36) U/L ALT 26 (6-35) U/L Alkaline Phosphatase 93 (38-126) U/L Total Protein 6.0 L (6.3-8.2) g/dL Albumin 2.5 L (3.5-5.1) g/dL All other labs normal. Imaging Abdomen CT scan report/results: report reviewed and image reviewed
--- NOTE | 2024-10-15 12:39 | P.CONGS_ITS ---
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 Repeat CT yesterday now showing possible enterovesical fistula. She has been clinically improving overall with much less suprapubic pain. Abdominal exam benign with no diffuse peritoneal signs. She is currently stable with no indication for urgent surgical intervention. We would agree with continuing IV antibiotics for now. Urology is planning cystoscopy . Will await these results and continue to follow. (2) Emphysematous cystitis: Code(s): N30.80 - Other cystitis without hematuria Status: Acute (3) Hydronephrosis, left: Code(s): N13.30 - Unspecified hydronephrosis Status: Acute (4) JEFFERY (acute kidney injury): Code(s): N17.9 - Acute kidney failure, unspecified Status: Acute Assessment and Plan: Improved since admission, trend labs (5) Type 2 diabetes mellitus with hyperglycemia, with long-term current use of insulin: Code(s): E11.65 - Type 2 diabetes mellitus with hyperglycemia; Z79.4 - halfway (current) use of insulin Status: Chronic (6) Sepsis: Qualifiers: Sepsis acute organ dysfunction status: unspecified Sepsis type: sepsis due to unspecified organism Qualified Code(s): A41.9 - Sepsis, unspecified organism Code(s): A41.9 - Sepsis, unspecified organism Status: Acute Assessment and Plan: Initially presented with sepsis, felt to be urosepsis with now E.coli bacteremia. WBC down from 37 on admission to 10.1 today. She did come down to normal and bumped up to 12 yesterday. Currently on IV Rocephin and Flagyl, which would cover for diverticulitis. Plan I have discussed the patient's case and plan of care with Dr. Hankins. Thank you for allowing us to see the patient in consultation and we will continue to follow along with you. History of Present Illness Consult details Consult date: 10/15/24 Reason for consult: other (Colonic perforation contained with possible colovesical fistula) Requesting physician: Freddy Brown MD Narrative: This is a 79-year-old woman who was admitted with generalized weakness 6 days ago. Workup initially showed evidence of JEFFERY, sepsis, and a urinary tract infection with CT evidence of possible emphysematous cystitis and left hydronephrosis but no apparent ureteral stones. Urology has been following. There is also question of possible pneumonia, which has been treated with antibiotics. Blood and urine cultures have grown E coli. JEFFERY has improved. She ended up having a repeat CT scan of the abdomen and pelvis yesterday due to nausea and vomiting, which showed extraluminal air identified within the deep pelvis, free fluid in the pelvis surrounding this area of extraluminal air for which a contained perforation is expected that appears to be associated with the dome of the bladder, with suspicion of an enterovesicular fistula. Our service was consulted due to the CT findings. She is now seen on the medical floor. She reports initially having a lot of pelvic pain on admission, which has significantly improved. She denies any abdominal pain at the time of my exam. She points to the suprapubic area in terms of the location of her pain when she was first admitted. She denies any specific complaints currently. Urology is planning cystoscopy with bilateral retrograde pyelogram on . She denies a history of diverticulitis and has never had a colonoscopy in the past. Review of Systems Review of Systems: All systems reviewed & are unremarkable except as noted in HPI and below PMFSH Past Medical History Medical History Anxiety and depression Arthritis Debility Diabetic neuropathy associated with diabetes mellitus due to underlying condition with A1C 7.5% 04/03/2024 Diabetic peripheral neuropathy Endometrial cancer (2009) s/p hysterectomy and radiation Essential (primary) hypertension Family history of colon cancer in father Foot drop, left Gastric ulcer Helicobacter pylori gastritis History of stroke with residual deficit (~01/2018) left sided weakness Hyperlipidemia, unspecified Ileus, postoperative Major depressive disorder, single episode, unspecified NSAID long-term use Renal and ureteric calculus (06/2021) Type 2 diabetes, uncontrolled, with neuropathy With A1c 04/03/2024 7.5% Vertigo Vitamin D deficiency Surgical History Surgical History History of cholecystectomy History of hysterectomy History of total right knee replacement (2009) Family History Family History Father Family history of malignant neoplasm Hypertension Carcinoma of colon Family history of diabetes mellitus in first degree relative Mother Hypertension Cerebrovascular accident Sibling Hypertension Diabetes mellitus Cerebrovascular accident Other Family history of cardiovascular disease Social History Social History Social History: The patient lives at home with a nephew and his girlfriend. She is a lifelong nonsmoker and does not drink alcohol or use illicit substances. She had 1 son who an accidental . Code status: Full code Surrogate decision maker: Katie Rodriguez (sister) Smoking status: Never smoker Alcohol intake: never Substance use: never Substance use type: does not use Do You Feel Safe in your Home?: Yes Lack of Transportation: No Lack of Food: Never True Current Housing: I Have Housing Concerned About Future Housing: No Difficulty Paying Gas/Electric Bills: No Difficulty Paying for Meds: No Currently Unemployed: No Education: High School Diploma/GED Difficulty w/ Childcare or Family Care: No Living arrangements: with family Gender identity (if verbalized by the patient): Female Sexual Orientation (if Verbalized by the Patient): Straight or Heterosexual Spiritual care concerns: No Meds Home Medications and Allergies Home Medications Medication Instructions Recorded Confirmed Type ferrous sulfate 325 mg (65 mg 325 mg PO DAILY 10/11/19 10/09/24 History iron) tablet widyqyjm-ucko-kcjp 8 mg-folic 400 1 tablet PO DAILY 11/25/21 10/09/24 History mcg-K 50 mcg-lutein 300 mcg tablet (Centrum Silver Women) aspirin 81 mg tablet 81 mg PO DAILY 12/16/21 10/09/24 History cholecalciferol (vitamin D3) 125 125 mcg PO DAILY 04/03/24 10/09/24 History mcg (5,000 unit) capsule ascorbic acid (vitamin C) 500 mg 1,000 mg PO DAILY 30 days #60 tabs 04/14/24 10/09/24 Rx tablet (Vitamin C) docusate sodium 100 mg capsule 100 mg PO DAILY 30 days #30 caps 04/14/24 10/09/24 Rx pantoprazole 40 mg tablet,delayed 40 mg PO Q12H 30 days #60 tabs 04/14/24 10/09/24 Rx release fluoxetine 40 mg capsule 40 mg PO DAILY 07/23/24 10/09/24 History atorvastatin 40 mg tablet 40 mg PO QHS #90 tabs 08/20/24 10/09/24 Rx pen needle, diabetic 32 gauge x #100 ea 09/03/24 10/09/24 Rx 1/4 (BD Ultra-Fine Micro Pen Needle) amlodipine 5 mg tablet 5 mg PO DAILY #30 tabs 10/14/24 Rx amoxicillin 500 mg-potassium 1 tablet PO Q8H #15 tabs 10/14/24 Rx clavulanate 125 mg tablet guaifenesin 600 mg tablet, 600 mg PO Q12HR #30 tabs 10/14/24 Rx extended release 12 hr (Mucus Relief ER) insulin aspart U-100 100 unit/mL 2 - 5 unit subcut TIDWM #10 mL 10/14/24 Rx subcutaneous solution (Novolog U-100 Insulin aspart) Allergies Allergy/AdvReac Type Severity Reaction Status Date / Time morphine AdvReac Unknown Nausea and Verified 07/23/24 14:51 Vomiting Vital Signs Vital Signs - 24 hr 10/14/24 14:00 10/14/24 20:00 10/14/24 21:09 Temperature 97.8 F 98.7 F Pulse Rate 72 86 Respiratory Rate 16 16 Blood Pressure 130/59 L 158/59 H Pulse Oximetry 99 95 Oxygen Delivery Room Air 10/15/24 06:00 10/15/24 09:10 Temperature 98.2 F Pulse Rate 77 Respiratory Rate 16 Blood Pressure 135/59 L Pulse Oximetry 96 Oxygen Delivery Room Air Exam Const: General: comfortable and no acute distress Nutritional Appearance: obese Orientation/consciousness: patient oriented x3 HENMT: Head: normocephalic and atraumatic Ears: hearing grossly normal bilaterally Mouth: Yes moist mucous membranes Eyes: General: appearance normal, both eyes and all related structures Pupils: Equal, round and reactive pupils present Neck: Neck: normal visual inspection and full ROM Resp: Effort & Inspection: no respiratory distress Auscultation: clear to auscultation bilaterally Cardio: Rate: regular rate Rhythm: regular rhythm Heart sounds: S1 normal heart sound present and S2 normal heart sound present GI: Inspection: non-distended, obesity and no visible herniation GI Palp: Yes Soft to palpation, Yes Tenderness to palpation present (GI) (focally tender in the suprapubic area with mild RLQ TTP as well), No Guarding due to palpation present (GI) and No Rebound tenderness present Auscultation: normal bowel sounds Skin: General skin exam: normal color Neuro: General: moves all extremities and no focal motor deficits Speech: normal speech Motor exam (neuro): 5/5 motor strength present throughout Extrem: General: normal to inspection and no edema Psych: Mental Status: mental status grossly normal Attitude: cooperative Insight: Good insight present (Psych) Judgement: Good judgement present (Psych) Results Labs 10/15/24 05:05 10/15/24 05:05 Labs: Abnormal lab results 10/14/24 10/14/24 10/15/24 Range/Units 16:32 19:59 05:05 WBC 10.1 H (4.5-10.0) K/mm3 RBC 2.92 L (4.2-5.4) M/mm3 Hgb 8.6 L (12.0-15.0) g/dL Hct 26.2 L (37.0-47.0) % RDW 15.5 H (11.5-14.5) % MPV 11.0 H (7.4-10.4) fl Immature Gran % (Auto) 1.5 H (0-0.5) % Neut % (Auto) 81.7 H (45.5-73.1) % Lymph % (Auto) 9.5 L (18.3-44.2) % Abs Immat Gran (auto) 0.15 H (0.00-0.031) K/mm3 Absolute Neuts (auto) 8.2 H (1.3-6.7) K/mm3 Sodium 135 L (137-145) mmol/L BUN 40 H (7-17) mg/dL Creatinine 1.60 H (0.7-1.0) mg/dL Estimated GFR 31 L (59 - ) Glucose 118 H (65-110) mg/dL POC Capillary Glucose 141 H 186 H (65-105) mg/dl Calcium 7.8 L (8.4-10.2) mg/dL AST 49 H (14-36) U/L Total Protein 6.0 L (6.3-8.2) g/dL Albumin 2.5 L (3.5-5.1) g/dL 10/15/24 Range/Units 11:41 WBC (4.5-10.0) K/mm3 RBC (4.2-5.4) M/mm3 Hgb (12.0-15.0) g/dL Hct (37.0-47.0) % RDW (11.5-14.5) % MPV (7.4-10.4) fl Immature Gran % (Auto) (0-0.5) % Neut % (Auto) (45.5-73.1) % Lymph % (Auto) (18.3-44.2) % Abs Immat Gran (auto) (0.00-0.031) K/mm3 Absolute Neuts (auto) (1.3-6.7) K/mm3 Sodium (137-145) mmol/L BUN (7-17) mg/dL Creatinine (0.7-1.0) mg/dL Estimated GFR (59 - ) Glucose (65-110) mg/dL POC Capillary Glucose 139 H (65-105) mg/dl Calcium (8.4-10.2) mg/dL AST (14-36) U/L Total Protein (6.3-8.2) g/dL Albumin (3.5-5.1) g/dL Diabetes panel 10/15/24 Range/Units 05:05 Sodium 135 L (137-145) mmol/L Potassium 3.5 (3.4-5.0) mmol/L Chloride 102 (98-107) mmol/L Carbon Dioxide 28 (22-30) mmol/L BUN 40 H (7-17) mg/dL Creatinine 1.60 H (0.7-1.0) mg/dL Glucose 118 H (65-110) mg/dL Calcium 7.8 L (8.4-10.2) mg/dL AST 49 H (14-36) U/L ALT 26 (6-35) U/L Alkaline Phosphatase 93 (38-126) U/L Total Protein 6.0 L (6.3-8.2) g/dL Albumin 2.5 L (3.5-5.1) g/dL Calcium panel 10/15/24 Range/Units 05:05 Calcium 7.8 L (8.4-10.2) mg/dL Albumin 2.5 L (3.5-5.1) g/dL Pituitary panel 10/15/24 Range/Units 05:05 Sodium 135 L (137-145) mmol/L Potassium 3.5 (3.4-5.0) mmol/L Chloride 102 (98-107) mmol/L Carbon Dioxide 28 (22-30) mmol/L BUN 40 H (7-17) mg/dL Creatinine 1.60 H (0.7-1.0) mg/dL Glucose 118 H (65-110) mg/dL Calcium 7.8 L (8.4-10.2) mg/dL Adrenal panel 10/15/24 Range/Units 05:05 Sodium 135 L (137-145) mmol/L Potassium 3.5 (3.4-5.0) mmol/L Chloride 102 (98-107) mmol/L Carbon Dioxide 28 (22-30) mmol/L BUN 40 H (7-17) mg/dL Creatinine 1.60 H (0.7-1.0) mg/dL Glucose 118 H (65-110) mg/dL Calcium 7.8 L (8.4-10.2) mg/dL Total Bilirubin 0.4 (0.2-1.3) mg/dL AST 49 H (14-36) U/L ALT 26 (6-35) U/L Alkaline Phosphatase 93 (38-126) U/L Total Protein 6.0 L (6.3-8.2) g/dL Albumin 2.5 L (3.5-5.1) g/dL All other labs normal. Imaging Additional studies: ITS Impressions Chest X-Ray 10/09/24 09:14 IMPRESSION: 1. Small left pleural effusion with mild left basilar opacities which could represent associated atelectasis or pneumonia. Renal Ultrasound 10/09/24 14:29 IMPRESSION: 1. Mild left hydronephrosis. Abdomen/Pelvis CT 10/09/24 20:32 IMPRESSION: Left-sided hydroureteronephrosis without a clear source of obstruction. Additional findings consistent with emphysematous cystitis. ADDENDUM: 10/09/242103 These findings were discussed with Varsha Phipps APRN at 9:00 PM on 10/09/2024 Abdomen/Pelvis CT 10/14/24 16:15 IMPRESSION: Extraluminal air is identified within the deep pelvis, an interval change from previous examination. Free fluid is now identified within the pelvis surrounding this area of extraluminal air, for which a contained perforation is suspected. 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 These findings were discussed with Dr. Brown at 4:55 PM on 10/14/2024 CT cystogram may elucidate these findings clearer, if the patient is clinically able.
--- NOTE | 2024-10-15 13:43 | PCNFU ---
Nutrition Follow-Up Complete: Increased nutrient needs related to altered skin integrity as evidenced by DTPI to sacrum goal: PO intake improved to greater than 50% of meals and supplements Patient is progressing towards goal. We will continue current goal. Pt current nutrition is DBCC with Ensure Compact BID and Seth BID. Last recorded weight is 74.7 kg, 74.8 kg 10/14 Bowel Motility: +BM reported 10/14 Labs Reviewed: Glu 118, Cr 1.6, GFR 31, Alb 2.5, NA 135, BUN 40 Meds Noted: NovoLog, Colace, Vit D, Mucinex, Protonix Skin: Deep Tissue-saccum. Additional Notes: Patient remains on a DBCC diet. Intake has improved to > 50% of meals. Diet supplements of Seth BID and Ensure compact BID for wound healing. Plans for cystoscopy later this week. Urology and Surgery following. Agree with diet orders. Monitor intake, wt, labs, skin. Follow up in 5 days.
[2024-10-15 13:48] VITALS: BP 129/50; PULSE 74; RESP 18; TEMP 36.2; O2SAT 96
--- NOTE | 2024-10-15 13:52 | PC.NURSE ---
On 10/15/24, the student, [Meagan Vegas], provided care and completed [facility] documentation on this patient. I have reviewed the student's documentation and agree with the findings.
--- NOTE | 2024-10-15 14:09 | P.PNIM_ITS ---
Progress Note: A&P Assessment and Plan (1) Sepsis: Qualifiers: Sepsis acute organ dysfunction status: unspecified Sepsis type: sepsis due to unspecified organism Qualified Code(s): A41.9 - Sepsis, unspecified o rganism Code(s): A41.9 - Sepsis, unspecified organism Status: Acute Assessment and Plan: resolving WBC 12 from 37.2 on admission, HR wnl, and continue IVF and monitor lactic acid - suspected source: pneumonia and UTI on ceftriaxone and azithromycin on 10/09 blood culture positive for E coli concludes azithromycin Mild leukocytosis still persist (2) Acute UTI: Code(s): N39.0 - Urinary tract infection, site not specified Status: Acute Assessment and Plan: f/u urine culture which is Gram-negative bacilli likely E coli Continue Rocephin and IVF ivf stopped (3) Pneumonia: Qualifiers: Pneumonia type: due to unspecified organism Laterality: left Lung location: lower lobe of lung Qualified Code(s): J18.9 - Pneumonia, unspecified organism Code(s): J18.9 - Pneumonia, unspecified organism Status: Suspected Assessment and Plan: - CXR: small left pleural effusion with mild left basilar opacities which could represent associated atelectasis or pneumonia. MRSA negative Continue Rocephin and Azithromycin finished azithromycin (4) JEFFERY (acute kidney injury): Code(s): N17.9 - Acute kidney failure, unspecified Status: Acute Assessment and Plan: - creatinine 3.5 and GFR 13, previously 1.1 and GFR 48 on admission - renal ultrasound: mild left hydronephrosis monitor Is and Os Creatinine continues to improve continue IVF Urology consulted for left hydronephrosis Kasper catheter placed expected to improve with this Repeat CT with possible enterovesical fistula (5) Type 2 diabetes mellitus with hyperglycemia, with long-term current use of insulin: Code(s): E11.65 - Type 2 diabetes mellitus with hyperglycemia; 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 General surgery consulted as well as we consulted Urology Urology planning for cystoscopy Added Flagyl for anaerobic coverage Plan Thrombocytopenia: Likely due to sepsis. Will continue to monitor heparin on hold. thrombocytopenia improving E coli bacteremia Likely from UTI continue Monitoring blood cultures. Sensitive to ceftriaxone. repeat blood culture continue abx above Diet: Diabetic GI Prophylaxis: Continue home pantoprazole DVT Prophylaxis: Sq heparin on hold due to thrombocytopenia, resumed now. Lines: Peripheral Code Status: Full code Subjective Date/time seen: 10/15/24 14:09 Interval history: Intermittent abdominal discomfort reported. Tolerating diet. Urology planning for procedure. Review of Systems Review of Systems: All systems reviewed & are unremarkable except as noted in HPI and below Exam Narrative: APPEARANCE: well-appearing not in acute distress HEAD: normocephalic, atraumatic. EYES: PERRLA/EOMI, conjunctivae clear. NECK: Supple. No adenopathy, no masses. RESPIRATORY: Airway patent, respirations nonlabored. Clear to auscultation bilaterally, no rales, rhonchi, wheezing. CARDIOVASCULAR: Regular rate and rhythm without murmurs rubs or gallops. ABDOMINAL: Soft tender suprapubic area no distension MUSCULOSKELETAL: Moves all extremities. Strength/ROM intact, No edema, No calf tenderness. kasper in place NEURO: Alert. 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 Normal Color Objective Data Vital Signs Vital Signs: Vital Signs - 24 hr 10/14/24 20:00 10/14/24 21:09 10/15/24 06:00 Temperature 98.7 F 98.2 F Pulse Rate 86 77 Respiratory Rate 16 16 Blood Pressure 158/59 H 135/59 L Pulse Oximetry 95 96 Oxygen Delivery Room Air 10/15/24 09:10 10/15/24 13:48 Temperature 97.1 F L Pulse Rate 74 Respiratory Rate 18 Blood Pressure 129/50 L Pulse Oximetry 96 Oxygen Delivery Room Air Intake/Output Intake/Output: Intake & Output 10/12/24 10/13/24 10/14/24 10/15/24 23:59 23:59 23:59 23:59 Intake Total 4045 2203.7 2150 840 Output Total 2175 1250 1950 1200 Balance 1870 953.7 200 -360 Meds/Results Medications: Active Medications Generic Name Dose Route Start Last Admin Trade Name Freq PRN Reason Stop Dose Admin Acetaminophen 650 mg 10/09/24 15:44 10/13/24 12:32 Acetaminophen 325 Mg Tablet PO 650 mg Q6H PRN Administration Pain Rated 5 or Less, Fever Albuterol/Ipratropium 3 ml 10/09/24 14:33 Ipratropium 0.5 Mg/Albuterol Sulfate 2.5 Mg Ampul.Neb 3 Ml NEBULIZE Q6HRT PRN Shortness Of Breath Or Wheezing Ascorbic Acid 1,000 mg 10/10/24 09:00 10/15/24 08:26 Ascorbic Acid 500 Mg Tablet PO 1,000 mg DAILY RYAN Administration Aspirin 81 mg 10/10/24 09:00 10/15/24 08:27 Aspirin 81 Mg Enteric Tablet PO 11/09/24 08:59 81 mg DAILY RYAN Administration Atorvastatin Calcium 40 mg 10/09/24 21:00 10/14/24 20:58 Atorvastatin 40 Mg Tablet PO 40 mg QHS RYAN Administration Benzocaine 1 lozenge 10/09/24 14:33 Benzocaine/Menthol (*Bkc) 18 Ea Lozenge PO PRN PRN Sore Throat Benzonatate 100 mg 10/09/24 14:33 Benzonatate 100 Mg Capsule PO TID PRN Cough Dextrose 12.5 gm 10/09/24 13:29 Dextrose 50% 25 Gm/50 Ml Syringe IV PUSH PRN PRN Hypoglycemia Protocol Docusate Sodium 100 mg 10/10/24 09:00 10/15/24 08:27 Docusate Sodium 100 Mg Capsule PO 100 mg DAILY RYAN Administration Fentanyl Citrate 25 mcg 10/09/24 15:44 Fentanyl Citrate Inj (*Crx) 100 Mcg/2 Ml Vial IV PUSH Q4H PRN Pain Rated 6 or Greater Ferrous Sulfate 325 mg 10/10/24 09:00 10/15/24 08:27 Ferrous Sulfate [address] PO 11/09/24 08:59 325 mg DAILY RYAN Administration Fluoxetine HCl 40 mg 10/10/24 09:00 10/15/24 08:27 Fluoxetine Hcl 20 Mg Capsule PO 40 mg DAILY RYAN Administration Glucagon 1 mg 10/09/24 13:29 Glucagon For Inj 1 Mg Vial IM PRN PRN Hypoglycemia Protocol Glucose 15 gm 10/09/24 13:29 10/13/24 08:12 Glucose Oral Gel 15 Gm Of Glucse In 37.5 Gm Tube PO 15 gm PRN PRN Administration Hypoglycemia Protocol Guaifenesin 600 mg 10/09/24 15:00 10/15/24 08:27 Guaifenesin 12 Hr 600 Mg Tabcr PO 600 mg Q12HR RYAN Administration Heparin Sodium (Porcine) 5,000 units 10/10/24 22:00 10/15/24 13:17 Heparin Sodium 5,000 Units/Ml Vial SUB-Q 5,000 units Q8HR RYAN Administration Dextrose 1,000 mls @ 100 mls/hr 10/09/24 13:29 Dextrose 5% 1,000 Ml IVPB PRN PRN Hypoglycemia Protocol Ceftriaxone Sodium 2 gm in 100 mls @ 200 mls/hr 10/11/24 09:00 10/15/24 08:27 Rocephin 2 Gm/Ns 100 Ml IVPB 200 mls/hr DAILY RYAN Administration Insulin Aspart 3 units 10/09/24 17:00 10/12/24 18:15 Insulin Aspart (*Bkc) 100 Units/Ml SUB-Q 11/08/24 16:59 Not Given TIDWM [facility] Insulin Aspart 2 - 5 units 10/13/24 08:00 10/15/24 12:03 Insulin Aspart (*Bkc) 100 Units/Ml SUB-Q Not Given TIDWM [facility] Protocol Insulin Glargine 10 units 10/13/24 21:00 Insulin Glargine (*Bkc) 100 Units/Ml SUB-Q QHS [facility] Metronidazole 500 mg 10/15/24 12:00 10/15/24 11:25 Metronidazole 500 Mg Tablet PO 500 mg Q8HR RYAN Administration Multivitamins/Calcium 1 tablet 10/10/24 09:00 10/15/24 08:27 Therapeutic Multivitamins/Minerals Tab (*Bkc) PO 1 tablet DAILY RYAN Administration Ondansetron HCl 4 mg 10/09/24 09:54 10/15/24 13:17 Ondansetron Inj 4 Mg/2 Ml Vial IV PUSH 4 mg Q4H PRN Administration Nausea Pantoprazole Sodium 40 mg 10/09/24 21:00 10/15/24 08:27 Pantoprazole 40 Mg Tablet PO 40 mg Q12HR RYAN Administration Vitamin D 1,000 units 10/10/24 09:00 10/15/24 08:26 Cholecalciferol 1,000 Units Tablet PO 1,000 units DAILY RYAN Administration Radiology Results: ITS Impressions Chest X-Ray 10/09/24 09:14 IMPRESSION: 1. Small left pleural effusion with mild left basilar opacities which could represent associated atelectasis or pneumonia. Renal Ultrasound 10/09/24 14:29 IMPRESSION: 1. Mild left hydronephrosis. Abdomen/Pelvis CT 10/14/24 16:15 IMPRESSION: Extraluminal air is identified within the deep pelvis, an interval change from previous examination. Free fluid is now identified within the pelvis surrounding this area of extraluminal air, for which a contained perforation is suspected. 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 These findings were discussed with Dr. Brown at 4:55 PM on 10/14/2024 CT cystogram may elucidate these findings clearer, if the patient is clinically able. Labs Labs: Laboratory Results - last 24 hr 10/14/24 10/14/24 10/15/24 16:32 19:59 05:05 WBC 10.1 H RBC 2.92 L Hgb 8.6 L Hct 26.2 L MCV 89.7 MCH 29.5 MCHC 32.8 RDW 15.5 H Plt Count 185 MPV 11.0 H Immature Gran % (Auto) 1.5 H Neut % (Auto) 81.7 H Lymph % (Auto) 9.5 L [place] % (Auto) 5.6 Eos % (Auto) 1.5 Baso % (Auto) 0.2 Lymph # (Auto) 0.96 [place] # (Auto) 0.6 Eos # (Auto) 0.2 Baso # (Auto) 0.0 Abs Immat Gran (auto) 0.15 H Absolute Neuts (auto) 8.2 H Absolute Nucleated RBC 0.000 Nucleated RBC % 0.0 Sodium 135 L Potassium 3.5 Chloride 102 Carbon Dioxide 28 Anion Gap 5 BUN 40 H Creatinine 1.60 H Estim Creat Clear Calc 24 Estimated GFR 31 L Glucose 118 H POC Capillary Glucose 141 H 186 H Calcium 7.8 L Magnesium 2.0 Total Bilirubin 0.4 AST 49 H ALT 26 Alkaline Phosphatase 93 Total Protein 6.0 L Albumin 2.5 L 10/15/24 10/15/24 08:04 11:41 WBC RBC Hgb Hct MCV MCH MCHC RDW Plt Count MPV Immature Gran % (Auto) Neut % (Auto) Lymph % (Auto) [place] % (Auto) Eos % (Auto) Baso % (Auto) Lymph # (Auto) [place] # (Auto) Eos # (Auto) Baso # (Auto) Abs Immat Gran (auto) Absolute Neuts (auto) Absolute Nucleated RBC Nucleated RBC % Sodium Potassium Chloride Carbon Dioxide Anion Gap BUN Creatinine Estim Creat Clear Calc Estimated GFR Glucose POC Capillary Glucose 87 139 H Calcium Magnesium Total Bilirubin AST ALT Alkaline Phosphatase Total Protein Albumin
[2024-10-15 16:40] LABS: Glucose Point of Care 155 mg/dl (65-105)
[2024-10-15 19:51] LABS: Glucose Point of Care 204 mg/dl (65-105)
[2024-10-15 20:00] VITALS: O2SAT 100
[2024-10-15 21:03] VITALS: BP 144/60; PULSE 80; RESP 14; TEMP 37.2; O2SAT 100
[2024-10-15] MEDS: ATORVASTATIN 40 MG TABLET PO (21:07)
[2024-10-16] MEDS: HEPARIN SODIUM 5,000 UNITS/ML VIAL 5000 UNITS SUB-Q ×3 (05:38→20:55)
[2024-10-16] MEDS: metroNIDAZOLE 500 MG TABLET PO ×3 (05:38→20:54)
[2024-10-16 06:00] VITALS: BP 148/65; PULSE 72; RESP 16; TEMP 36.8; O2SAT 97
[2024-10-16 08:04] LABS: Glucose Point of Care 128 mg/dl (65-105)
[2024-10-16] MEDS: FERROUS SULFATE 325 MG TABLET DR PO (08:19)
[2024-10-16] MEDS: CHOLECALCIFEROL 1,000 UNITS TABLET 1000 UNITS PO (08:19)
[2024-10-16] MEDS: guaiFENesin 12 HR 600 MG TABCR PO ×2 (08:19→20:55)
[2024-10-16] MEDS: THERAPEUTIC MULTIVITAMINS/MINERALS TAB (*BKC) 1 TABLET PO (08:19)
[2024-10-16] MEDS: ASCORBIC ACID 500 MG TABLET 1000 MG PO (08:19)
[2024-10-16] MEDS: FLUoxetine HCL 20 MG CAPSULE 40 MG PO (08:19)
[2024-10-16] MEDS: PANTOPRAZOLE 40 MG TABLET PO ×2 (08:19→20:54)
[2024-10-16] MEDS: ASPIRIN 81 MG ENTERIC TABLET PO (08:19)
[2024-10-16] MEDS: DOCUSATE SODIUM 100 MG CAPSULE PO (08:19)
[2024-10-16] MEDS: cefTRIAXone 2 GM/NS 100 ML 2 GM/100 ML BAG IVPB (08:20)
[2024-10-16] MEDS: ONDANSETRON INJ 4 MG/2 ML VIAL IV PUSH ×2 (09:09→20:53)
--- NOTE | 2024-10-16 10:33 | PM.PNGS ---
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 Status: Acute Assessment and Plan: exam unchanged, susan diet, await cystoscopy per Urology (2) Acute UTI: Code(s): N39.0 - Urinary tract infection, site not specified Status: Acute Assessment and Plan: cont IV abx Subjective Subjective Date/Time Seen: 10/16/24 10:33 Interval history: c/o some diffuse abd pain, R>L Review of Systems Review of Systems: All systems reviewed & are unremarkable except as noted in HPI and below Exam Const: General: cooperative, no acute distress, ill appearing and obese Resp: Auscultation: clear to auscultation bilaterally Cardio: Rate: regular rate Rhythm: regular rhythm GI: GI Palp: Yes abdominal tenderness, Yes Soft to palpation, No Firmness to palpation present (GI), Yes Tenderness to palpation present (GI), No Guarding due to palpation present (GI) and No Rigid due to palpation Objective Data Vital Signs Vital Signs: Vital Signs - 24 hr 10/15/24 13:48 10/15/24 21:03 10/15/24 20:00 Temperature 36.2 C L 37.2 C Pulse Rate 74 80 Respiratory Rate 18 14 Blood Pressure 129/50 L 144/60 H Pulse Oximetry 96 100 100 Oxygen Delivery Room Air 10/16/24 06:00 Temperature 36.8 C Pulse Rate 72 Respiratory Rate 16 Blood Pressure 148/65 H Pulse Oximetry 97 Oxygen Delivery Intake/Output Intake/Output: Intake & Output 10/13/24 10/14/24 10/15/24 10/16/24 23:59 23:59 23:59 23:59 Intake Total 2203.7 2150 1180 720 Output Total 1250 1950 2600 1650 Balance 953.7 200 -1420 -930 Meds/Results Medications: Active Medications Generic Name Dose Route Start Last Admin Trade Name Freq PRN Reason Stop Dose Admin Acetaminophen 650 mg 10/09/24 15:44 10/13/24 12:32 Acetaminophen 325 Mg Tablet PO 650 mg Q6H PRN Administration Pain Rated 5 or Less, Fever Albuterol/Ipratropium 3 ml 10/09/24 14:33 Ipratropium 0.5 Mg/Albuterol Sulfate 2.5 Mg Ampul.Neb 3 Ml NEBULIZE Q6HRT PRN Shortness Of Breath Or Wheezing Ascorbic Acid 1,000 mg 10/10/24 09:00 10/16/24 08:19 Ascorbic Acid 500 Mg Tablet PO 1,000 mg DAILY RYAN Administration Aspirin 81 mg 10/10/24 09:00 10/16/24 08:19 Aspirin 81 Mg Enteric Tablet PO 11/09/24 08:59 81 mg DAILY RYAN Administration Atorvastatin Calcium 40 mg 10/09/24 21:00 10/15/24 21:07 Atorvastatin 40 Mg Tablet PO 40 mg QHS RYAN Administration Benzocaine 1 lozenge 10/09/24 14:33 Benzocaine/Menthol (*Bkc) 18 Ea Lozenge PO PRN PRN Sore Throat Benzonatate 100 mg 10/09/24 14:33 Benzonatate 100 Mg Capsule PO TID PRN Cough Dextrose 12.5 gm 10/09/24 13:29 Dextrose 50% 25 Gm/50 Ml Syringe IV PUSH PRN PRN Hypoglycemia Protocol Docusate Sodium 100 mg 10/10/24 09:00 10/16/24 08:19 Docusate Sodium 100 Mg Capsule PO 100 mg DAILY RYAN Administration Fentanyl Citrate 25 mcg 10/09/24 15:44 Fentanyl Citrate Inj (*Crx) 100 Mcg/2 Ml Vial IV PUSH Q4H PRN Pain Rated 6 or Greater Ferrous Sulfate 325 mg 10/10/24 09:00 10/16/24 08:19 Ferrous Sulfate [address] PO 11/09/24 08:59 325 mg DAILY RYAN Administration Fluoxetine HCl 40 mg 10/10/24 09:00 10/16/24 08:19 Fluoxetine Hcl 20 Mg Capsule PO 40 mg DAILY RYAN Administration Glucagon 1 mg 10/09/24 13:29 Glucagon For Inj 1 Mg Vial IM PRN PRN Hypoglycemia Protocol Glucose 15 gm 10/09/24 13:29 10/13/24 08:12 Glucose Oral Gel 15 Gm Of Glucse In 37.5 Gm Tube PO 15 gm PRN PRN Administration Hypoglycemia Protocol Guaifenesin 600 mg 10/09/24 15:00 10/16/24 08:19 Guaifenesin 12 Hr 600 Mg Tabcr PO 600 mg Q12HR RYAN Administration Heparin Sodium (Porcine) 5,000 units 10/10/24 22:00 10/16/24 05:38 Heparin Sodium 5,000 Units/Ml Vial SUB-Q 5,000 units Q8HR RYNA Administration Dextrose 1,000 mls @ 100 mls/hr 10/09/24 13:29 Dextrose 5% 1,000 Ml IVPB PRN PRN Hypoglycemia Protocol Ceftriaxone Sodium 2 gm in 100 mls @ 200 mls/hr 10/11/24 09:00 10/16/24 08:20 Rocephin 2 Gm/Ns 100 Ml IVPB 200 mls/hr DAILY RYAN Administration Insulin Aspart 3 units 10/09/24 17:00 10/12/24 18:15 Insulin Aspart (*Bkc) 100 Units/Ml SUB-Q 11/08/24 16:59 Not Given TIDWM RYAN Insulin Aspart 2 - 5 units 10/13/24 08:00 10/16/24 08:06 Insulin Aspart (*Bkc) 100 Units/Ml SUB-Q Not Given TIDWM [facility] Protocol Insulin Glargine 10 units 10/13/24 21:00 Insulin Glargine (*Bkc) 100 Units/Ml SUB-Q QHS [facility] Metronidazole 500 mg 10/15/24 12:00 10/16/24 05:38 Metronidazole 500 Mg Tablet PO 500 mg Q8HR RYAN Administration Multivitamins/Calcium 1 tablet 10/10/24 09:00 10/16/24 08:19 Therapeutic Multivitamins/Minerals Tab (*Bkc) PO 1 tablet DAILY RYAN Administration Ondansetron HCl 4 mg 10/09/24 09:54 10/16/24 09:09 Ondansetron Inj 4 Mg/2 Ml Vial IV PUSH 4 mg Q4H PRN Administration Nausea Pantoprazole Sodium 40 mg 10/09/24 21:00 10/16/24 08:19 Pantoprazole 40 Mg Tablet PO 40 mg Q12HR RYAN Administration Vitamin D 1,000 units 10/10/24 09:00 10/16/24 08:19 Cholecalciferol 1,000 Units Tablet PO 1,000 units DAILY RYAN Administration Radiology Results: ITS Impressions Chest X-Ray 10/09/24 09:14 IMPRESSION: 1. Small left pleural effusion with mild left basilar opacities which could represent associated atelectasis or pneumonia. Renal Ultrasound 10/09/24 14:29 IMPRESSION: 1. Mild left hydronephrosis. Abdomen/Pelvis CT 10/14/24 16:15 IMPRESSION: Extraluminal air is identified within the deep pelvis, an interval change from previous examination. Free fluid is now identified within the pelvis surrounding this area of extraluminal air, for which a contained perforation is suspected. 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 These findings were discussed with Dr. Brown at 4:55 PM on 10/14/2024 CT cystogram may elucidate these findings clearer, if the patient is clinically able. Labs Labs: Laboratory Results - last 24 hr 10/15/24 10/15/24 10/15/24 11:41 14:47 16:35 POC Capillary Glucose 139 H 155 H C. difficile (PCR) Cancelled 10/15/24 10/16/24 19:48 08:02 POC Capillary Glucose 204 H 128 H C. difficile (PCR)
[2024-10-16 12:53] LABS: Glucose Point of Care 186 mg/dl (65-105)
[2024-10-16 13:55] VITALS: BP 136/52; PULSE 75; RESP 16; TEMP 36.6; O2SAT 98
[2024-10-16 16:55] LABS: Glucose Point of Care 140 mg/dl (65-105)
--- NOTE | 2024-10-16 17:37 | P.PN_ITS ---
Progress Note: A&P Assessment and Plan (1) Sepsis: Qualifiers: Sepsis acute organ dysfunction status: unspecified Sepsis type: sepsis due to unspecified organism Qualified Code(s): A41.9 - Sepsis, unspecified o rganism Code(s): A41.9 - Sepsis, unspecified organism Status: Acute Assessment and Plan: resolving WBC 12 from 37.2 on admission, HR wnl, and continue IVF and monitor lactic acid - suspected source: pneumonia and UTI on ceftriaxone and azithromycin on 10/09 blood culture positive for E coli concludes azithromycin Mild leukocytosis still persist (2) Acute UTI: Code(s): N39.0 - Urinary tract infection, site not specified Status: Acute Assessment and Plan: f/u urine culture which is Gram-negative bacilli likely E coli Continue Rocephin and IVF ivf stopped (3) Pneumonia: Qualifiers: Pneumonia type: due to unspecified organism Laterality: left Lung location: lower lobe of lung Qualified Code(s): J18.9 - Pneumonia, unspecified organism Code(s): J18.9 - Pneumonia, unspecified organism Status: Suspected Assessment and Plan: - CXR: small left pleural effusion with mild left basilar opacities which could represent associated atelectasis or pneumonia. MRSA negative Continue Rocephin and Azithromycin finished azithromycin (4) JEFFERY (acute kidney injury): Code(s): N17.9 - Acute kidney failure, unspecified Status: Acute Assessment and Plan: - creatinine 3.5 and GFR 13, previously 1.1 and GFR 48 on admission - renal ultrasound: mild left hydronephrosis monitor Is and Os Creatinine continues to improve continue IVF Urology consulted for left hydronephrosis Clements catheter placed expected to improve with this Repeat CT with possible enterovesical fistula (5) Type 2 diabetes mellitus with hyperglycemia, with long-term current use of insulin: Code(s): E11.65 - Type 2 diabetes mellitus with hyperglycemia; Z79.4 - rn long term care (current) use of insulin Status: Chronic Assessment and Plan: - hypoglycemia protocol - POC blood glucose ACHS - home medication: continue Lantus 15 units HS and Lispro 3 units TIDWM - correct regimen ordered - moderate dose TIDWM, based off BMI - A1C 7.1% on 09/05/2024 hypoglycemic this am. 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 General surgery consulted as well as we consulted Urology Urology planning for cystoscopy Added Flagyl for anaerobic coverage ntermittent abdominal discomfort reported. to further evaluate patient had CT scan of the abdomen which showed patient has enterovesicular fistula, currently on ceftriaxone, and added Flagyl for anaerobic coverage Tolerating diet. Urology planning for cystoscopy, will follow up and plan. Plan Thrombocytopenia: Likely due to sepsis. Will continue to monitor heparin on hold. thrombocytopenia improving E coli bacteremia Likely from UTI continue Monitoring blood cultures. Sensitive to ceftriaxone. repeat blood culture continue abx above Diet: Diabetic GI Prophylaxis: Continue home pantoprazole DVT Prophylaxis: Sq heparin on hold due to thrombocytopenia, resumed now. Lines: Peripheral Code Status: Full code Subjective Date/time seen: 10/16/24 17:37 Interval history: Intermittent abdominal discomfort reported. to further evaluate patient had CT scan of the abdomen which showed patient has enterovesicular fistula, currently on ceftriaxone, and added Flagyl for anaerobic coverage Tolerating diet. Urology planning for cystoscopy, will follow up and plan. Review of Systems Review of Systems: All systems reviewed & are unremarkable except as noted in HPI and below Exam Narrative: Patient is comfortable, NAD HEENT: eyes are clear and none icteric LUNGS:CTA HEART: RR S1S2 ABD: BS+, diffusely tender Lower extremities: no edema SKIN: nonjaundiced Neuro: grossly intact. Objective Data Vital Signs Vital Signs: Vital Signs - 24 hr 10/15/24 21:03 10/15/24 20:00 10/16/24 06:00 Temperature 37.2 C 36.8 C Pulse Rate 80 72 Respiratory Rate 14 16 Blood Pressure 144/60 H 148/65 H Pulse Oximetry 100 100 97 Oxygen Delivery Room Air 10/16/24 08:00 10/16/24 13:55 Temperature 36.6 C Pulse Rate 75 Respiratory Rate 16 Blood Pressure 136/52 L Pulse Oximetry 98 Oxygen Delivery Room Air Intake/Output Intake/Output: Intake & Output 10/13/24 10/14/24 10/15/24 10/16/24 23:59 23:59 23:59 23:59 Intake Total 2203.7 2150 1180 1600 Output Total 1250 1950 2600 2050 Balance 953.7 200 -1420 -450 Meds/Results Medications: Active Medications Generic Name Dose Route Start Last Admin Trade Name Freq PRN Reason Stop Dose Admin Acetaminophen 650 mg 10/09/24 15:44 10/13/24 12:32 Acetaminophen 325 Mg Tablet PO 650 mg Q6H PRN Administration Pain Rated 5 or Less, Fever Albuterol/Ipratropium 3 ml 10/09/24 14:33 Ipratropium 0.5 Mg/Albuterol Sulfate 2.5 Mg Ampul.Neb 3 Ml NEBULIZE Q6HRT PRN Shortness Of Breath Or Wheezing Ascorbic Acid 1,000 mg 10/10/24 09:00 10/16/24 08:19 Ascorbic Acid 500 Mg Tablet PO 1,000 mg DAILY RYAN Administration Aspirin 81 mg 10/10/24 09:00 10/16/24 08:19 Aspirin 81 Mg Enteric Tablet PO 11/09/24 08:59 81 mg DAILY RYAN Administration Atorvastatin Calcium 40 mg 10/09/24 21:00 10/15/24 21:07 Atorvastatin 40 Mg Tablet PO 40 mg QHS RYAN Administration Benzocaine 1 lozenge 10/09/24 14:33 Benzocaine/Menthol (*Bkc) 18 Ea Lozenge PO PRN PRN Sore Throat Benzonatate 100 mg 10/09/24 14:33 Benzonatate 100 Mg Capsule PO TID PRN Cough Dextrose 12.5 gm 10/09/24 13:29 Dextrose 50% 25 Gm/50 Ml Syringe IV PUSH PRN PRN Hypoglycemia Protocol Docusate Sodium 100 mg 10/10/24 09:00 10/16/24 08:19 Docusate Sodium 100 Mg Capsule PO 100 mg DAILY RYAN Administration Fentanyl Citrate 25 mcg 10/09/24 15:44 Fentanyl Citrate Inj (*Crx) 100 Mcg/2 Ml Vial IV PUSH Q4H PRN Pain Rated 6 or Greater Ferrous Sulfate 325 mg 10/10/24 09:00 10/16/24 08:19 Ferrous Sulfate [address] PO 11/09/24 08:59 325 mg DAILY RYAN Administration Fluoxetine HCl 40 mg 10/10/24 09:00 10/16/24 08:19 Fluoxetine Hcl 20 Mg Capsule PO 40 mg DAILY RYAN Administration Glucagon 1 mg 10/09/24 13:29 Glucagon For Inj 1 Mg Vial IM PRN PRN Hypoglycemia Protocol Glucose 15 gm 10/09/24 13:29 10/13/24 08:12 Glucose Oral Gel 15 Gm Of Glucse In 37.5 Gm Tube PO 15 gm PRN PRN Administration Hypoglycemia Protocol Guaifenesin 600 mg 10/09/24 15:00 10/16/24 08:19 Guaifenesin 12 Hr 600 Mg Tabcr PO 600 mg Q12HR RYAN Administration Heparin Sodium (Porcine) 5,000 units 10/10/24 22:00 10/16/24 13:42 Heparin Sodium 5,000 Units/Ml Vial SUB-Q 5,000 units Q8HR RYAN Administration Dextrose 1,000 mls @ 100 mls/hr 10/09/24 13:29 Dextrose 5% 1,000 Ml IVPB PRN PRN Hypoglycemia Protocol Ceftriaxone Sodium 2 gm in 100 mls @ 200 mls/hr 10/11/24 09:00 10/16/24 08:20 Rocephin 2 Gm/Ns 100 Ml IVPB 200 mls/hr DAILY RYAN Administration Insulin Aspart 3 units 10/09/24 17:00 10/12/24 18:15 Insulin Aspart (*Bkc) 100 Units/Ml SUB-Q 11/08/24 16:59 Not Given TIDWM [facility] Insulin Aspart 2 - 5 units 10/13/24 08:00 10/16/24 16:57 Insulin Aspart (*Bkc) 100 Units/Ml SUB-Q Not Given TIDWM [facility] Protocol Insulin Glargine 10 units 10/13/24 21:00 Insulin Glargine (*Bkc) 100 Units/Ml SUB-Q QHS [facility] Metronidazole 500 mg 10/15/24 12:00 10/16/24 13:42 Metronidazole 500 Mg Tablet PO 500 mg Q8HR RYAN Administration Multivitamins/Calcium 1 tablet 10/10/24 09:00 10/16/24 08:19 Therapeutic Multivitamins/Minerals Tab (*Bkc) PO 1 tablet DAILY RYAN Administration Ondansetron HCl 4 mg 10/09/24 09:54 10/16/24 09:09 Ondansetron Inj 4 Mg/2 Ml Vial IV PUSH 4 mg Q4H PRN Administration Nausea Pantoprazole Sodium 40 mg 10/09/24 21:00 10/16/24 08:19 Pantoprazole 40 Mg Tablet PO 40 mg Q12HR RYAN Administration Vitamin D 1,000 units 10/10/24 09:00 10/16/24 08:19 Cholecalciferol 1,000 Units Tablet PO 1,000 units DAILY RYAN Administration Radiology Results: ITS Impressions Chest X-Ray 10/09/24 09:14 IMPRESSION: 1. Small left pleural effusion with mild left basilar opacities which could represent associated atelectasis or pneumonia. Renal Ultrasound 10/09/24 14:29 IMPRESSION: 1. Mild left hydronephrosis. Abdomen/Pelvis CT 10/14/24 16:15 IMPRESSION: Extraluminal air is identified within the deep pelvis, an interval change from previous examination. Free fluid is now identified within the pelvis surrounding this area of extraluminal air, for which a contained perforation is suspected. 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 These findings were discussed with Dr. Brown at 4:55 PM on 10/14/2024 CT cystogram may elucidate these findings clearer, if the patient is clinically able. Labs Labs: Laboratory Results - last 24 hr 10/15/24 10/16/24 10/16/24 19:48 08:02 12:48 POC Capillary Glucose 204 H 128 H 186 H 10/16/24 16:52 POC Capillary Glucose 140 H Quality VTE Prophylaxis VTE prophylaxis: mechanical ordered
[2024-10-16 20:49] LABS: Glucose Point of Care 190 mg/dl (65-105)
[2024-10-16] MEDS: ATORVASTATIN 40 MG TABLET PO (20:55)
[2024-10-16 22:00] VITALS: BP 176/63; PULSE 84; RESP 18; TEMP 37.4; O2SAT 100
[2024-10-17] VITALS (10 sets, daily range): BP systolic 89–163; BP diastolic 42–68; PULSE 58–77; RESP 14–22; TEMP 36.4–37.1; O2SAT 97–100
--- NOTE | 2024-10-17 06:38 | WPDHPUPDATE1 ---
History and Physical Update Update Date/Time: 10/17/24 06:38 History and Physical has been reviewed, including an updated exam of the patient. There are NO changes in the patient's condition. Risks, benefits, and alternatives have been discussed and questions answered. Patient agrees to proceed with procedure.
[2024-10-17 08:05] LABS: Glucose Point of Care 121 mg/dl (65-105)
[2024-10-17] MEDS: PANTOPRAZOLE 40 MG TABLET PO ×2 (08:41→20:33)
[2024-10-17] MEDS: FERROUS SULFATE 325 MG TABLET DR PO (08:41)
[2024-10-17] MEDS: ACETAMINOPHEN 325 MG TABLET 650 MG PO (08:41)
[2024-10-17] MEDS: cefTRIAXone 2 GM/NS 100 ML 2 GM/100 ML BAG IVPB (08:42)
[2024-10-17] MEDS: FLUoxetine HCL 20 MG CAPSULE 40 MG PO (08:42)
[2024-10-17 11:55] LABS: Glucose Point of Care 128 mg/dl (65-105)
--- NOTE | 2024-10-17 12:44 | P.PNAN_ITS ---
Anes - Initial Pre Proc Eval Procedure: Operation Date: 10/17/24 14:00 Proposed Procedures p Cystoscopy, Bilateral Retrograde Pyelogram - Lenny Meehan MD Date/Time: 10/17/24 12:44 Surgeon: Stephanie Levi MD Pre Op Diagnosis: Sepsis, JEFFERY, UTI, pneumonia Patient Data Age: 79 Gender: F Height: 1.55 m Weight: 75.1 kg Last Vital Signs Temp 98.8 F 10/17/24 06:00 Pulse 77 10/17/24 06:00 Resp 18 10/17/24 06:00 BP 156/68 H 10/17/24 06:00 Pulse Ox 98 10/17/24 06:00 O2 Del Method Room Air 10/17/24 08:00 Allergies Allergy/AdvReac Type Severity Reaction Status Date / Time morphine AdvReac Unknown Nausea and Verified 07/23/24 14:51 Vomiting Home Medications Medication Instructions Recorded Confirmed Type ferrous sulfate 325 mg (65 mg 325 mg PO DAILY 10/11/19 10/09/24 History iron) tablet [id number] 8 mg-folic 400 1 tablet PO DAILY 11/25/21 10/09/24 History mcg-K 50 mcg-lutein 300 mcg tablet (Centrum Silver Women) aspirin 81 mg tablet 81 mg PO DAILY 12/16/21 10/09/24 History cholecalciferol (vitamin D3) 125 125 mcg PO DAILY 04/03/24 10/09/24 History mcg (5,000 unit) capsule ascorbic acid (vitamin C) 500 mg 1,000 mg PO DAILY 30 days #60 tabs 04/14/24 10/09/24 Rx tablet (Vitamin C) docusate sodium 100 mg capsule 100 mg PO DAILY 30 days #30 caps 04/14/24 10/09/24 Rx pantoprazole 40 mg tablet,delayed 40 mg PO Q12H 30 days #60 tabs 04/14/24 10/09/24 Rx release fluoxetine 40 mg capsule 40 mg PO DAILY 07/23/24 10/09/24 History atorvastatin 40 mg tablet 40 mg PO QHS #90 tabs 08/20/24 10/09/24 Rx pen needle, diabetic 32 gauge x #100 ea 09/03/24 10/09/24 Rx 1/4 (BD Ultra-Fine Micro Pen Needle) amlodipine 5 mg tablet 5 mg PO DAILY #30 tabs 10/14/24 Rx amoxicillin 500 mg-potassium 1 tablet PO Q8H #15 tabs 10/14/24 Rx clavulanate 125 mg tablet guaifenesin 600 mg tablet, 600 mg PO Q12HR #30 tabs 10/14/24 Rx extended release 12 hr (Mucus Relief ER) insulin aspart U-100 100 unit/mL 2 - 5 unit subcut TIDWM #10 mL 10/14/24 Rx subcutaneous solution (Novolog U-100 Insulin aspart) Laboratory Tests 10/16/24 10/16/24 10/16/24 12:48 16:52 20:47 POC Capillary Glucose 186 H mg/dl 140 H mg/dl 190 H mg/dl (65-105) (65-105) (65-105) 10/17/24 10/17/24 08:01 11:51 POC Capillary Glucose 121 H mg/dl 128 H mg/dl (65-105) (65-105) Patient hx anesthesia problems: none Family hx anesthesia problems: none Results Review: All pre-operative results and documents have been reviewed as part of the pre- operative evaluation. [facility] Past Medical History Medical History Anxiety and depression Arthritis Debility Diabetic neuropathy associated with diabetes mellitus due to underlying condition with A1C 7.5% 04/03/2024 Diabetic peripheral neuropathy Endometrial cancer (2009) s/p hysterectomy and radiation Essential (primary) hypertension Family history of colon cancer in father Foot drop, left Gastric ulcer Helicobacter pylori gastritis History of stroke with residual deficit (~01/2018) left sided weakness Hyperlipidemia, unspecified Ileus, postoperative Major depressive disorder, single episode, unspecified NSAID long-term use Renal and ureteric calculus (06/2021) Type 2 diabetes, uncontrolled, with neuropathy With A1c 04/03/2024 7.5% Vertigo Vitamin D deficiency Surgical History Surgical History History of cholecystectomy History of hysterectomy History of total right knee replacement (2009) Family History Family History Father Family history of malignant neoplasm Hypertension Carcinoma of colon Family history of diabetes mellitus in first degree relative Mother Hypertension Cerebrovascular accident Sibling Hypertension Diabetes mellitus Cerebrovascular accident Other Family history of cardiovascular disease Social History Social History Social History: The patient lives at home with a nephew and his girlfriend. She is a lifelong nonsmoker and does not drink alcohol or use illicit substances. She had 1 son who an accidental . Code status: Full code Surrogate decision maker: Katie Rodriguez (sister) Smoking status: Never smoker Alcohol intake: never Substance use: never Substance use type: does not use Do You Feel Safe in your Home?: Yes Lack of Transportation: No Lack of Food: Never True Current Housing: I Have Housing Concerned About Future Housing: No Difficulty Paying Gas/Electric Bills: No Difficulty Paying for Meds: No Currently Unemployed: No Education: High School Diploma/GED Difficulty w/ Childcare or Family Care: No Living arrangements: with family Gender identity (if verbalized by the patient): Female Sexual Orientation (if Verbalized by the Patient): Straight or Heterosexual Spiritual care concerns: No Anes - Eval Final PreProcedure Day of Procedure 10/17/24 12:44 Patient weight: obese Heart: regular rate and rhythm Lungs: clear to auscultation Airway: Mallampati scale class II Neurological: alert and oriented Last oral intake: >/= 8 hours ASA classification: IV Emergent: no Anesthetic plan: proceed Anesthesia type and monitoring: general GIVS and standard monitoring Results Review: All pre-operative results and documents have been reviewed as part of the pre-operative evaluation. HTN, hyperlipidemia, DM, hx CVA. Informed Consent: The patient's anesthetic plan and its attendant risks and benefits were discussed with the patient/family/POA. Questions were solicited and answers provided to the satisfaction of the patient/family/POA.
[2024-10-17] MEDS: LACTATED RINGERS 1,000 ML 30 ML IV CONT (12:45)
--- NOTE | 2024-10-17 13:47 | W.PM.PROC2 ---
Procedure Note - Detailed Date of Procedure 10/17/24 Pre-op Diagnosis Sepsis, JEFFERY, UTI, pneumonia Post-op Diagnosis Same Procedure Performed Cystoscopy, bilateral retrograde pyelography Surgeon Lenny Meehan MD Anesthesia General Description of Procedure Patient is brought to the operative suite where she is prepped draped in routine sterile fashion while in dorsal lithotomy position after the uneventful induction of a general LMA anesthetic. Cystoscopy was undertaken with a 19 F rigid cystoscope. Her bladder neck and urethra endoscopically normal. Bladder mucosa shows some very mild patchy hyperemia consistent with recent bacterial cystitis. There are no sites of intense hyperemia or other findings to suggest enterovesical fistula. She has a single orthotopic ureteral orifice bilaterally. Eight F bulb-tipped catheter used to obtain bilateral retrograde pyelograms which showed no evidence of obstruction filling defect or other upper tract pathology. This point the cystoscope was removed and I 18 F Clements catheter was placed to drainage. The patient tolerated the procedure well was taken recovery room in good condition. Urine Output 800
[2024-10-17 14:01] LABS: Glucose Point of Care 115 mg/dl (65-105)
--- NOTE | 2024-10-17 14:29 | P.PNGS_ITS ---
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 Status: Acute Assessment and Plan: exam improving, await cytoscopy today, will need CT cystogram (2) Acute UTI: Code(s): N39.0 - Urinary tract infection, site not specified Status: Acute Assessment and Plan: cont abx Subjective Subjective Date/Time Seen: 10/17/24 14:29 Interval history: no acute issues, still c some mild lower abd pain Review of Systems Review of Systems: All systems reviewed & are unremarkable except as noted in HPI and below Exam Const: General: cooperative, comfortable, no acute distress and ill appearing Resp: Auscultation: clear to auscultation bilaterally Cardio: Rate: regular rate Rhythm: regular rhythm GI: Inspection: normal to inspection and non-distended GI Palp: Yes abdominal tenderness and Yes Soft to palpation Objective Data Vital Signs Vital Signs: Vital Signs - 24 hr 10/16/24 20:00 10/16/24 22:00 10/17/24 06:00 Temperature 37.4 C 37.1 C Pulse Rate 84 77 Respiratory Rate 18 18 Blood Pressure 176/63 H 156/68 H Pulse Oximetry 100 98 Oxygen Delivery Room Air Oxygen Flow Rate 10/17/24 08:00 10/17/24 12:45 10/17/24 13:47 Temperature 36.8 C 36.6 C Pulse Rate 67 58 L Respiratory Rate 18 15 Blood Pressure 140/58 L 89/42 L Pulse Oximetry 98 97 Oxygen Delivery Room Air Room Air Simple Face Mask Oxygen Flow Rate 8 10/17/24 14:00 10/17/24 14:15 Temperature Pulse Rate 61 61 Respiratory Rate 22 H 16 Blood Pressure 127/60 133/54 L Pulse Oximetry 97 97 Oxygen Delivery Room Air Room Air Oxygen Flow Rate Intake/Output Intake/Output: Intake & Output 10/14/24 10/15/24 10/16/24 10/17/24 23:59 23:59 23:59 23:59 Intake Total 2150 1180 2180 31 Output Total 1950 2600 2050 2400 Balance 200 -1420 130 -2369 Meds/Results Medications: Active Medications Generic Name Dose Route Start Last Admin Trade Name Freq PRN Reason Stop Dose Admin Acetaminophen 650 mg 10/09/24 15:44 10/17/24 08:41 Acetaminophen 325 Mg Tablet PO 650 mg Q6H PRN Administration Pain Rated 5 or Less, Fever Albuterol/Ipratropium 3 ml 10/09/24 14:33 Ipratropium 0.5 Mg/Albuterol Sulfate 2.5 Mg Ampul.Neb 3 Ml NEBULIZE Q6HRT PRN Shortness Of Breath Or Wheezing Ascorbic Acid 1,000 mg 10/10/24 09:00 10/17/24 08:38 Ascorbic Acid 500 Mg Tablet PO Not Given DAILY [facility] Aspirin 81 mg 10/10/24 09:00 10/17/24 08:34 Aspirin 81 Mg Enteric Tablet PO 11/09/24 08:59 Not Given DAILY [facility] Atorvastatin Calcium 40 mg 10/09/24 21:00 10/16/24 20:55 Atorvastatin 40 Mg Tablet PO 40 mg QHS [facility] Administration Benzocaine 1 lozenge 10/09/24 14:33 Benzocaine/Menthol (*Bkc) 18 Ea Lozenge PO PRN PRN Sore Throat Benzonatate 100 mg 10/09/24 14:33 Benzonatate 100 Mg Capsule PO TID PRN Cough Dextrose 12.5 gm 10/09/24 13:29 Dextrose 50% 25 Gm/50 Ml Syringe IV PUSH PRN PRN Hypoglycemia Protocol Docusate Sodium 100 mg 10/10/24 09:00 10/17/24 08:34 Docusate Sodium 100 Mg Capsule PO Not Given DAILY [facility] Fentanyl Citrate 25 mcg 10/09/24 15:44 Fentanyl Citrate Inj (*Crx) 100 Mcg/2 Ml Vial IV PUSH Q4H PRN Pain Rated 6 or Greater Fentanyl Citrate 25 mcg 10/17/24 14:04 Fentanyl Citrate Inj (*Crx) 100 Mcg/2 Ml Vial IV PUSH Q2M PRN Pain Ferrous Sulfate 325 mg 10/10/24 09:00 10/17/24 08:41 Ferrous Sulfate [address] PO 11/09/24 08:59 325 mg DAILY RYAN Administration Fluoxetine HCl 40 mg 10/10/24 09:00 10/17/24 08:42 Fluoxetine Hcl 20 Mg Capsule PO 40 mg DAILY RYAN Administration Glucagon 1 mg 10/09/24 13:29 Glucagon For Inj 1 Mg Vial IM PRN PRN Hypoglycemia Protocol Glucose 15 gm 10/09/24 13:29 10/13/24 08:12 Glucose Oral Gel 15 Gm Of Glucse In 37.5 Gm Tube PO 15 gm PRN PRN Administration Hypoglycemia Protocol Guaifenesin 600 mg 10/09/24 15:00 10/17/24 08:42 Guaifenesin 12 Hr 600 Mg Tabcr PO Not Given Q12HR RYAN Heparin Sodium (Porcine) 5,000 units 10/10/24 22:00 10/17/24 05:14 Heparin Sodium 5,000 Units/Ml Vial SUB-Q Not Given Q8HR RYAN Dextrose 1,000 mls @ 100 mls/hr 10/09/24 13:29 Dextrose 5% 1,000 Ml IVPB PRN PRN Hypoglycemia Protocol Ceftriaxone Sodium 2 gm in 100 mls @ 200 mls/hr 10/11/24 09:00 10/17/24 08:42 Rocephin 2 Gm/Ns 100 Ml IVPB 200 mls/hr DAILY RYAN Administration Lactated Ringer's 1,000 mls @ 30 mls/hr 10/17/24 06:45 10/17/24 13:47 Lr - Lactated Ringers Iv IV CONT 30 mls/hr .Q24H RYAN Infusion Lactated Ringer's 1,000 mls @ 30 mls/hr 10/17/24 14:05 Lr - Lactated Ringers Iv IV CONT .Q24H RYAN Lactated Ringer's 1,000 mls @ 30 mls/hr 10/17/24 14:05 Lr - Lactated Ringers Iv IV CONT .Q24H RYAN Insulin Aspart 3 units 10/09/24 17:00 10/12/24 18:15 Insulin Aspart (*Bkc) 100 Units/Ml SUB-Q 11/08/24 16:59 Not Given TIDWM [facility] Insulin Aspart 2 - 5 units 10/13/24 08:00 10/17/24 12:01 Insulin Aspart (*Bkc) 100 Units/Ml SUB-Q Not Given TIDWM [facility] Protocol Insulin Glargine 10 units 10/13/24 21:00 Insulin Glargine (*Bkc) 100 Units/Ml SUB-Q QHS [facility] Metronidazole 500 mg 10/15/24 12:00 10/17/24 05:15 Metronidazole 500 Mg Tablet PO Not Given Q8HR RYAN Multivitamins/Calcium 1 tablet 10/10/24 09:00 10/17/24 08:34 Therapeutic Multivitamins/Minerals Tab (*Bkc) PO Not Given DAILY RYAN Ondansetron HCl 4 mg 10/09/24 09:54 10/16/24 20:53 Ondansetron Inj 4 Mg/2 Ml Vial IV PUSH 4 mg Q4H PRN Administration Nausea Ondansetron HCl 4 mg 10/17/24 14:04 Ondansetron Inj 4 Mg/2 Ml Vial IV PUSH ONCE PRN Nausea Pantoprazole Sodium 40 mg 10/09/24 21:00 10/17/24 08:41 Pantoprazole 40 Mg Tablet PO 40 mg Q12HR RYAN Administration Vitamin D 1,000 units 10/10/24 09:00 10/17/24 08:38 Cholecalciferol 1,000 Units Tablet PO Not Given DAILY [facility] Radiology Results: ITS Impressions Chest X-Ray 10/09/24 09:14 IMPRESSION: 1. Small left pleural effusion with mild left basilar opacities which could represent associated atelectasis or pneumonia. Renal Ultrasound 10/09/24 14:29 IMPRESSION: 1. Mild left hydronephrosis. Abdomen/Pelvis CT 10/14/24 16:15 IMPRESSION: Extraluminal air is identified within the deep pelvis, an interval change from previous examination. Free fluid is now identified within the pelvis surrounding this area of extraluminal air, for which a contained perforation is suspected. 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 These findings were discussed with Dr. Brown at 4:55 PM on 10/14/2024 CT cystogram may elucidate these findings clearer, if the patient is clinically able. Labs Labs: Laboratory Results - last 24 hr 10/16/24 10/16/24 10/17/24 16:52 20:47 08:01 POC Capillary Glucose 140 H 190 H 121 H 10/17/24 10/17/24 11:51 13:59 POC Capillary Glucose 128 H 115 H
[2024-10-17] MEDS: metroNIDAZOLE 500 MG TABLET PO ×2 (15:42→20:33)
[2024-10-17 17:07] LABS: Glucose Point of Care 141 mg/dl (65-105)
--- NOTE | 2024-10-17 17:41 | WPDPN ---
Progress Note: A&P Assessment and Plan (1) Sepsis: Qualifiers: Sepsis acute organ dysfunction status: unspecified Sepsis type: sepsis due to unspecified organism Qualified Code(s): A41.9 - Sepsis, unspecified organism Code(s): A41.9 - Sepsis, unspecified organism Status: Acute Assessment and Plan: resolving WBC 12 from 37.2 on admission, HR wnl, and continue IVF and monitor lactic acid - suspected source: pneumonia and UTI on ceftriaxone and azithromycin on 10/09 blood culture positive for E coli concludes azithromycin Mild leukocytosis still persist (2) Acute UTI: Code(s): N39.0 - Urinary tract infection, site not specified Status: Acute Assessment and Plan: f/u urine culture which is Gram-negative bacilli likely E coli Continue Rocephin and IVF ivf stopped (3) Pneumonia: Qualifiers: Pneumonia type: due to unspecified organism Laterality: left Lung location: lower lobe of lung Qualified Code(s): J18.9 - Pneumonia, unspecified organism Code(s): J18.9 - Pneumonia, unspecified organism Status: Suspected Assessment and Plan: - CXR: small left pleural effusion with mild left basilar opacities which could represent associated atelectasis or pneumonia. MRSA negative Continue Rocephin and Azithromycin finished azithromycin (4) JEFFERY (acute kidney injury): Code(s): N17.9 - Acute kidney failure, unspecified Status: Acute Assessment and Plan: - creatinine 3.5 and GFR 13, previously 1.1 and GFR 48 on admission - renal ultrasound: mild left hydronephrosis monitor Is and Os Creatinine continues to improve continue IVF Urology consulted for left hydronephrosis Clements catheter placed expected to improve with this Repeat CT with possible enterovesical fistula (5) Type 2 diabetes mellitus with hyperglycemia, with long-term current use of insulin: Code(s): E11.65 - Type 2 diabetes mellitus with hyperglycemia; Z79.4 - alf (current) use of insulin Status: Chronic Assessment and Plan: - hypoglycemia protocol - POC blood glucose ACHS - home medication: continue Lantus 15 units HS and Lispro 3 units TIDWM - correct regimen ordered - moderate dose TIDWM, based off BMI - A1C 7.1% on 09/05/2024 hypoglycemic this am. 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 General surgery consulted as well as we consulted Urology Urology planning for cystoscopy Added Flagyl for anaerobic coverage Intermittent abdominal discomfort reported. to further evaluate patient had CT scan of the abdomen which showed patient has enterovesicular fistula, currently on ceftriaxone, and added Flagyl for anaerobic coverage Tolerating diet. today patient had a cystoscopy it was normal without any obstruction, patient stats feeling better, will monitor Plan Thrombocytopenia: Likely due to sepsis. Will continue to monitor heparin on hold. thrombocytopenia improving E coli bacteremia Likely from UTI continue Monitoring blood cultures. Sensitive to ceftriaxone. repeat blood culture continue abx above Diet: Diabetic GI Prophylaxis: Continue home pantoprazole DVT Prophylaxis: Sq heparin on hold due to thrombocytopenia, resumed now. Lines: Peripheral Code Status: Full code Subjective Date/time seen: 10/17/24 17:41 Interval history: Intermittent abdominal discomfort reported. to further evaluate patient had CT scan of the abdomen which showed patient has enterovesicular fistula, currently on ceftriaxone, and added Flagyl for anaerobic coverage Tolerating diet. today patient had a cystoscopy it was normal without any obstruction, patient stats feeling better, will monitor Review of Systems Review of Systems: All systems reviewed & are unremarkable except as noted in HPI and below Exam Narrative: Patient is comfortable, NAD HEENT: eyes are clear and none icteric LUNGS:CTA HEART: RR S1S2 ABD: BS+, diffusely tender Lower extremities: no edema SKIN: nonjaundiced Neuro: grossly intact. Objective Data Vital Signs Vital Signs: Vital Signs - 24 hr 10/16/24 20:00 10/16/24 22:00 10/17/24 06:00 Temperature 37.4 C 37.1 C Pulse Rate 84 77 Respiratory Rate 18 18 Blood Pressure 176/63 H 156/68 H Pulse Oximetry 100 98 Oxygen Delivery Room Air Oxygen Flow Rate 10/17/24 08:00 10/17/24 12:45 10/17/24 13:47 Temperature 36.8 C 36.6 C Pulse Rate 67 58 L Respiratory Rate 18 15 Blood Pressure 140/58 L 89/42 L Pulse Oximetry 98 97 Oxygen Delivery Room Air Room Air Simple Face Mask Oxygen Flow Rate 8 10/17/24 14:00 10/17/24 14:15 10/17/24 14:30 Temperature Pulse Rate 61 61 62 Respiratory Rate 22 H 16 16 Blood Pressure 127/60 133/54 L 133/53 L Pulse Oximetry 97 97 97 Oxygen Delivery Room Air Room Air Room Air Oxygen Flow Rate Intake/Output Intake/Output: Intake & Output 10/14/24 10/15/24 10/16/24 10/17/24 23:59 23:59 23:59 23:59 Intake Total 2150 1180 2180 300 Output Total 1950 2600 2050 2435 Balance 200 -1420 130 -2135 Meds/Results Medications: Active Medications Generic Name Dose Route Start Last Admin Trade Name Freq PRN Reason Stop Dose Admin Acetaminophen 650 mg 10/09/24 15:44 10/17/24 08:41 Acetaminophen 325 Mg Tablet PO 650 mg Q6H PRN Administration Pain Rated 5 or Less, Fever Albuterol/Ipratropium 3 ml 10/09/24 14:33 Ipratropium 0.5 Mg/Albuterol Sulfate 2.5 Mg Ampul.Neb 3 Ml NEBULIZE Q6HRT PRN Shortness Of Breath Or Wheezing Ascorbic Acid 1,000 mg 10/10/24 09:00 10/17/24 08:38 Ascorbic Acid 500 Mg Tablet PO Not Given DAILY [facility] Aspirin 81 mg 10/10/24 09:00 10/17/24 08:34 Aspirin 81 Mg Enteric Tablet PO 11/09/24 08:59 Not Given DAILY [facility] Atorvastatin Calcium 40 mg 10/09/24 21:00 10/16/24 20:55 Atorvastatin 40 Mg Tablet PO 40 mg QHS [facility] [place] Administration Benzocaine 1 lozenge 10/09/24 14:33 Benzocaine/Menthol (*Bkc) 18 Ea Lozenge PO PRN PRN Sore Throat Benzonatate 100 mg 10/09/24 14:33 Benzonatate 100 Mg Capsule PO TID PRN Cough Dextrose 12.5 gm 10/09/24 13:29 Dextrose 50% 25 Gm/50 Ml Syringe IV PUSH PRN PRN Hypoglycemia Protocol Docusate Sodium 100 mg 10/10/24 09:00 10/17/24 08:34 Docusate Sodium 100 Mg Capsule PO Not Given DAILY [facility] Fentanyl Citrate 25 mcg 10/09/24 15:44 Fentanyl Citrate Inj (*Crx) 100 Mcg/2 Ml Vial IV PUSH Q4H PRN Pain Rated 6 or Greater Ferrous Sulfate 325 mg 10/10/24 09:00 10/17/24 08:41 Ferrous Sulfate [address] PO 11/09/24 08:59 325 mg DAILY [facility] Administration Fluoxetine HCl 40 mg 10/10/24 09:00 10/17/24 08:42 Fluoxetine Hcl 20 Mg Capsule PO 40 mg DAILY [facility] Administration Glucagon 1 mg 10/09/24 13:29 Glucagon For Inj 1 Mg Vial IM PRN PRN Hypoglycemia Protocol Glucose 15 gm 10/09/24 13:29 10/13/24 08:12 Glucose Oral Gel 15 Gm Of Glucse In 37.5 Gm Tube PO 15 gm PRN PRN Administration Hypoglycemia Protocol Guaifenesin 600 mg 10/09/24 15:00 10/17/24 08:42 Guaifenesin 12 Hr 600 Mg Tabcr PO Not Given Q12HR [facility] Heparin Sodium (Porcine) 5,000 units 10/10/24 22:00 10/17/24 14:57 Heparin Sodium 5,000 Units/Ml Vial SUB-Q Not Given Q8HR [facility] Dextrose 1,000 mls @ 100 mls/hr 10/09/24 13:29 Dextrose 5% 1,000 Ml IVPB PRN PRN Hypoglycemia Protocol Ceftriaxone Sodium 2 gm in 100 mls @ 200 mls/hr 10/11/24 09:00 10/17/24 08:42 Rocephin 2 Gm/Ns 100 Ml IVPB 200 mls/hr DAILY [facility] Administration Lactated Ringer's 1,000 mls @ 30 mls/hr 10/17/24 06:45 10/17/24 14:33 Lr - Lactated Ringers Iv IV CONT Infused .Q24H [facility] Infusion Insulin Aspart 3 units 10/09/24 17:00 10/17/24 17:10 Insulin Aspart (*Bkc) 100 Units/Ml SUB-Q 11/08/24 16:59 Not Given TIDWM [facility] Insulin Aspart 2 - 5 units 10/13/24 08:00 10/17/24 17:10 Insulin Aspart (*Bkc) 100 Units/Ml SUB-Q Not Given TIDWM [facility] Protocol Insulin Glargine 10 units 10/13/24 21:00 Insulin Glargine (*Bkc) 100 Units/Ml SUB-Q QHS [facility] [place] Metronidazole 500 mg 10/15/24 12:00 10/17/24 15:42 Metronidazole 500 Mg Tablet PO 500 mg Q8HR [facility] Administration Multivitamins/Calcium 1 tablet 10/10/24 09:00 10/17/24 08:34 Therapeutic Multivitamins/Minerals Tab (*Bkc) PO Not Given DAILY [facility] [place] Ondansetron HCl 4 mg 10/09/24 09:54 10/16/24 20:53 Ondansetron Inj 4 Mg/2 Ml Vial IV PUSH 4 mg Q4H PRN Administration Nausea Pantoprazole Sodium 40 mg 10/09/24 21:00 10/17/24 08:41 Pantoprazole 40 Mg Tablet PO 40 mg Q12HR [facility] [place] Administration Vitamin D 1,000 units 10/10/24 09:00 10/17/24 08:38 Cholecalciferol 1,000 Units Tablet PO Not Given DAILY [facility] Radiology Results: ITS Impressions Chest X-Ray 10/09/24 09:14 IMPRESSION: 1. Small left pleural effusion with mild left basilar opacities which could represent associated atelectasis or pneumonia. Renal Ultrasound 10/09/24 14:29 IMPRESSION: 1. Mild left hydronephrosis. Abdomen/Pelvis CT 10/14/24 16:15 IMPRESSION: Extraluminal air is identified within the deep pelvis, an interval change from previous examination. Free fluid is now identified within the pelvis surrounding this area of extraluminal air, for which a contained perforation is suspected. 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 These findings were discussed with Dr. Brown at 4:55 PM on 10/14/2024 CT cystogram may elucidate these findings clearer, if the patient is clinically able. Pelvis CT 10/17/24 15:35 IMPRESSION: Fecal stasis of increased attenuation within the rectosigmoid colon. Streak artifact from the full strength contrast within the bladder precludes adequate evaluation of the surrounding structures. Given retrograde pyelogram 2 hours earlier, likely direct visual inspection of the bladder for the presence or absence of an enterovesicular fistula was performed at that time. Labs Labs: Laboratory Results - last 24 hr 10/16/24 10/17/24 10/17/24 20:47 08:01 11:51 POC Capillary Glucose 190 H 121 H 128 H 10/17/24 10/17/24 13:59 17:00 POC Capillary Glucose 115 H 141 H Quality VTE Prophylaxis VTE prophylaxis: mechanical ordered
[2024-10-17] MEDS: ATORVASTATIN 40 MG TABLET PO (20:33)
[2024-10-17] MEDS: guaiFENesin 12 HR 600 MG TABCR PO (20:34)
[2024-10-17] MEDS: HEPARIN SODIUM 5,000 UNITS/ML VIAL 5000 UNITS SUB-Q (21:31)
[2024-10-17] MEDS: INSULIN GLARGINE (*BKC) 100 UNITS/ML 10 UNITS SUB-Q (21:40)
[2024-10-17 21:58] LABS: Glucose Point of Care 251 mg/dl (65-105)
--- NOTE | 2024-10-17 22:20 | PC.NURSE ---
pt resting in bed on room air. pt states she is uncomfortable, but does not need any pain medication or tylenol. pt repositioned in bed and states she feels better. pt denies nausea at this time. iv and kasper catheter remain in tact.
[2024-10-18 04:55] VITALS: BP 145/63; PULSE 64; RESP 16; TEMP 36.4; O2SAT 97
[2024-10-18] MEDS: HEPARIN SODIUM 5,000 UNITS/ML VIAL 5000 UNITS SUB-Q ×2 (04:59→13:15)
[2024-10-18] MEDS: metroNIDAZOLE 500 MG TABLET PO ×2 (04:59→13:14)
[2024-10-18 08:00] LABS: Glucose Point of Care 193 mg/dl (65-105)
[2024-10-18] MEDS: FLUoxetine HCL 20 MG CAPSULE 40 MG PO (08:23)
[2024-10-18] MEDS: FERROUS SULFATE 325 MG TABLET DR PO (08:24)
[2024-10-18] MEDS: ASPIRIN 81 MG ENTERIC TABLET PO (08:25)
[2024-10-18] MEDS: DOCUSATE SODIUM 100 MG CAPSULE PO (08:25)
[2024-10-18] MEDS: CHOLECALCIFEROL 1,000 UNITS TABLET 1000 UNITS PO (08:25)
[2024-10-18] MEDS: ASCORBIC ACID 500 MG TABLET 1000 MG PO (08:26)
[2024-10-18] MEDS: guaiFENesin 12 HR 600 MG TABCR PO (08:26)
[2024-10-18] MEDS: THERAPEUTIC MULTIVITAMINS/MINERALS TAB (*BKC) 1 TABLET PO (08:27)
[2024-10-18] MEDS: PANTOPRAZOLE 40 MG TABLET PO (08:27)
[2024-10-18] MEDS: INSULIN ASPART (*BKC) 100 UNITS/ML SUB-Q ×3 (08:28→17:19)
[2024-10-18] MEDS: cefTRIAXone 2 GM/NS 100 ML 2 GM/100 ML BAG IVPB (08:28)
--- NOTE | 2024-10-18 10:36 | WPDANESPN ---
Anes - Prog Note Post-Op Date/Time: 10/18/24 10:36 Cardiovascular status: other (anemia) Respiratory status: normal Airway patency: baseline Mental status: baseline Post-Op hydration status: normal Vital Signs: Last Vital Signs Temp 36.4 C 10/18/24 04:55 Pulse 64 10/18/24 04:55 Resp 16 10/18/24 04:55 BP 145/63 H 10/18/24 04:55 Pulse Ox 97 10/18/24 04:55 O2 Del Method Room Air 10/17/24 20:00 O2 Flow Rate 8 10/17/24 13:47 Pain Score (VAS): 01/06 I/O: Intake & Output 10/17/24 10/18/24 10/18/24 23:59 07:59 15:59 Intake Total 480 400 240 Output Total 1500 400 Balance -1020 0 240 Laboratory Tests 10/15/24 05:05 10/15/24 05:05 10/17/24 10/17/24 10/17/24 11:51 13:59 17:00 POC Capillary Glucose 128 H 115 H 141 H 10/17/24 10/18/24 21:35 07:57 POC Capillary Glucose 251 H 193 H Microbiology 10/15/24 14:47 Stool Escherichia coli Shiga Toxins - Final 10/15/24 14:47 Stool Salmonella/Shigella Culture - Final 10/15/24 14:47 Stool Campylobacter Antigen Assay - Final Post-procedural complaints: none Patient Feedback: Patient satisfied with anesthetic care.
[2024-10-18 11:04] LABS: Hematocrit 24.9 % (37.0-47.0); Hemoglobin 8.2 g/dL (12.0-15.0); Mean Corpuscular HGB Conc 32.9 g/dl (32-36); Mean Corpuscular Hemoglobin 29.5 pg (26-34); Mean Corpuscular Volume 89.6 fl (80-100); Mean Platelet Volume 10.4 fl (7.4-10.4); Platelet Count Result 308 k/mm3 (150-375); Red Blood Count 2.78 M/mm3 (4.2-5.4); Red Cell Distribution Width 15.3 % (11.5-14.5); White Blood Count 9.2 K/mm3 (4.5-10.0)
[2024-10-18 11:19] LABS: Anion Gap 5 mmol/L (4-12); Blood Urea Nitrogen 36 mg/dL (7-17); Calcium 7.8 mg/dL (8.4-10.2); Carbon Dioxide 28 mmol/L (22-30); Chloride 105 mmol/L (98-107); Estimated CRCL calculation 30 ml/min; Estimated Glomerular Filt Rate 40; Glucose 177 mg/dL (65-110); Magnesium 1.9 mg/dL (1.6-2.3); Potassium 3.4 mmol/L (3.4-5.0); Sodium 138 mmol/L (137-145)
--- NOTE | 2024-10-18 11:28 | PM.PNGS ---
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 Status: Acute Assessment and Plan: no evidence of fistula on CT or cystoscopy, UTI improved c abx and exam benign, cont low fiber diet, ok to dc home from surgical standpoint c f/u as outpt and likely colonoscopy (2) Acute UTI: Code(s): N39.0 - Urinary tract infection, site not specified Status: Acute Assessment and Plan: improved, cont abx Subjective Subjective Date/Time Seen: 10/18/24 11:28 Interval history: doing better, susan diet, lower abd pain improved Review of Systems Review of Systems: All systems reviewed & are unremarkable except as noted in HPI and below Exam Const: General: cooperative, comfortable, no acute distress and ill appearing Cardio: Rate: regular rate Rhythm: regular rhythm GI: Inspection: normal to inspection and non-distended GI Palp: Yes abdominal tenderness, Yes Soft to palpation, Yes Tenderness to palpation present (GI), No Guarding due to palpation present (GI) and No Rigid due to palpation Objective Data Vital Signs Vital Signs: Vital Signs - 24 hr 10/17/24 12:45 10/17/24 13:47 10/17/24 14:00 Temperature 36.8 C 36.6 C Pulse Rate 67 58 L 61 Respiratory Rate 18 15 22 H Blood Pressure 140/58 L 89/42 L 127/60 Pulse Oximetry 98 97 97 Oxygen Delivery Room Air Simple Face Mask Room Air Oxygen Flow Rate 8 10/17/24 14:15 10/17/24 14:30 10/17/24 15:50 Temperature 36.4 C Pulse Rate 61 62 62 Respiratory Rate 16 16 14 Blood Pressure 133/54 L 133/53 L 149/58 H Pulse Oximetry 97 97 100 Oxygen Delivery Room Air Room Air Oxygen Flow Rate 10/17/24 16:05 10/17/24 16:35 10/17/24 20:53 Temperature 36.6 C 36.6 C 36.4 C Pulse Rate 62 64 67 Respiratory Rate 16 16 16 Blood Pressure 141/54 H 140/54 L 163/64 H Pulse Oximetry 100 100 98 Oxygen Delivery Oxygen Flow Rate 10/17/24 20:00 10/18/24 04:55 Temperature 36.4 C Pulse Rate 64 Respiratory Rate 16 Blood Pressure 145/63 H Pulse Oximetry 97 Oxygen Delivery Room Air Oxygen Flow Rate Intake/Output Intake/Output: Intake & Output 10/15/24 10/16/24 10/17/24 10/18/24 23:59 23:59 23:59 23:59 Intake Total 1180 2180 880 640 Output Total 2600 2050 3935 400 Balance -1420 130 -3055 240 Meds/Results Medications: Active Medications Generic Name Dose Route Start Last Admin Trade Name Freq PRN Reason Stop Dose Admin Acetaminophen 650 mg 10/09/24 15:44 10/17/24 08:41 Acetaminophen 325 Mg Tablet PO 650 mg Q6H PRN Administration Pain Rated 5 or Less, Fever Albuterol/Ipratropium 3 ml 10/09/24 14:33 Ipratropium 0.5 Mg/Albuterol Sulfate 2.5 Mg Ampul.Neb 3 Ml NEBULIZE Q6HRT PRN Shortness Of Breath Or Wheezing Ascorbic Acid 1,000 mg 10/10/24 09:00 10/18/24 08:26 Ascorbic Acid 500 Mg Tablet PO 1,000 mg DAILY [facility] Administration Aspirin 81 mg 10/10/24 09:00 10/18/24 08:25 Aspirin 81 Mg Enteric Tablet PO 11/09/24 08:59 81 mg DAILY [facility] Administration Atorvastatin Calcium 40 mg 10/09/24 21:00 10/17/24 20:33 Atorvastatin 40 Mg Tablet PO 40 mg QHS [facility] Administration Benzocaine 1 lozenge 10/09/24 14:33 Benzocaine/Menthol (*Bkc) 18 Ea Lozenge PO PRN PRN Sore Throat Benzonatate 100 mg 10/09/24 14:33 Benzonatate 100 Mg Capsule PO TID PRN Cough Dextrose 12.5 gm 10/09/24 13:29 Dextrose 50% 25 Gm/50 Ml Syringe IV PUSH PRN PRN Hypoglycemia Protocol Docusate Sodium 100 mg 10/10/24 09:00 10/18/24 08:25 Docusate Sodium 100 Mg Capsule PO 100 mg DAILY [facility] Administration Fentanyl Citrate 25 mcg 10/09/24 15:44 Fentanyl Citrate Inj (*Crx) 100 Mcg/2 Ml Vial IV PUSH Q4H PRN Pain Rated 6 or Greater Ferrous Sulfate 325 mg 10/10/24 09:00 10/18/24 08:24 Ferrous Sulfate [address] PO 12/14/24 08:59 325 mg DAILY [facility] Administration Fluoxetine HCl 40 mg 10/10/24 09:00 10/18/24 08:23 Fluoxetine Hcl 20 Mg Capsule PO 40 mg DAILY [facility] Administration Glucagon 1 mg 10/09/24 13:29 Glucagon For Inj 1 Mg Vial IM PRN PRN Hypoglycemia Protocol Glucose 15 gm 10/09/24 13:29 10/13/24 08:12 Glucose Oral Gel 15 Gm Of Glucse In 37.5 Gm Tube PO 15 gm PRN PRN Administration Hypoglycemia Protocol Guaifenesin 600 mg 10/09/24 15:00 10/18/24 08:26 Guaifenesin 12 Hr 600 Mg Tabcr PO 600 mg Q12HR [facility] Administration Heparin Sodium (Porcine) 5,000 units 10/10/24 22:00 10/18/24 04:59 Heparin Sodium 5,000 Units/Ml Vial SUB-Q 5,000 units Q8HR [facility] Administration Dextrose 1,000 mls @ 100 mls/hr 10/09/24 13:29 Dextrose 5% 1,000 Ml IVPB PRN PRN Hypoglycemia Protocol Ceftriaxone Sodium 2 gm in 100 mls @ 200 mls/hr 10/11/24 09:00 10/18/24 08:28 Rocephin 2 Gm/Ns 100 Ml IVPB 200 mls/hr DAILY [facility] Administration Insulin Aspart 3 units 10/09/24 17:00 10/18/24 08:28 Insulin Aspart (*Bkc) 100 Units/Ml SUB-Q 11/08/24 16:59 3 units TIDWM [facility] Administration Insulin Aspart 2 - 5 units 10/13/24 08:00 10/18/24 08:09 Insulin Aspart (*Bkc) 100 Units/Ml SUB-Q Not Given TIDWM [facility] Protocol Insulin Glargine 10 units 10/13/24 21:00 10/17/24 21:40 Insulin Glargine (*Bkc) 100 Units/Ml SUB-Q 10 units QHS [facility] Administration Metronidazole 500 mg 10/15/24 12:00 10/18/24 04:59 Metronidazole 500 Mg Tablet PO 500 mg Q8HR [facility] Administration Multivitamins/Calcium 1 tablet 10/10/24 09:00 10/18/24 08:27 Therapeutic Multivitamins/Minerals Tab (*Bkc) PO 1 tablet DAILY [facility] Administration Ondansetron HCl 4 mg 10/09/24 09:54 10/16/24 20:53 Ondansetron Inj 4 Mg/2 Ml Vial IV PUSH 4 mg Q4H PRN Administration Nausea Pantoprazole Sodium 40 mg 10/09/24 21:00 10/18/24 08:27 Pantoprazole 40 Mg Tablet PO 40 mg Q12HR [facility] Administration Vitamin D 1,000 units 10/10/24 09:00 10/18/24 08:25 Cholecalciferol 1,000 Units Tablet PO 1,000 units DAILY [facility] Administration Radiology Results: ITS Impressions Chest X-Ray 10/09/24 09:14 IMPRESSION: 1. Small left pleural effusion with mild left basilar opacities which could represent associated atelectasis or pneumonia. Renal Ultrasound 10/09/24 14:29 IMPRESSION: 1. Mild left hydronephrosis. Abdomen/Pelvis CT 10/14/24 16:15 IMPRESSION: Extraluminal air is identified within the deep pelvis, an interval change from previous examination. Free fluid is now identified within the pelvis surrounding this area of extraluminal air, for which a contained perforation is suspected. 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 These findings were discussed with Dr. Brown at 4:55 PM on 10/14/2024 CT cystogram may elucidate these findings clearer, if the patient is clinically able. Pelvis CT 10/17/24 15:35 IMPRESSION: Fecal stasis of increased attenuation within the rectosigmoid colon. Streak artifact from the full strength contrast within the bladder precludes adequate evaluation of the surrounding structures. Given retrograde pyelogram 2 hours earlier, likely direct visual inspection of the bladder for the presence or absence of an enterovesicular fistula was performed at that time. Labs Labs: Laboratory Results - last 24 hr 10/17/24 10/17/24 10/17/24 11:51 13:59 17:00 WBC RBC Hgb Hct MCV MCH MCHC RDW Plt Count MPV Sodium Potassium Chloride Carbon Dioxide Anion Gap BUN Creatinine Estim Creat Clear Calc Estimated GFR Glucose POC Capillary Glucose 128 H 115 H 141 H Calcium Magnesium 10/17/24 10/18/24 10/18/24 21:35 07:57 10:59 WBC 9.2 RBC 2.78 L Hgb 8.2 L Hct 24.9 L MCV 89.6 MCH 29.5 MCHC 32.9 RDW 15.3 H Plt Count 308 D MPV 10.4 Sodium 138 Potassium 3.4 Chloride 105 Carbon Dioxide 28 Anion Gap 5 BUN 36 H Creatinine 1.30 H Estim Creat Clear Calc 30 Estimated GFR 40 L Glucose 177 H POC Capillary Glucose 251 H 193 H Calcium 7.8 L Magnesium 1.9
[2024-10-18 12:06] LABS: Glucose Point of Care 166 mg/dl (65-105)
[2024-10-18] MEDS: POTASSIUM CHLORIDE 20 MEQ ER TABLET 40 MEQ PO (12:13)
[2024-10-18] MEDS: ONDANSETRON INJ 4 MG/2 ML VIAL IV PUSH (13:15)
--- NOTE | 2024-10-18 13:46 | PM.DS ---
DS: Admitting Diagnosis Discharge Date 10/18/24 Admitting Diagnosis Weakness DS: Discharge Diagnosis Discharge Diagnosis (1) Gram negative sepsis: Code(s): A41.50 - Gram-negative sepsis, unspecified Status: Acute (2) Endometrial cancer: Onset Date: 2009 Code(s): C54.1 - Malignant neoplasm of endometrium Status: Acute (3) JEFFERY (acute kidney injury): Code(s): N17.9 - Acute kidney failure, unspecified Status: Acute Assessment and Plan: - creatinine 3.5 and GFR 13, previously 1.1 and GFR 48 on admission - renal ultrasound: mild left hydronephrosis monitor Is and Os Creatinine continues to improve continue IVF Urology consulted for left hydronephrosis Clements catheter placed expected to improve with this Repeat CT with possible enterovesical fistula (4) Type 2 diabetes mellitus with hyperglycemia, with long-term current use of insulin: Code(s): E11.65 - Type 2 diabetes mellitus with hyperglycemia; 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 hold lantus and lispro only on low dose SSI (5) ARF (acute renal failure): Qualifiers: Acute renal failure type: unspecified Qualified Code(s): N17.9 - Acute kidney failure, unspecified Code(s): N17.9 - Acute kidney failure, unspecified Status: Acute (6) Sepsis: Qualifiers: Sepsis acute organ dysfunction status: unspecified Sepsis type: sepsis due to unspecified organism Qualified Code(s): A41.9 - Sepsis, unspecified organism Code(s): A41.9 - Sepsis, unspecified organism Status: Acute Assessment and Plan: resolving WBC 12 from 37.2 on admission, HR wnl, and continue IVF and monitor lactic acid - suspected source: pneumonia and UTI on ceftriaxone and azithromycin on 10/09 blood culture positive for E coli concludes azithromycin Mild leukocytosis still persist Plan Thrombocytopenia: Likely due to sepsis. Will continue to monitor heparin on hold. thrombocytopenia improving E coli bacteremia Likely from UTI continue Monitoring blood cultures. Sensitive to ceftriaxone. repeat blood culture continue abx above Diet: Diabetic GI Prophylaxis: Continue home pantoprazole DVT Prophylaxis: Sq heparin on hold due to thrombocytopenia, resumed now. Lines: Peripheral Code Status: Full code DS: Summary Hospital Course Hospital Course: Intermittent abdominal discomfort reported. 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 on 10/17 patient had a cystoscopy it was normal without any obstruction, patient stats feeling better, seen by surgery and urologist service, patient is clinically stable, will discharge patient today [facility]. Time Spent with Patient Time attestation: Total time spent providing and/or coordinating discharge services: Exam Narrative: Patient is comfortable, NAD HEENT: eyes are clear and none icteric LUNGS:CTA HEART: RR S1S2 ABD: BS+, Soft and nontender Lower extremities: no edema SKIN: nonjaundiced Neuro: grossly intact. DS: Data Data Completed and Pending Labs on day of discharge: Labs from last 24 hours 10/18/24 10/18/24 10/18/24 12:03 10:59 07:57 WBC 9.2 RBC 2.78 L Hgb 8.2 L Hct 24.9 L MCV 89.6 MCH 29.5 MCHC 32.9 RDW 15.3 H Plt Count 308 D MPV 10.4 Sodium 138 Potassium 3.4 Chloride 105 Carbon Dioxide 28 Anion Gap 5 BUN 36 H Creatinine 1.30 H Estim Creat Clear Calc 30 Estimated GFR 40 L Glucose 177 H POC Capillary Glucose 166 H 193 H Calcium 7.8 L Magnesium 1.9 10/17/24 10/17/24 10/17/24 21:35 17:00 13:59 WBC RBC Hgb Hct MCV MCH MCHC RDW Plt Count MPV Sodium Potassium Chloride Carbon Dioxide Anion Gap BUN Creatinine Estim Creat Clear Calc Estimated GFR Glucose POC Capillary Glucose 251 H 141 H 115 H Calcium Magnesium Discharge Plan Discharge Attending physician on discharge: Freddy Brown Consulting providers: Lenny Meehan; Katheryn Hankins; Varsha Phipps; Raj Patiño; Stephane Calderon; Efren Wei; Leny Martinez; Porfirio Pina V.; Deo Araya; Freddy Brown; Bette Warner Discharging Clinician: Sia Johnson Anticipated Discharge Date/Time: 10/18/24 13:48 Patient Disposition: Inpatient Rehab Facility Activity: as tolerated Diet: diabetic and low fiber Discharge Instructions: accu checks a.c. and HS PT OT to continue to evaluate Follow-up/Referrals: Katheryn Hankins MD [Physician] - 2 Weeks Cassidy Rogers MD [Primary Care Provider] - 1 Week Lenny Meehan MD [Physician] - 2 Weeks Discharge Medications: New guaifenesin [Mucus Relief ER] 600 mg Tablet Extended Release 12hr 600 mg PO Q12HR Qty: 30 0RF Continued ferrous sulfate 325 mg (65 mg iron) tablet 325 mg PO DAILY cholecalciferol (vitamin D3) 125 mcg (5,000 unit) Capsule 125 mcg PO DAILY aspirin 81 mg Tablet 81 mg PO DAILY (DME) pen needle, diabetic [BD Ultra-Fine Micro Pen Needle] 32 gauge x 1/4 needle See Rx Instructions .Route Qty: 100 1RF Rx Instructions: For use with insulin pen ascorbic acid (vitamin C) [Vitamin C] 500 mg Tablet 1,000 mg PO DAILY 30 Days Qty: 60 0RF docusate sodium 100 mg Capsule 100 mg PO DAILY 30 Days Qty: 30 0RF Discontinued lisinopril 40 mg tablet 40 mg PO DAILY insulin glargine [Basaglar KwikPen U-100 Insulin] 100 unit/mL (3 mL) insulin pen 15 unit subcut QHS insulin lispro 100 unit/mL solution 3 unit subcut TIDWM amlodipine 10 mg tablet 10 mg PO DAILY Qty: 90 0RF No Action polyethylene glycol 3350 [Miralax] 17 gram Powder In Packet 17 g PO QAM Qty: 0 0RF miconazole nitrate [Antifungal (miconazole)] 2 % Cream 1 applic topical Q12HR Qty: 1 0RF sennosides-docusate sodium [Senokot-S] 8.6-50 mg Tablet 1 tab PO BID Qty: 0 0RF melatonin 3 mg Tablet 9 mg PO HS PRN (Reason: Insomnia) Qty: 0 0RF amlodipine 10 mg Tablet 10 mg PO DAILY Qty: 30 0RF gabapentin 100 mg Capsule 100 mg PO BID Qty: 60 0RF fluoxetine 40 mg capsule 40 mg PO DAILY Qty: 30 0RF atorvastatin 40 mg tablet 40 mg PO QHS Qty: 30 1RF pantoprazole 40 mg Tablet,Delayed Release (Dr/Ec) 40 mg PO Q12H 30 Days Qty: 60 0RF Centrum Silver Women 8 mg iron-400 mcg-300 mcg Tablet 1 tablet PO DAILY Qty: 60 0RF Other Ambulatory Orders: Complete Blood Count with Diff (Routine) Timeframe: 1 Week Location: Determined by Patient Ordered By: Freddy Brown Comprehensive Metabolic Panel (Routine) Timeframe: 1 Week Location: Determined by Patient Ordered By: Freddy Brown Date of admission: 10/09/24 13:39 Primary Care Provider: Cassidy Rogers Admitting Provider: Stephanie Levi Attending physician on admission: Sia Johnson Condition: Improved
[2024-10-18 14:00] VITALS: BP 124/48; PULSE 68; RESP 14; TEMP 36.6; O2SAT 99
[2024-10-18 16:54] LABS: Glucose Point of Care 182 mg/dl (65-105)
--- NOTE | 2024-10-18 18:23 | PC.NURSE ---
Order to remove kasper catheter by Dr. Meehan. Catheter removed at 1505. Report called to [facility]. Updated [facility] RN regarding patient having not voided yet. RN is aware and states they can manage monitor once patient arrives. Patient awaiting ambulance transport at this time.
== END 2024-10-18 20:08 | DRG 871 ==
LOC: ANHED 09:49 → ANHIMU 10:30 → ANH2MED 10-12 23:51
PROVIDERS: Internal Medicine; Student in an Organized Health Care Education/Training Program; Urology; Admitting Provider Internal Medicine; Emergency Provider Emergency Medicine; PCP Family Medicine; Visit Provider Family Medicine
PROC: BT14YZZ Fluoroscopy of Kidneys, Ureters and Bladder using Other Contrast (ICD-10-PCS; CPT 52352; principal; 2024-10-17 14:00)
DX: A41.51 Sepsis due to Escherichia coli [E. coli] (principal); J18.9 Pneumonia, unspecified organism; N17.9 Acute kidney failure, unspecified; I69.354 Hemiplegia and hemiparesis following cerebral infarction affecting left non-dominant side; N13.6 Pyonephrosis; N30.80 Other cystitis without hematuria; I10 Essential (primary) hypertension; D69.6 Thrombocytopenia, unspecified; E11.65 Type 2 diabetes mellitus with hyperglycemia; E11.42 Type 2 diabetes mellitus with diabetic polyneuropathy; E55.9 Vitamin D deficiency, unspecified; E78.5 Hyperlipidemia, unspecified; M19.90 Unspecified osteoarthritis, unspecified site; M21.372 Foot drop, left foot; F32.A Depression, unspecified; F41.9 Anxiety disorder, unspecified; Z20.822 Contact with and (suspected) exposure to COVID-19; Z96.651 Presence of right artificial knee joint; Z79.4 Long term (current) use of insulin; Z79.82 Long term (current) use of aspirin; Z85.42 Personal history of malignant neoplasm of other parts of uterus; Z87.11 Personal history of peptic ulcer disease; Z80.0 Family history of malignant neoplasm of digestive organs
CPT/HCPCS: 36415; 71046; 72192; 74176; 74420; 76775; 80048; 80053; 82948; 83605; 83735; 84145; 85025; 85027; 85055; 85610; 85730; 86140; 87040; 87045; 87077; 87086; 87088; 87186; 87427; 87449; 87637; 87641; 93005; 96365; 96366; 96367; 97110; 97161; 97165; 97530; 97535; 99285; A9270; C1758; C1769; G0378; J0456; J0696; J1100; J1644; J1815; J2003; J2371; J2405; J2704; J7030; J7070; J7120; Q9966; Q9967